=== PATIENT | female | born 2000 | race Hispanic/Latino ===

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

== ENCOUNTER 2022-11-10 00:15 | Emergency (ER) | payer OTHER ==
--- OUTSIDE RECORDS SUMMARY | 2022-11-10 00:27 | XMS REPORT | Continuity of Care Document ---
:2000 Author Organization [facility] t Address [address] [facility] [address] [place] [address] Care Team Providers Name Role Phone Radha Shore Primary Care Physician CORRINE HERNANDEZ Attending Clinician Unavailable CORRINE HERNANDEZ Attending Clinician Unavailable Joshua Dexter MD Attending Clinician JOSHUA DEXTER Attending Clinician Unavailable JOSHUA DEXTER Attending Clinician Unavailable Matheus Reina MD Attending Clinician Lisa Ross MD Attending Clinician [phone] SIN GELLER Attending Clinician Unavailable RADHA BARTHOLOMEW Attending Clinician Unavailable Doctor Unassigned, Ceres Attending Clinician Unavailable Radha Shore Attending Clinician LINDA BLAS Attending Clinician Unavailable 1, [facility] Room Attending Clinician Unavailable Linda Blas MD Attending Clinician LU EASON Attending Clinician Unavailable eJnaro MCKINNEY, Lu [place] Attending Clinician Risk, [facility] Provider/High Attending Clinician UnavailFabiola Bennett Attending Clinician Bin Diane MD Attending Clinician [phone] BIN DIANE Attending Clinician Unavailable KASANDRA VALENTINO Attending Clinician Unavailable KASANDRA VALENTINO Attending Clinician Unavailable Provider, [facility] Attending Clinician Unavailable Leda Roca MD Attending Clinician LEDA ROCA Attending Clinician Unavailable LEDA ROCA Attending Clinician Unavailable Arroyo [facility] Blanca Gaines Attending Clinician [phone] [facility] Nurse Vst, Fp Nrpt Pills Class Attending Clinician Unavailable Dixon BANKS, Guilherme Attending Clinician Veronica BANKS, Marni Attending Clinician JESSICA GARCIA Attending Clinician Unavailable Jessica Garcia DO Attending Clinician Don Frost MD Attending Clinician Dalton BANKS, Deborah [place] Attending Clinician BLANCA ARROYO Attending Clinician Unavailable Vega Ramos DO Attending Clinician Cassandra Burch Attending Clinician CASSANDRA GARCIA Attending Clinician Unavailable Ultrasound, [facility] Attending Clinician Unavailable Mohan Kaur MD Attending Clinician UNKNOWN, ATTENDING Attending Clinician Unavailable Delfina [facility] Fern[facility] Attending Clinician [phone] Lab, Ang-chp Attending Clinician Unavailable HENRY MATHIS Attending Clinician Unavailable Joshua Dexter MD Admitting Clinician JOSHUA DEXTER Admitting Clinician Unavailable JESSICA GARCIA Admitting Clinician Unavailable Jessica Garcia DO Admitting Clinician Payers Payer Name Policy Type Policy Number Effective Date Expiration Date [facility]- P [id number] MEDICAID [employer] [id number] 2022 STAR 00:00:00 Problems Condition Condition Condition Status Onset Resolution Last Treating Co mments Source Name Details Category Date Date Treatment Clinician Date 39 weeks 39 weeks Disease Active Unive rs gestation gestation 2-19 ity of of of 00:00: [place] 00 [facility] Depression Depression Disease Active U nivers 2-19 ity of 00:00: [place] 00 Medical Branch Anemia of Anemia of Disease Active Uni vers mother in mother in 8-09 [place]y of , , 00:[place] antepartum antepartum 00 Me dical Branch Rubella Rubella Disease Active Univers non-immune non-immune 6-30 it y of status, status, 00:00: [place] antepartum antepartum 00 Me dical Branch Previous Previous Disease Active Unive rs baby with baby with 6-28 ity of 00:00: [place] growth growth 00 Medical restrictio restrictio Br anch n n Previous Previous Disease Active Unive rs 6-28 ity of section section 00:00: [place] 00 Medical Branch Disease Active Uni vers related related 6-28 ity of nausea and nausea and 00:[place] vomiting, vomiting, 00 Medi stacy antepartum antepartum Br anch Vaginal Vaginal Disease Active Univers discharge discharge 6-28 ity of during during 00:00: [place] 00 Medi stacy in first in first Branch trimester trimester Disease Active Uni vers with with 6-28 [place] of abdominal abdominal 00:00[place] pain of pain of 00 Medical right right Branch lower lower quadrant, quadrant, antepartum antepartum 37 weeks 37 weeks Disease Active 2020-06 Unive rs gestation gestation 2-20 ity of of of 00:00: [place] 00 Medi stacy Branch GBS (group GBS (group Disease Active 2020-06 U nivers B B 2-14 ity of Streptococ Streptococ 00:00: [place] cus cus 00 Medical carrier), carrier), Bran ch +RV +RV culture, culture, currently currently Anemia of Anemia of Disease Active 2020-06 Uni vers mother in mother in 0-25 ity of , , 00:[place] antepartum antepartum 00 Me dical Branch COVID-19 COVID-19 Disease Active Unive rs affecting affecting 8-19 ity of , , 00:[place] antepartum antepartum 00 Me dical Branch Chlamydia Chlamydia Disease Active Uni vers infection infection 8-05 ity of affecting affecting 00:[place] Med[place]acy in second in second Bran ch trimester trimester Limited Limited Disease Active Univers 8-04 ity of care in care in 00:00: [place] second second 00 Medical trimester trimester Bran ch Rubella Rubella Disease Active Univers nonimmune nonimmune 01-28 ity of status, status, 00:00: [place] delivered, delivered, 00 Me dical current current Branch hospitaliz hospitaliz ation ation Supervisio Supervisio Disease Active U nivers n of high n of high 01-28 ity of risk risk 00:00: [place] 00 Medi stacy in first in first Branch trimester trimester Maternal Maternal Disease Active Unive rs varicella, varicella, 01-28 it y of non-immune non-immune 00:00: [place] 00 [place] Allergies, Adverse Reactions, Alerts Allergy Allergy Status Severity Reaction(s) Onset Inactive Treating Comm ents Source Name Type Date Date Clinician NO KNOWN Drug Active Univers ALLERGIE Class ity of S [facility] Social History Social Habit Start Date Stop Date Quantity Comments Source ASSERTION 2021-11-29 University of 00:00:[address] [facility] History SDOH University o f Alcohol Frequency [place] M edical Branch History SDOH University o f Alcohol Std [place] Medical Drinks Branch History SDOH University o f Alcohol Binge [place] Medic al [place] Alcohol intake 2022-08-16 2022-08-16 Ex-drinker [facility] 00:00:00 00:00:00 (finding) [facility] Exposure to 2022-08-05 2022-08-15 Not sure [facility] SARS-CoV-2 00:00:00 14:23:00 [facility] (event) [place] Tobacco use and 2022-02-02 2022-02-02 Smokeless tobacco Un iversity of exposure 00:00:00 00:00:00 non-user [facility] Alcohol Comment 2021-12-22 2021-12-22 quit with Universit y of 00:00:00 00:00:[address] [facility] Sex Assigned At 2000 2002 Universit y of 00:00:00 00:00:[address] [facility] Smoking Status Start Date Stop Date Source Never smoked tobacco [facility] Medications Ordered Filled Start Stop Current Ordering Indication Dosage Frequency Signature Comments Components Source Medication Medication Date Date Medication? Clinician (SIG) Name Name Yes [id number] 1{tbl} Take 1 Univers vitamin 2-21 tablet by ity of w/FA tablet 00:00[place] 00 the Medical morning. Branch docusate Yes [id number] 200mg Take 2 U nivers 100 mg 2-21 capsules ity of capsule 00:00: by mouth [place] 00 once daily Medical as needed Branch for Constipati on. ferrous Yes [id number] 325mg Take 1 Un jag sulfate 325 2-21 tablet by ity of mg (65 mg 00:00: [place] iron) 00 the Medical tablet morning Branch and 1 tablet in the evening. ibuprofen Yes [id number] 600mg Take 1 Univers 600 mg 2-21 tablet by ity of tablet 00:00: mouth [place] 00 every 6 Medical (six) Branch hours as needed (Pain). Take with food or milk. HYDROcodone 2022- Yes [id number] 1{tbl} Take 1 U nivers -acetaminop 2-21 08-25 tablet by it y of hen 5-325 00:00: 05:59 mouth [place] mg tablet 00 :00 every 6 Medical (six) Branch hours as needed (Pain scale above 4) for up to 7 days. Do not exceed 3 grams of acetaminop hen in 24 hours. Indication s: acute pain acetaminoph 2022- No 650mg 650 mg, U nivers en 08-16 Oral, ity of (TYLENOL) 23:30: 00:33 ONCE, 1 [place] tablet 650 00 :00 dose, On Medic al mg Tue08/16/22 at 1730, Routine diphenhydrA 2022- No 25mg 25 mg, Uni vers MINE 08-16 Slow IV ity of (BENADRYL) 23:30: 00:32 Push, [place] injection 00 :00 ONCE, 1 Medical 25 mg dose, On Branch Tue08/16/22 at 1730, Routine polyethylen Yes 17g 17 g, Unive rs e glycol -20 Oral, ity of 3350 powder 15:00: DAILY, [place] 17 g 00 First dose Medical on Tue08/16/22 at 0900, Until Discontinu ed, Routine polyethylen Yes 17g 17 g, Unive rs e glycol 2-20 Oral, ity of 3350 powder 15:00: DAILY, [place] 17 g 00 First dose Medical on [facility] 08/16/22 at 0900, Until Discontinu ed, Routine varicella Yes 1{each} 0.5 mL (1 Univers virus 2-20 Each), ity of vaccine 13:54: [place] live 08 , Medical (VARIVAX) ONCE-PRIOR Bran ch injection TO and diluent DISCHARGE, vial 1 dose, Starting on [facility] 08/16/22 at 0754, Until Discontinu ed, Routine, Give vaccine prior to discharge varicella Yes 1{each} 0.5 mL (1 Univers virus 2-20 Each), ity of vaccine 13:54: [place] live 08 , Medical (VARIVAX) ONCE-PRIOR Bran ch injection TO and diluent DISCHARGE, vial 1 dose, Starting on [facility] 08/16/22 at 0754, Until Discontinu ed, Routine, Give vaccine prior to discharge ibuprofen Yes 600mg 600 mg, Univ ers (IBU) 2-20 Oral, Q6H, ity of tablet 600 06:00: First dose [place] mg 00 on [facility] [place] [facility] 08/16/22 at Branch 0000, Until Discontinu ed, Routine ibuprofen Yes 600mg 600 mg, Univ ers (IBU) 2-20 Oral, Q6H, ity of tablet 600 06:00: First dose [place] mg 00 on [facility] [place] [facility] 08/16/22 at Branch 0000, Until Discontinu ed, Routine lactated 2022- No 1000mL at 125 [facility] ers ringers IV 2-20 02-20 mL/hr, ity of infusion 03:45: 05:19 1,000 mL, [place] as 1,000 mL 00 :24 IV Medical Infusion, [place] ONCE, 1 dose, On [place] 08/15/22 at 2145, Routine rho(D) Yes 300ug 300 mcg, Univer s immune 2-20 Intramuscu ity of globulin 03:42: lar, ONCE, [place] as (RHOGAM) 20 For 1 Medical syringe 300 dose, Branch mcg Conditiona l, Routine rho(D) Yes 300ug 300 mcg, Univer s immune 2-20 Intramuscu ity of globulin 03:42: lar, ONCE, [place] as (RHOGAM) 20 For 1 Medical syringe 300 dose, Branch mcg Conditiona l, Routine HYDROcodone 2022-0 Yes 2{tbl} 2 tablet, Univers -acetaminop 2-20 Oral, ity of hen (NORCO 03:42: Q6HPRN, [place] 5) 5-325 mg 15 Starting Medi stacy tablet 2 on [place] tablet 08/15/22 at 2142, Until Discontinu ed, Routine, Pain (scale 7-10), Alternate with Ibuprofen HYDROcodone 2022-0 Yes 1{tbl} 1 tablet, Univers -acetaminop 2-20 Oral, ity of hen (NORCO 03:42: Q6HPRN, [place] 5) 5-325 mg 15 Starting Medi stacy tablet 1 on [place] tablet 08/15/22 at 2142, Until Discontinu ed, Routine, Pain (scale 4-6), Alternate with Ibuprofen human 2022-0 Yes .5mL 0.5 mL, Univers papillomav 2-20 Intramuscu ity of vac,9-zafar(P 03:42: lar, [place] F) 15 ONCE-PRIOR Medical (GARDASIL-9 TO Branch ) syringe DISCHARGE, 0.5 mL 1 dose, Starting on 08/15/22 at 2142, Until Discontinu ed, Routine, Give vaccine prior to discharge diphenhydrA 2022-0 Yes 25mg 25 mg, Univ ers MINE 2-20 Slow IV ity of (BENADRYL) 03:42: Push, [place] injection 15 Q6HPRN, Medical 25 mg Starting Branch on 08/15/22 at 2142, Until Discontinu ed, Routine, Itching diphenhydrA 2022-0 Yes 25mg 25 mg, Univ ers MINE 2-20 Oral, ity of (BENADRYL) 03:42: Q6HPRN, [place] tablet 25 15 Starting Medica l mg on [place] 08/15/22 at 2142, Until Discontinu ed, Routine, Sleep, Itching ondansetron 2022-0 Yes 4mg 4 mg, Slow Univers (ZOFRAN 2-20 IV Push, ity of (PF)) 03:42: Q8HPRN, [place] injection 4 15 Starting Medi stacy mg on [place] 08/15/22 at 2142, Until Discontinu ed, Routine, Nausea and Vomiting (N/V) bisacodyL 2022-0 Yes 10mg 10 mg, Univer s (DULCOLAX) 2-20 Rectal, ity of suppository 03:42: QDAILYPRN, [place] 10 mg 15 Starting Medical on [place] 08/15/22 at 2142, Until Discontinu ed, Routine, Constipati on simethicone 2022-0 Yes 160mg 160 mg, Un jag (GAS RELIEF 2-20 Oral, ity of (SIMETHICON 03:42: PC+HSPRN, [place] E)) 15 Starting Medical chewable on [place] tablet 160 08/15/22 at mg 2141, Until Discontinu ed, Routine, Gas magnesium 2022-0 Yes 30mL 30 mL, Univer s hydroxide 2-20 Oral, ity of (MILK OF 03:42: QDAILYPRN, [place] as MAGNESIA) 15 Starting Medica l 400 mg/5 mL on [place] suspension 08/15/22 at 30 mL 2141, Until Discontinu ed, Routine, Constipati on lactated 2022-0 Yes 1000mL at 125 Unive rs ringers IV 2-20 mL/hr, ity of infusion 03:42: 1,000 mL, [place] 1,000 mL 15 IV Medical Infusion, Branch PRN, 1 dose, Starting on 08/15/22 at 2142, Until Discontinu ed, Routine HYDROcodone 2022-0 Yes 2{tbl} 2 tablet, Univers -acetaminop 2-20 Oral, ity of hen (NORCO 03:42: Q6HPRN, [place] 5) 5-325 mg 15 Starting Medi stacy tablet 2 on [place] tablet 08/15/22 at 2142, Until Discontinu ed, Routine, Pain (scale 7-10), Alternate with Ibuprofen HYDROcodone 2022-0 Yes 1{tbl} 1 tablet, Univers -acetaminop 2-20 Oral, ity of hen (NORCO 03:42: Q6HPRN, [place] 5) 5-325 mg 15 Starting Medi stacy tablet 1 on [place] tablet 08/15/22 at 2142, Until Discontinu ed, Routine, Pain (scale 4-6), Alternate with Ibuprofen human 2022-0 Yes .5mL 0.5 mL, Univers papillomav 2-20 Intramuscu ity of vac,9-zafar(P 03:42: lar, [place] F) 15 ONCE-PRIOR Medical (GARDASIL-9 TO [place] ) syringe DISCHARGE, 0.5 mL 1 dose, Starting on [place] 08/15/22 at 2142, Until Discontinu ed, Routine, Give vaccine prior to discharge diphenhydrA 3-0 Yes 25mg 25 mg, Univ ers MINE 2-20 Slow IV ity of (BENADRYL) 03:42: Push, [place] injection 15 Q6HPRN, Medical 25 mg Starting Branch on 08/15/22 at 2142, Until Discontinu ed, Routine, Itching diphenhydrA 3-0 Yes 25mg 25 mg, Univ ers MINE 2-20 Oral, ity of (BENADRYL) 03:42: Q6HPRN, [place] tablet 25 15 Starting Medica l mg on [facility] 08/15/22 at 2142, Until Discontinu ed, Routine, Sleep, Itching ondansetron 3-0 Yes 4mg 4 mg, Slow Univers (ZOFRAN 2-20 IV Push, ity of (PF)) 03:42: Q8HPRN, [place] injection 4 15 Starting Medi stacy mg on [facility] 08/15/22 at 2142, Until Discontinu ed, Routine, Nausea and Vomiting (N/V) bisacodyL 3-0 Yes 10mg 10 mg, Univer s (DULCOLAX) 2-20 Rectal, ity of suppository 03:42: QDAILYPRN, [place] 10 mg 15 Starting Medical on [facility] 08/15/22 at 2142, Until Discontinu ed, Routine, Constipati on simethicone 2023-0 Yes 160mg 160 mg, Un jag (GAS RELIEF 2-20 Oral, ity of (SIMETHICON 03:42: PC+HSPRN, [place] E)) 15 Starting Medical chewable on [facility] tablet 160 08/15/22 at mg 2, Until Discontinu ed, Routine, Gas magnesium 3-0 Yes 30mL 30 mL, Univer s hydroxide 2-20 Oral, ity of (MILK OF 03:42: QDAILYPRN, [place] as MAGNESIA) 15 Starting Medica l 400 mg/5 mL on [place] suspension 08/15/22 at 30 mL 2141, Until Discontinu ed, Routine, Constipati on lactated 2022- Yes 1000mL at 125 Unive rs ringers IV 2-20 mL/hr, ity of infusion 03:42: 1,000 mL, [place] 1,000 mL 15 IV Medical Infusion, Branch PRN, 1 dose, Starting on 08/15/22 at 2141, Until Discontinu ed, Routine ondansetron 2022- No Slow IV Un jag (ZOFRAN 2-20 02-20 Push, ONCE ity o f (PF)) 02:43: 03:36 INTRA [place] injection 00 :14 PROCEDURE, Medi stacy Starting Branch on 08/15/22 at 2042, Until 08/15/22 at 2135, Routine, Intra-op ondansetron 2022- No Slow IV Un jag (ZOFRAN 2-20 02-20 Push, ONCE ity o f (PF)) 02:43: 03:36 INTRA [place] injection 00 :14 PROCEDURE, Medi stacy Starting Branch on 08/15/22 at 2042, Until 08/15/22 at 2135, Routine, Intra-op ondansetron 2022-2022- No Slow IV Un jag (ZOFRAN 2-20 02-20 Push, ONCE ity o f (PF)) 02:43: 03:36 INTRA [place] injection 00 :14 PROCEDURE, Medi stacy Starting Branch on 08/15/22 at 2042, Until 08/15/22 at 2135, Routine, Intra-op ondansetron 2022-2022- No Slow IV Un jag (ZOFRAN 2-20 02-20 Push, ONCE ity o f (PF)) 02:43: 03:36 INTRA [place] injection 00 :14 PROCEDURE, Medi stacy Starting Branch on 08/15/22 at 2042, Until 08/15/22 at 2135, Routine, Intra-op ondansetron 2022-0 2022- No Slow IV Un jag (ZOFRAN 2-20 02-20 Push, ONCE ity o f (PF)) 02:43: 03:36 INTRA [place] injection 00 :14 PROCEDURE, Medi stacy Starting Branch on 08/15/22 at 2042, Until 08/15/22 at 2135, Routine, Intra-op ondansetron 2022-2022- No Slow IV Un jag (ZOFRAN 2-20 02-20 Push, ONCE ity o f (PF)) 02:43: 03:36 INTRA [place] injection 00 :14 PROCEDURE, Medi stacy Starting Branch on 08/15/22 at 2042, Until 08/15/22 at 2135, Routine, Intra-op ondansetron 2022-2022- No Slow IV Un jag (ZOFRAN 2-20 02-20 Push, ONCE ity o f (PF)) 02:43: 03:36 INTRA [place] injection 00 :14 PROCEDURE, Medi stacy Starting Branch on 08/15/22 at 2042, Until 08/15/22 at 2135, Routine, Intra-op ondansetron 2022-2022- No Slow IV Un jag (ZOFRAN 2-20 02-20 Push, ONCE ity o f (PF)) 02:43: 03:36 INTRA [place] injection 00 :14 PROCEDURE, Medi stacy Starting Branch on 08/15/22 at 2042, Until 08/15/22 at 2135, Routine, Intra-op ondansetron 2022-2022- No Slow IV Un jag (ZOFRAN 2-20 02-20 Push, ONCE ity o f (PF)) 02:43: 03:36 INTRA [place] injection 00 :14 PROCEDURE, Medi stacy Starting Branch on 08/15/22 at 2042, Until 08/15/22 at 2135, Routine, Intra-op oxytocin 2022-2022- No IV Univers (PITOCIN) 2-20 Infusion, ity of 30 units in 02:41: 03:36 CONTINUOUS [place] NS 500 mL 00 :14 PRN, Medical IV infusion Starting Bran ch on 08/15/22 at 2040, Until 08/15/22 at 2135, Routine, Intra-op oxytocin 2022-2022- No IV Univers (PITOCIN) 2-20 Infusion, ity of 30 units in 02:41: 03:36 CONTINUOUS [place] NS 500 mL 00 :14 PRN, Medical IV infusion Starting Bran ch on 08/15/22 at 2040, Until 08/15/22 at 2135, Routine, Intra-op oxytocin 2022- No IV Univers (PITOCIN) 08-16 Infusion, ity of 30 units in 02:41: 03:36 CONTINUOUS [place] NS 500 mL 00 :14 PRN, Medical IV infusion Starting Bran ch on 08/15/22 at 2040, Until 08/15/22 at 2135, Routine, Intra-op oxytocin 2022- No IV Univers (PITOCIN) 08-16 Infusion, ity of 30 units in 02:41: 03:36 CONTINUOUS [place] NS 500 mL 00 :14 PRN, Medical IV infusion Starting Bran ch on 08/15/22 at 2040, Until 08/15/22 at 2135, Routine, Intra-op oxytocin 2022- No IV Univers (PITOCIN) 08-16 Infusion, ity of 30 units in 02:41: 03:36 CONTINUOUS [place] NS 500 mL 00 :14 PRN, Medical IV infusion Starting Bran ch on 08/15/22 at 2040, Until 08/15/22 at 2135, Routine, Intra-op oxytocin 2022- No IV Univers (PITOCIN) 08-16 Infusion, ity of 30 units in 02:41: 03:36 CONTINUOUS [place] NS 500 mL 00 :14 PRN, Medical IV infusion Starting Bran ch on 08/15/22 at 2040, Until 08/15/22 at 2135, Routine, Intra-op oxytocin 2022- No IV Univers (PITOCIN) 08-16 Infusion, ity of 30 units in 02:41: 03:36 CONTINUOUS [place] NS 500 mL 00 :14 PRN, Medical IV infusion Starting Bran ch on 08/15/22 at 2040, Until 08/15/22 at 2135, Routine, Intra-op oxytocin 2022- No IV Univers (PITOCIN) 08-16 Infusion, ity of 30 units in 02:41: 03:36 CONTINUOUS [place] NS 500 mL 00 :14 PRN, Medical IV infusion Starting Bran ch on 08/15/22 at 2040, Until 08/15/22 at 2136, Routine, Intra-op oxytocin 2022-2022- No IV Univers (PITOCIN) 08-16 Infusion, ity of 30 units in 02:41: 03:36 CONTINUOUS [place] NS 500 mL 00 :14 PRN, Medical IV infusion Starting Bran ch on [place] 08/15/22 at 2040, Until [place] 08/15/22 at 2136, Routine, Intra-op ceFAZolin 2022-2022- No Slow IV Univ ers (ANCEF) 08-16 Push, ONCE ity o f injection 02:25: 03:36 INTRA [place] 00 :14 PROCEDURE, Medical Starting Branch on [place] 08/15/22 at 2024, Until [place] 08/15/22 at 2136, JOSELINE, Intra-op ceFAZolin 2022-2022- No Slow IV Univ ers (ANCEF) 08-16 Push, ONCE ity o f injection 02:25: 03:36 INTRA [place] 00 :14 PROCEDURE, Medical Starting Branch on [place] 08/15/22 at 2024, Until [place] 08/15/22 at 6, JOSELINE, Intra-op ceFAZolin 2022-2022- No Slow IV Univ ers (ANCEF) 08-16 Push, ONCE ity o f injection 02:25: 03:36 INTRA [place] 00 :14 PROCEDURE, Medical Starting Branch on [place] 08/15/22 at 2024, Until [place] 08/15/22 at 2136, JOSELINE, Intra-op ceFAZolin 2022- No Slow IV Univ ers (ANCEF) 08-16 Push, ONCE ity o f injection 02:25: 03:36 INTRA [place] 00 :14 PROCEDURE, Medical Starting Branch on [place] 08/15/22 at 2024, Until [place] 08/15/22 at 2136, JOSELINE, Intra-op ceFAZolin 2022-2022- No Slow IV Univ ers (ANCEF) 08-16 Push, ONCE ity o f injection 02:25: 03:36 INTRA [place] 00 :14 PROCEDURE, Medical Starting Branch on [place] 08/15/22 at 2024, Until [place] 08/15/22 at 2136, JOSELINE, Intra-op ceFAZolin 2022-2022- No Slow IV Univ ers (ANCEF) 08-16 Push, ONCE ity o f injection 02:25: 03:36 INTRA [place] 00 :14 PROCEDURE, Medical Starting Branch on [place] 08/15/22 at 2024, Until [place] 08/15/22 at 2135, JOSELINE, Intra-op ceFAZolin 2022-2022- No Slow IV Univ ers (ANCEF) 08-16 Push, ONCE ity o f injection 02:25: 03:36 INTRA [place] 00 :14 PROCEDURE, Medical Starting Branch on [place] 08/15/22 at 2024, Until [place] 08/15/22 at 2135, JOSELINE, Intra-op ceFAZolin 2022- No Slow IV Univ ers (ANCEF) 08-16 Push, ONCE ity o f injection 02:25: 03:36 INTRA [place] 00 :14 PROCEDURE, Medical Starting Branch on [place] 08/15/22 at 2024, Until [place] 08/15/22 at 2135, JOSELINE, Intra-op ceFAZolin 2022- No Slow IV Univ ers (ANCEF) 08-16 Push, ONCE ity o f injection 02:25: 03:36 INTRA [place] 00 :14 PROCEDURE, Medical Starting Branch on [place] 08/15/22 at 2024, Until [place] 08/15/22 at 2135, JOSELINE, Intra-op PHENYLephri 2022- No Slow IV Un jag ne 1000 08-16 Push, ity of mcg/10 mL 02:21: 03:36 [place]INUOUS [place] in 0.9% 00 :14 PRN, Medical NaCl Starting Branch syringe on [place] 08/15/22 at 2020, Until [place] 08/15/22 at 2135, Routine, Intra-op PHENYLephri 2022- No Slow IV Un jag ne 1000 08-16 Push, ity of mcg/10 mL 02:21: 03:36 CONTINUOUS [place] in 0.9% 00 :14 PRN, Medical NaCl Starting Branch syringe on [place] 08/15/22 at 2020, Until [place] 08/15/22 at 2135, Routine, Intra-op PHENYLephri 2022-2022- No Slow IV Un jag ne 1000 08-16 Push, ity of mcg/10 mL 02:21: 03:36 CONTINUOUS [place] in 0.9% 00 :14 PRN, Medical NaCl Starting Branch syringe on 08/15/22 at 2020, Until 08/15/22 at 2135, Routine, Intra-op PHENYLephri 2022-2022- No Slow IV Un jag ne 1000 2-20 02-20 Push, ity of mcg/10 mL 02:21: 03:36 CONTINUOUS [place] in 0.9% 00 :14 PRN, Medical NaCl Starting Branch syringe on 08/15/22 at 2020, Until 08/15/22 at 2136, Routine, Intra-op PHENYLephri 2022- No Slow IV Un jag ne 1000 2- 02-20 Push, ity of mcg/10 mL 02:21: 03:36 CONTINUOUS [place] in 0.9% 00 :14 PRN, Medical NaCl Starting Branch syringe on 08/15/22 at 2020, Until 08/15/22 at 2135, Routine, Intra-op PHENYLephri 2022- No Slow IV Un jag ne 1000 - 02-20 Push, ity of mcg/10 mL 02:21: 03:36 CONTINUOUS [place] in 0.9% 00 :14 PRN, Medical NaCl Starting Branch syringe on 08/15/22 at 2020, Until 08/15/22 at 2135, Routine, Intra-op PHENYLephri 2022- No Slow IV Un jag ne 1000 - 02-20 Push, ity of mcg/10 mL 02:21: 03:36 CONTINUOUS [place] in 0.9% 00 :14 PRN, Medical NaCl Starting Branch syringe on 08/15/22 at 2020, Until 08/15/22 at 2135, Routine, Intra-op PHENYLephri 2022-2022- No Slow IV Un jag ne 1000 2-20 02-20 Push, ity of mcg/10 mL 02:21: 03:36 CONTINUOUS [place] in 0.9% 00 :14 PRN, Medical NaCl Starting Branch syringe on 08/15/22 at 2020, Until 08/15/22 at 2135, Routine, Intra-op PHENYLephri 2022-2022- No Slow IV Un jag ne 1000 08-16 Push, ity of mcg/10 mL 02:21: 03:36 CONTINUOUS [place] in 0.9% 00 :14 PRN, Medical NaCl Starting Branch syringe on 08/15/22 at 2020, Until 08/15/22 at 2135, Routine, Intra-op FENTanyl PF 2022-2022- No Epidural, Univers (SUBLIMAZE 08-16 ONCE INTRA it y of (PF)) 02:20: 03:36 PROCEDURE, [place] injection 00 :14 Starting Medica l on [place] 08/15/22 at 2019, Until 08/15/22 at 2135, Routine, Intra-op morpHINE PF 2022- No Epidural, Univers (DURAMORPH- 08-16 ONCE INTRA i ty of PF) 02:20: 03:36 PROCEDURE, [place] injection 00 :14 Starting Medica l on [place] 08/15/22 at 2019, Until 08/15/22 at 2135, Routine, Intra-op bupivacaine 2022- No Retrobulba [facility] (preserv 08-16 r - Right ity o f free) 02:20: 03:36 Eye, ONCE [place] (MARCAINE 00 :14 INTRA Medical (PF)) 0.75 PROCEDURE, Bra nch % (7.5 Starting mg/mL) on Sun injection 08/15/22 at 2019, Until 08/15/22 at 2135, Routine, Intra-op FENTanyl PF 2022- No Epidural, [facility] (SUBLIMAZE 08-16 ONCE INTRA it y of (PF)) 02:20: 03:36 PROCEDURE, [place] injection 00 :14 Starting Medica l on Sun Branch 08/15/22 at 2019, Until 08/15/22 at 2135, Routine, Intra-op morpHINE PF 2022- No Epidural, [facility] (DURAMORPH- 08-16 ONCE INTRA i ty of PF) 02:20: 03:36 PROCEDURE, [place] injection 00 :14 Starting Medica l on Sun Branch 08/15/22 at 2019, Until 08/15/22 at 2135, Routine, Intra-op bupivacaine 2022- No Retrobulba [facility] (preserv 2-20 02-20 r - Right ity o f free) 02:20: 03:36 Eye, ONCE [place] (MARCAINE 00 :14 INTRA Medical (PF)) 0.75 PROCEDURE, Bra nch % (7.5 Starting mg/mL) on Sun injection 08/15/22 at 2020, Until 08/15/22 at 2136, Routine, Intra-op FENTanyl PF 2022-2022- No Epidural, [facility] (SUBLIMAZE 2-16 08-20 ONCE INTRA it y of (PF)) 02:20: 03:36 PROCEDURE, [place] injection 00 :14 Starting Medica l on Sun Branch 08/15/22 at 2019, Until 08/15/22 at 2136, Routine, Intra-op morpHINE PF 2022-2022- No Epidural, [facility] (DURAMORPH- 2-16 08-20 ONCE INTRA i ty of PF) 02:20: 03:36 PROCEDURE, [place] injection 00 :14 Starting Medica l on Sun Branch 08/15/22 at 2019, Until 08/15/22 at 2135, Routine, Intra-op bupivacaine 2022-2022- No Retrobulba [facility] (preserv 2- 02-20 r - Right ity o f free) 02:20: 03:36 Eye, ONCE [place] (MARCAINE 00 :14 INTRA Medical (PF)) 0.75 PROCEDURE, Bra nch % (7.5 Starting mg/mL) on Sun injection 08/15/22 at 2019, Until 08/15/22 at 2136, Routine, Intra-op FENTanyl PF 2022-2022- No Epidural, [facility] (SUBLIMAZE 2-20 ONCE INTRA it y of (PF)) 02:20: 03:36 PROCEDURE, [place] injection 00 :14 Starting Medica l on Sun Branch 08/15/22 at 2020, Until 08/15/22 at 2136, Routine, Intra-op morpHINE PF 2022-2022- No Epidural, [facility] (DURAMORPH- 2-16 08-20 ONCE INTRA i ty of PF) 02:20: 03:36 PROCEDURE, [place] injection 00 :14 Starting Medica l on Sun Branch 08/15/22 at 2020, Until 08/15/22 at 2136, Routine, Intra-op bupivacaine 2022-2022- No Retrobulba [facility] (preserv 2-20 02-20 r - Right ity o f free) 02:20: 03:36 Eye, ONCE [place] (MARCAINE 00 :14 INTRA Medical (PF)) 0.75 PROCEDURE, Bra nch % (7.5 Starting mg/mL) on Sun injection 08/15/22 at 2020, Until 08/15/22 at 2136, Routine, Intra-op FENTanyl PF 2022-2022- No Epidural, [facility] (SUBLIMAZE 2- 02-20 ONCE INTRA it y of (PF)) 02:20: 03:36 PROCEDURE, [place] injection 00 :14 Starting Medica l on Sun Branch 08/15/22 at 2019, Until 08/15/22 at 2136, Routine, Intra-op morpHINE PF 2022- No Epidural, Univers (DURAMORPH- 2-16 08-20 ONCE INTRA i ty of PF) 02:20: 03:36 PROCEDURE, [place] injection 00 :14 Starting Medica l on Sun Branch 08/15/22 at 2019, Until 08/15/22 at 6, Routine, Intra-op bupivacaine 2022-2022- No Retrobulba [facility] (preserv 2-20 02-20 r - Right ity o f free) 02:20: 03:36 Eye, ONCE [place] (MARCAINE 00 :14 INTRA Medical (PF)) 0.75 PROCEDURE, Bra nch % (7.5 Starting mg/mL) on Sun injection 08/15/22 at 2019, Until 08/15/22 at 213, Routine, Intra-op FENTanyl PF 2022- No Epidural, [facility] (SUBLIMAZE 2-20 02-20 ONCE INTRA it y of (PF)) 02:20: 03:36 PROCEDURE, [place] injection 00 :14 Starting Medica l on Sun Branch 08/15/22 at 2020, Until 08/15/22 at 2136, Routine, Intra-op morpHINE PF 2022- No Epidural, Univers (DURAMORPH- 2-20 02-20 ONCE INTRA i ty of PF) 02:20: 03:36 PROCEDURE, [place] injection 00 :14 Starting Medica l on Sun Branch 08/15/22 at 2019, Until 08/15/22 at 2136, Routine, Intra-op bupivacaine 2022-2022- No Retrobulba [facility] (preserv 2-20 02-20 r - Right ity o f free) 02:20: 03:36 Eye, ONCE [place] (MARCAINE 00 :14 INTRA Medical (PF)) 0.75 PROCEDURE, Bra nch % (7.5 Starting mg/mL) on Sun injection 08/15/22 at 2020, Until 08/15/22 at 2135, Routine, Intra-op FENTanyl PF 2022- No Epidural, [facility] (SUBLIMAZE 2- 02-20 ONCE INTRA it y of (PF)) 02:20: 03:36 PROCEDURE, [place] injection 00 :14 Starting Medica l on Sun Branch 08/15/22 at 2019, Until 08/15/22 at 2135, Routine, Intra-op morpHINE PF 2022- No Epidural, Univers (DURAMORPH- 2- 02-20 ONCE INTRA i ty of PF) 02:20: 03:36 PROCEDURE, [place] injection 00 :14 Starting Medica l on Sun Branch 08/15/22 at 2019, Until 08/15/22 at 2135, Routine, Intra-op bupivacaine 2022-2022- No Retrobulba [facility] (preserv 2-20 02-20 r - Right ity o f free) 02:20: 03:36 Eye, ONCE [place] (MARCAINE 00 :14 INTRA Medical (PF)) 0.75 PROCEDURE, Bra nch % (7.5 Starting mg/mL) on Sun injection 08/15/22 at 2019, Until 08/15/22 at 2135, Routine, Intra-op FENTanyl PF 2022- No Epidural, [facility] (SUBLIMAZE 2- 02-20 ONCE INTRA it y of (PF)) 02:20: 03:36 PROCEDURE, [place] injection 00 :14 Starting Medica l on Sun Branch 08/15/22 at 2019, Until 08/15/22 at 2135, Routine, Intra-op morpHINE PF 2022-2022- No Epidural, [facility] (DURAMORPH- 2-20 02-20 ONCE INTRA i ty of PF) 02:20: 03:36 PROCEDURE, [place] injection 00 :14 Starting Medica l on Sun Branch 08/15/22 at 2019, Until 08/15/22 at 2135, Routine, Intra-op bupivacaine 2022- No Retrobulba [facility] (preserv 08-16 r - Right ity o f free) 02:20: 03:36 Eye, ONCE [place] (MARCAINE 00 :14 INTRA Medical (PF)) 0.75 PROCEDURE, Bra nch % (7.5 Starting mg/mL) on Sun injection 08/15/22 at 2019, Until 08/15/22 at 2135, Routine, Intra-op FENTanyl PF 2022- No Epidural, [facility] (SUBLIMAZE 08-16 ONCE INTRA it y of (PF)) 02:20: 03:36 PROCEDURE, [place] injection 00 :14 Starting Medica l on Sun Branch 08/15/22 at 2019, Until 08/15/22 at 2135, Routine, Intra-op morpHINE PF 2022- No Epidural, [facility] (DURAMORPH- 08-16 ONCE INTRA i ty of PF) 02:20: 03:36 PROCEDURE, [place] injection 00 :14 Starting Medica l on Sun Branch 08/15/22 at 2019, Until 08/15/22 at 2135, Routine, Intra-op bupivacaine 2022- No Retrobulba [facility] (preserv 08-16 r - Right ity o f free) 02:20: 03:36 Eye, ONCE [place] (MARCAINE 00 :14 INTRA Medical (PF)) 0.75 PROCEDURE, Bra nch % (7.5 Starting mg/mL) on Sun injection 08/15/22 at 2019, Until 08/15/22 at 2135, Routine, Intra-op acetaminoph 2022- No 650mg 650 mg, U nivers en 08-15 Oral, ity of (TYLENOL) 23:00: 01:51 ONCE, 1 [place] tablet 650 00 :00 dose, On Medic al mg Sun Branch 08/15/22 at 1700, Routine lactated 2022- No 1000mL at 125 Univ ers ringers IV 08-15 02-20 mL/hr, ity of infusion 23:00: 03:42 1,000 mL, [place] 1,000 mL 00 :18 IV Medical Infusion, Branch CONTINUOUS , Starting on 08/15/22 at 1700, Until 08/15/22 at 2142, Routine lactated 2023-0 2023- No 1000mL at 125 Univ ers ringers IV 2-19 02-20 mL/hr, ity of infusion 23:00: 03:42 1,000 mL, [place] 1,000 mL 00 :18 IV Medical Infusion, Branch CONTINUOUS , Starting on 08/15/22 at 1700, Until 08/15/22 at 2142, Routine lactated 2023-0 2023- No 1000mL at 125 Univ ers ringers IV 2-19 02-20 mL/hr, ity of infusion 23:00: 03:42 1,000 mL, [place] 1,000 mL 00 :18 IV Medical Infusion, Branch CONTINUOUS , Starting on 08/15/22 at 1700, Until 08/15/22 at 2142, Routine lactated 2023-0 2023- No 1000mL at 125 Univ ers ringers IV 2-19 02-20 mL/hr, ity of infusion 23:00: 03:42 1,000 mL, [place] 1,000 mL 00 :18 IV Medical Infusion, Branch CONTINUOUS , Starting on 08/15/22 at 1700, Until 08/15/22 at 2142, Routine lactated 3-0 2023- No 1000mL at 125 Univ ers ringers IV 2-19 02-20 mL/hr, ity of infusion 23:00: 03:42 1,000 mL, [place] 1,000 mL 00 :18 IV Medical Infusion, Branch CONTINUOUS , Starting on 08/15/22 at 1700, Until 08/15/22 at 2142, Routine lactated 2023-0 2023- No 1000mL at 125 Univ ers ringers IV 2-19 02-20 mL/hr, ity of infusion 23:00: 03:42 1,000 mL, [place] 1,000 mL 00 :18 IV Medical Infusion, Branch CONTINUOUS , Starting on 08/15/22 at 1700, Until 08/15/22 at 2142, Routine lactated 2023-0 2023- No 1000mL at 125 Univ ers ringers IV 2-19 02-20 mL/hr, ity of infusion 23:00: 03:42 1,000 mL, [place] 1,000 mL 00 :18 IV Medical Infusion, Branch CONTINUOUS , Starting on 08/15/22 at 1700, Until 08/15/22 at 2142, Routine lactated 2022- No 1000mL at 125 Univ ers ringers IV 08-15 02-20 mL/hr, ity of infusion 23:00: 03:42 1,000 mL, [place] 1,000 mL 00 :18 IV Medical Infusion, Branch CONTINUOUS , Starting on 08/15/22 at 1700, Until 08/15/22 at 2142, Routine lactated 2022- No 1000mL at 125 Univ ers ringers IV 08-15 02-20 mL/hr, ity of infusion 23:00: 03:42 1,000 mL, [place] 1,000 mL 00 :18 IV Medical Infusion, Branch CONTINUOUS , Starting on 08/15/22 at 1700, Until 08/15/22 at 2142, Routine sodium 2022- No 30mL 30 mL, [facility] citrate-cit 08-15 Oral, ity of thaddeus acid 22:50: 01:53 PRE-PROCED [place] (BICITRA) 40 :00 URE ONCE, Medic al 500-334 1 dose, Branch mg/5 mL Starting solution 30 on Sun mL 08/15/22 at 1650, Until Discontinu ed, Routine, Surgery ceFAZolin No 2000mg 2,000 mg, [facility] (ANCEF) 08-15 IV ity of 2,000 mg in 22:49: 03:42 Piggyback, [place] NaCl 0.9% 14 :18 O.R. Medical (NS) 100 mL HOLDING Branc h MINI-BAG ONCE, Starting on 08/15/22 at 1649, Until 08/15/22 at 2142, Administer over 30 Minutes, 100 mL
Reas on for Anti-Infec tive: Surgical Prophylaxi s
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
Duration of therapy: within 24 hours of surgery lactated 2022-2022- No 500mL at 999 Unive rs ringers IV 08-15 02-20 mL/hr, 500 it y of infusion 21:20: 03:42 mL, IV [place] 500 mL 54 :18 Infusion, Medical PRN - SEE Branch INSTRUCTIO NS, Starting on 08/15/22 at 1520, Until 08/15/22 at 2142, Routine [id number] IV No 1000mL at 1-125 U nivers infusion 08-15 02-20 mL/hr, IV ity o f 1,000 mL 21:20: 03:42 Infusion, [place] 54 :18 TITRATE, Medical Starting Branch on 08/15/22 at 1520, Until 08/15/22 at 2142, Routine SERTraline No [id number] Take 0.5 [facility] 100 mg 07-27 100 tablets by ity of tablet 00:00: 05:59 mouth [place] 00 :00 daily for Medical 4 days, Branch THEN 1 tablet daily for 26 days. SERTraline No [id number] Take 0.5 [facility] 100 mg 07-27 100 tablets by ity of tablet 00:00: 05:59 mouth [place] 00 :00 daily for Medical 4 days, Branch THEN 1 tablet daily for 26 days. SERTraline No [id number] Take 0.5 [facility] 100 mg 07-27 100 tablets by ity of tablet 00:00: 05:59 mouth [place] 00 :00 daily for Medical 4 days, Branch THEN 1 tablet daily for 26 days. SERTraline No [id number] Take 0.5 [facility] 100 mg 07-27 100 tablets by ity of tablet 00:00: 05:59 mouth [place] 00 :00 daily for Medical 4 days, Branch THEN 1 tablet daily for 26 days. SERTraline No [id number] Take 0.5 [facility] 100 mg 07-27 100 tablets by ity of tablet 00:00: 05:59 mouth [place] 00 :00 daily for Medical 4 days, Branch THEN 1 tablet daily for 26 days. SERTraline No [id number] Take 0.5 [facility] 100 mg 07-27 100 tablets by ity of tablet 00:00: 05:59 mouth [place] 00 :00 daily for Medical 4 days, [place] THEN 1 tablet daily for 26 days. SERTraline No [id number] Take 0.5 [facility] 100 mg 07-27 100 tablets by ity of tablet 00:00: 05:59 mouth [place] 00 :00 daily for Medical 4 days, Branch THEN 1 tablet daily for 26 days. SERTraline 2022- No [id number] Take 0.5 [facility] 100 mg 07-27 100 tablets by ity of tablet 00:00: 05:59 mouth [place] 00 :00 daily for Medical 4 days, Branch THEN 1 tablet daily for 26 days. SERTraline 2022- No [id number] Take 0.5 [facility] 100 mg 07-27 100 tablets by ity of tablet 00:00: 05:59 mouth [place] 00 :00 daily for Medical 4 days, Branch THEN 1 tablet daily for 26 days. SERTraline 2022- No [id number] Take 0.5 [facility] 100 mg 07-27 100 tablets by ity of tablet 00:00: 05:59 mouth [place] 00 :00 daily for Medical 4 days, Branch THEN 1 tablet daily for 26 days. SERTraline 2022- No [id number] Take 0.5 [facility] 100 mg 07-27 100 tablets by ity of tablet 00:00: 05:59 mouth [place] 00 :00 daily for Medical 4 days, Branch THEN 1 tablet daily for 26 days. SERTraline 2022- No [id number] Take 0.5 [facility] 100 mg 07-27 100 tablets by ity of tablet 00:00: 05:59 mouth [place] 00 :00 daily for Medical 4 days, Branch THEN 1 tablet daily for 26 days. SERTraline 2022- No [id number] Take 0.5 [facility] 100 mg 07-27 100 tablets by ity of tablet 00:00: 05:59 mouth [place] 00 :00 daily for Medical 4 days, Branch THEN 1 tablet daily for 26 days. SERTraline 2022- No [id number] Take 0.5 [facility] 100 mg 07-27 100 tablets by ity of tablet 00:00: 05:59 mouth [place] 00 :00 daily for Medical 4 days, Branch THEN 1 tablet daily for 26 days. SERTraline 2022- No [id number] Take 0.5 [facility] 100 mg 07-27 100 tablets by ity of tablet 00:00: 05:59 mouth [place] 00 :00 daily for Medical 4 days, Branch THEN 1 tablet daily for 26 days. ferrous 2021-06- No [id number] 325mg Take 1 U nivers sulfate 325 07-18-22 tablet by it y of mg (65 mg 00:00: 04:59 mouth in [place] iron) 00 :00 the Medical tablet morning Branch and 1 tablet at noon and 1 tablet in the evening. Take with meals. Do all this for 180 days. ascorbic 2021-06- No [id number] 500mg Take 1 [facility] acid, 07-18 05-22 tablet by ity of vitamin C, 00:00: 04:59 mouth in [place] 500 mg 00 :00 the Medical tablet morning Branch and 1 tablet at noon and 1 tablet in the evening. Do all this for 180 days. ferrous 2021-06- No [id number] 325mg Take 1 U nivers sulfate 325 07-18-22 tablet by it y of mg (65 mg 00:00: 04:59 mouth in [place] iron) 00 :00 the Medical tablet morning Branch and 1 tablet at noon and 1 tablet in the evening. Take with meals. Do all this for 180 days. ascorbic 2021-06- No [id number] 500mg Take 1 [facility] acid, 07-18 05-22 tablet by ity of vitamin C, 00:00: 04:59 mouth in [place] 500 mg 00 :00 the Medical tablet morning Branch and 1 tablet at noon and 1 tablet in the evening. Do all this for 180 days. ferrous 2021-06- No [id number] 325mg Take 1 U nivers sulfate 325 07-18-22 tablet by it y of mg (65 mg 00:00: 04:59 mouth in [place] iron) 00 :00 the Medical tablet morning Branch and 1 tablet at noon and 1 tablet in the evening. Take with meals. Do all this for 180 days. ascorbic 2021-06- No [id number] 500mg Take 1 [facility] acid, 1-22 05-22 tablet by ity of vitamin C, 00:00: 04:59 mouth in [place] 500 mg 00 :00 the Medical tablet morning Branch and 1 tablet at noon and 1 tablet in the evening. Do all this for 180 days. ferrous 2021-06- No [id number] 325mg Take 1 U nivers sulfate 325 -15 11-22 tablet by it y of mg (65 mg 00:00: 04:59 mouth in [place] iron) 00 :00 the Medical tablet morning Branch and 1 tablet at noon and 1 tablet in the evening. Take with meals. Do all this for 180 days. ascorbic 2021-06- No [id number] 500mg Take 1 [facility] acid, -15 11-22 tablet by ity of vitamin C, 00:00: 04:59 mouth in [place] 500 mg 00 :00 the Medical tablet morning Branch and 1 tablet at noon and 1 tablet in the evening. Do all this for 180 days. ferrous 2021-06- No [id number] 325mg Take 1 U nivers sulfate 325 -15 11-22 tablet by it y of mg (65 mg 00:00: 04:59 mouth in [place] iron) 00 :00 the Medical tablet morning Branch and 1 tablet at noon and 1 tablet in the evening. Take with meals. Do all this for 180 days. ascorbic 2021-06- No [id number] 500mg Take 1 [facility] acid, -15 11-22 tablet by ity of vitamin C, 00:00: 04:59 mouth in [place] 500 mg 00 :00 the Medical tablet morning Branch and 1 tablet at noon and 1 tablet in the evening. Do all this for 180 days. ferrous 2021-06- No [id number] 325mg Take 1 U nivers sulfate 325 07-18-22 tablet by it y of mg (65 mg 00:00: 04:59 mouth in [place] iron) 00 :00 the Medical tablet morning Branch and 1 tablet at noon and 1 tablet in the evening. Take with meals. Do all this for 180 days. ascorbic 2021-06- No [id number] 500mg Take 1 [facility] acid, 1-22 -22 tablet by ity of vitamin C, 00:00: 04:59 mouth in [place] 500 mg 00 :00 the Medical tablet morning Branch and 1 tablet at noon and 1 tablet in the evening. Do all this for 180 days. ferrous 2021-06- No [id number] 325mg Take 1 U nivers sulfate 325 -22 05-22 tablet by it y of mg (65 mg 00:00: 04:59 mouth in [place] iron) 00 :00 the Medical tablet morning Branch and 1 tablet at noon and 1 tablet in the evening. Take with meals. Do all this for 180 days. ascorbic 2021-06- No [id number] 500mg Take 1 [facility] acid, 1-22 05-22 tablet by ity of vitamin C, 00:00: 04:59 mouth in [place] 500 mg 00 :00 the Medical tablet morning Branch and 1 tablet at noon and 1 tablet in the evening. Do all this for 180 days. ferrous 2021-06- No [id number] 325mg Take 1 U nivers sulfate 325 - 05-22 tablet by it y of mg (65 mg 00:00: 04:59 mouth in [place] iron) 00 :00 the Medical tablet morning Branch and 1 tablet at noon and 1 tablet in the evening. Take with meals. Do all this for 180 days. ascorbic 2021-06- No [id number] 500mg Take 1 [facility] acid, -22 05-22 tablet by ity of vitamin C, 00:00: 04:59 mouth in [place] 500 mg 00 :00 the Medical tablet morning Branch and 1 tablet at noon and 1 tablet in the evening. Do all this for 180 days. ferrous 2021-06- No [id number] 325mg Take 1 U nivers sulfate 325 - 05-22 tablet by it y of mg (65 mg 00:00: 04:59 mouth in [place] iron) 00 :00 the Medical tablet morning Branch and 1 tablet at noon and 1 tablet in the evening. Take with meals. Do all this for 180 days. ascorbic 2021-06- No [id number] 500mg Take 1 [facility] acid, 1-22 05-22 tablet by ity of vitamin C, 00:00: 04:59 mouth in [place] 500 mg 00 :00 the Medical tablet morning Branch and 1 tablet at noon and 1 tablet in the evening. Do all this for 180 days. ferrous 2021-06- No [id number] 325mg Take 1 U nivers sulfate 325 1-22 05-22 tablet by it y of mg (65 mg 00:00: 04:59 mouth in [place] iron) 00 :00 the Medical tablet morning Branch and 1 tablet at noon and 1 tablet in the evening. Take with meals. Do all this for 180 days. ascorbic 2021-06- No [id number] 500mg Take 1 [facility] acid, -15 11-22 tablet by ity of vitamin C, 00:00: 04:59 mouth in [place] 500 mg 00 :00 the Medical tablet morning Branch and 1 tablet at noon and 1 tablet in the evening. Do all this for 180 days. ferrous 2021-06- No [id number] 325mg Take 1 U nivers sulfate 325 07-18-22 tablet by it y of mg (65 mg 00:00: 04:59 mouth in [place] iron) 00 :00 the Medical tablet morning Branch and 1 tablet at noon and 1 tablet in the evening. Take with meals. Do all this for 180 days. ascorbic 2021-06 No [id number] 500mg Take 1 [facility] acid, 07-18-22 tablet by ity of vitamin C, 00:00: 04:59 mouth in [place] 500 mg 00 :00 the Medical tablet morning Branch and 1 tablet at noon and 1 tablet in the evening. Do all this for 180 days. ferrous 2021-06- No [id number] 325mg Take 1 U nivers sulfate 325 07-18- tablet by it y of mg (65 mg 00:00: 04:59 mouth in [place] iron) 00 :00 the Medical tablet morning Branch and 1 tablet at noon and 1 tablet in the evening. Take with meals. Do all this for 180 days. ascorbic 2021-06- No [id number] 500mg Take 1 [facility] acid, 07-18-22 tablet by ity of vitamin C, 00:00: 04:59 mouth in [place] 500 mg 00 :00 the Medical tablet morning Branch and 1 tablet at noon and 1 tablet in the evening. Do all this for 180 days. ferrous 2021-06- No [id number] 325mg Take 1 U nivers sulfate 325 -15 11-22 tablet by it y of mg (65 mg 00:00: 04:59 mouth in [place] iron) 00 :00 the Medical tablet morning Branch and 1 tablet at noon and 1 tablet in the evening. Take with meals. Do all this for 180 days. ascorbic 2021-06 No [id number] 500mg Take 1 [facility] acid, 1-22 05-22 tablet by ity of vitamin C, 00:00: 04:59 mouth in [place] 500 mg 00 :00 the Medical tablet morning Branch and 1 tablet at noon and 1 tablet in the evening. Do all this for 180 days. ferrous 2021-06- No [id number] 325mg Take 1 U nivers sulfate 325 - 05-22 tablet by it y of mg (65 mg 00:00: 04:59 mouth in [place] iron) 00 :00 the Medical tablet morning Branch and 1 tablet at noon and 1 tablet in the evening. Take with meals. Do all this for 180 days. ascorbic 2021-06- No [id number] 500mg Take 1 [facility] acid, 1-22 05-22 tablet by ity of vitamin C, 00:00: 04:59 mouth in [place] 500 mg 00 :00 the Medical tablet morning Branch and 1 tablet at noon and 1 tablet in the evening. Do all this for 180 days. ferrous 2021-06- No [id number] 325mg Take 1 U nivers sulfate 325 - 05-22 tablet by it y of mg (65 mg 00:00: 04:59 mouth in [place] iron) 00 :00 the Medical tablet morning Branch and 1 tablet at noon and 1 tablet in the evening. Take with meals. Do all this for 180 days. ascorbic 2021-06- No [id number] 500mg Take 1 [facility] acid, 1-22 05-22 tablet by ity of vitamin C, 00:00: 04:59 mouth in [place] 500 mg 00 :00 the Medical tablet morning Branch and 1 tablet at noon and 1 tablet in the evening. Do all this for 180 days. ferrous 2021-06- No [id number] 325mg Take 1 U nivers sulfate 325 -22 05-22 tablet by it y of mg (65 mg 00:00: 04:59 mouth in [place] iron) 00 :00 the Medical tablet morning Branch and 1 tablet at noon and 1 tablet in the evening. Take with meals. Do all this for 180 days. ascorbic 2021-06- No [id number] 500mg Take 1 [facility] acid, 1-22 05-22 tablet by ity of vitamin C, 00:00: 04:59 mouth in [place] 500 mg 00 :00 the Medical tablet morning Branch and 1 tablet at noon and 1 tablet in the evening. Do all this for 180 days. ferrous 2021-06- No [id number] 325mg Take 1 U nivers sulfate 325 - 05-22 tablet by it y of mg (65 mg 00:00: 04:59 mouth in [place] iron) 00 :00 the Medical tablet morning Branch and 1 tablet at noon and 1 tablet in the evening. Take with meals. Do all this for 180 days. ascorbic 2021-06- No [id number] 500mg Take 1 [facility] acid, -22 05-22 tablet by ity of vitamin C, 00:00: 04:59 mouth in [place] 500 mg 00 :00 the Medical tablet morning Branch and 1 tablet at noon and 1 tablet in the evening. Do all this for 180 days. ferrous 2021-06- No [id number] 325mg Take 1 U nivers sulfate 325 -15 11-22 tablet by it y of mg (65 mg 00:00: 04:59 mouth in [place] iron) 00 :00 the Medical tablet morning Branch and 1 tablet at noon and 1 tablet in the evening. Take with meals. Do all this for 180 days. ascorbic 2021-06- No [id number] 500mg Take 1 [facility] acid, -15 11-22 tablet by ity of vitamin C, 00:00: 04:59 mouth in [place] 500 mg 00 :00 the Medical tablet morning Branch and 1 tablet at noon and 1 tablet in the evening. Do all this for 180 days. ferrous 2021-06- No [id number] 325mg Take 1 U nivers sulfate 325 -15 11-22 tablet by it y of mg (65 mg 00:00: 04:59 mouth in [place] iron) 00 :00 the Medical tablet morning Branch and 1 tablet at noon and 1 tablet in the evening. Take with meals. Do all this for 180 days. ascorbic 2021-06- No [id number] 500mg Take 1 [facility] acid, 1-22 05-22 tablet by ity of vitamin C, 00:00: 04:59 mouth in [place] 500 mg 00 :00 the Medical tablet morning Branch and 1 tablet at noon and 1 tablet in the evening. Do all this for 180 days. ferrous 2021-06- No [id number] 325mg Take 1 U nivers sulfate 325 07-18-22 tablet by it y of mg (65 mg 00:00: 04:59 mouth in [place] iron) 00 :00 the Medical tablet morning Branch and 1 tablet at noon and 1 tablet in the evening. Take with meals. Do all this for 180 days. ascorbic 2021-06- No [id number] 500mg Take 1 [facility] acid, 07-18-22 tablet by ity of vitamin C, 00:00: 04:59 mouth in [place] 500 mg 00 :00 the Medical tablet morning Branch and 1 tablet at noon and 1 tablet in the evening. Do all this for 180 days. ferrous 2021-06- No [id number] 325mg Take 1 U nivers sulfate 325 07-18- tablet by it y of mg (65 mg 00:00: 04:59 mouth in [place] iron) 00 :00 the Medical tablet morning Branch and 1 tablet at noon and 1 tablet in the evening. Take with meals. Do all this for 180 days. ascorbic 2021-06- No [id number] 500mg Take 1 [facility] acid, 07-18- tablet by ity of vitamin C, 00:00: 04:59 mouth in [place] 500 mg 00 :00 the Medical tablet morning Branch and 1 tablet at noon and 1 tablet in the evening. Do all this for 180 days. ferrous 2021-06- No [id number] 325mg Take 1 U nivers sulfate 325 07-18 tablet by it y of mg (65 mg 00:00: 04:59 mouth in [place] iron) 00 :00 the Medical tablet morning Branch and 1 tablet at noon and 1 tablet in the evening. Take with meals. Do all this for 180 days. ascorbic 2021-06- No [id number] 500mg Take 1 [facility] acid, 07-18-22 tablet by ity of vitamin C, 00:00: 04:59 mouth in [place] 500 mg 00 :00 the Medical tablet morning Branch and 1 tablet at noon and 1 tablet in the evening. Do all this for 180 days. ferrous 2021-06- No [id number] 325mg Take 1 U nivers sulfate 325 1-22 02-21 tablet by it y of mg (65 mg 00:00: 00:00 mouth in [place] iron) 00 :00 the Medical tablet morning Branch and 1 tablet at noon and 1 tablet in the evening. Take with meals. Do all this for 180 days. ascorbic 2021-06- No [id number] 500mg Take 1 [facility] acid, 07-18 tablet by ity of vitamin C, 00:00: 00:00 mouth [place] 500 mg 00 :00 the Medical tablet morning Branch and 1 tablet at noon and 1 tablet in the evening. Do all this for 180 days. fluconazole 2021-06- No [id number] 150mg Take 1 [facility] 150 mg 0-03 10-04 tablet by ity of tablet 00:00: 04:59 mouth [place] 00 :[place] now for 1 Medical dose. Branch fluconazole 2021-06- No [id number] 150mg Take 1 [facility] 150 mg 0-03 10-04 tablet by ity of tablet 00:00: 04:59 mouth [place] 00 :00 now for 1 Medical dose. Branch PNV 67-iron Yes [id number] 1{tbl} Take 1 [facility] ps-folate 8-09 tablet by ity o f no.1-dha 00:00: mouth [place] (VITAFOL 00 daily. Medical ULTRA) 29 Branch mg iron- 1 mg-200 mg Cap PNV 67-iron Yes [id number] 1{tbl} Take 1 [facility] ps-folate 8-09 tablet by ity o f no.1-dha 00:00: mouth [place] (VITAFOL 00 daily. Medical ULTRA) 29 Branch mg iron- 1 mg-200 mg Cap PNV 67-iron Yes [id number] 1{tbl} Take 1 [facility] ps-folate 8-09 tablet by ity o f no.1-dha 00:00: mouth [place] (VITAFOL 00 daily. Medical ULTRA) 29 Branch mg iron- 1 mg-200 mg Cap PNV 67-iron Yes [id number] 1{tbl} Take 1 [facility] ps-folate 8-09 tablet by ity o f no.1-dha 00:00: mouth [place] (VITAFOL 00 daily. Medical ULTRA) 29 Branch mg iron- 1 mg-200 mg Cap PNV 67-iron 2022-0 Yes [id number] 1{tbl} Take 1 [facility] ps-folate 8-09 tablet by ity o f no.1-dha 00:00: mouth [place] (VITAFOL 00 daily. Medical ULTRA) 29 Branch mg iron- 1 mg-200 mg Cap PNV 67-iron 2022-0 Yes [id number] 1{tbl} Take 1 [facility] ps-folate 8-09 tablet by ity o f no.1-dha 00:00: mouth [place] (VITAFOL 00 daily. Medical ULTRA) 29 Branch mg iron- 1 mg-200 mg Cap PNV 67-iron 2022-0 Yes [id number] 1{tbl} Take 1 [facility] ps-folate 8-09 tablet by ity o f no.1-dha 00:00: mouth [place] (VITAFOL 00 daily. Medical ULTRA) 29 Branch mg iron- 1 mg-200 mg Cap PNV 67-iron 2022-0 Yes [id number] 1{tbl} Take 1 [facility] ps-folate 8-09 tablet by ity o f no.1-dha 00:00: mouth [place] (VITAFOL 00 daily. Medical ULTRA) 29 Branch mg iron- 1 mg-200 mg Cap PNV 67-iron 2022-0 Yes [id number] 1{tbl} Take 1 [facility] ps-folate 8-09 tablet by ity o f no.1-dha 00:00: mouth [place] (VITAFOL 00 daily. Medical ULTRA) 29 Branch mg iron- 1 mg-200 mg Cap PNV 67-iron 2022-0 Yes [id number] 1{tbl} Take 1 [facility] ps-folate 8-09 tablet by ity o f no.1-dha 00:00: mouth [place] (VITAFOL 00 daily. Medical ULTRA) 29 Branch mg iron- 1 mg-200 mg Cap PNV 67-iron 2022-0 Yes [id number] 1{tbl} Take 1 [facility] ps-folate 8-09 tablet by ity o f no.1-dha 00:00: mouth [place] (VITAFOL 00 daily. Medical ULTRA) 29 Branch mg iron- 1 mg-200 mg Cap PNV 67-iron 2022-0 Yes [id number] 1{tbl} Take 1 [facility] ps-folate 8-09 tablet by ity o f no.1-dha 00:00: mouth [place] (VITAFOL 00 daily. Medical ULTRA) 29 Branch mg iron- 1 mg-200 mg Cap PNV 67-iron 2022-0 Yes [id number] 1{tbl} Take 1 [facility] ps-folate 8-09 tablet by ity o f no.1-dha 00:00: mouth [place] (VITAFOL 00 daily. Medical ULTRA) 29 Branch mg iron- 1 mg-200 mg Cap PNV 67-iron 2022-0 Yes [id number] 1{tbl} Take 1 [facility] ps-folate 8-09 tablet by ity o f no.1-dha 00:00: mouth [place] (VITAFOL 00 daily. Medical ULTRA) 29 Branch mg iron- 1 mg-200 mg Cap PNV 67-iron 2022-0 Yes [id number] 1{tbl} Take 1 [facility] ps-folate 8-09 tablet by ity o f no.1-dha 00:00: mouth [place] (VITAFOL 00 daily. Medical ULTRA) 29 Branch mg iron- 1 mg-200 mg Cap PNV 67-iron 2022-0 Yes [id number] 1{tbl} Take 1 [facility] ps-folate 8-09 tablet by ity o f no.1-dha 00:00: mouth [place] (VITAFOL 00 daily. Medical ULTRA) 29 Branch mg iron- 1 mg-200 mg Cap PNV 67-iron 2022-0 Yes [id number] 1{tbl} Take 1 [facility] ps-folate 8-09 tablet by ity o f no.1-dha 00:00: mouth [place] (VITAFOL 00 daily. Medical ULTRA) 29 Branch mg iron- 1 mg-200 mg Cap PNV 67-iron 2022-0 Yes [id number] 1{tbl} Take 1 [facility] ps-folate 8-09 tablet by ity o f no.1-dha 00:00: mouth [place] (VITAFOL 00 daily. Medical ULTRA) 29 Branch mg iron- 1 mg-200 mg Cap PNV 67-iron 2022-0 Yes [id number] 1{tbl} Take 1 [facility] ps-folate 8-09 tablet by ity o f no.1-dha 00:00: mouth [place] (VITAFOL 00 daily. Medical ULTRA) 29 Branch mg iron- 1 mg-200 mg Cap PNV 67-iron 2022-0 Yes [id number] 1{tbl} Take 1 [facility] ps-folate 8-09 tablet by ity o f no.1-dha 00:00: mouth [place] (VITAFOL 00 daily. Medical ULTRA) 29 Branch mg iron- 1 mg-200 mg Cap PNV 67-iron 2022-0 Yes [id number] 1{tbl} Take 1 [facility] ps-folate 8-09 tablet by ity o f no.1-dha 00:00: mouth [place] (VITAFOL 00 daily. Medical ULTRA) 29 Branch mg iron- 1 mg-200 mg Cap PNV 67-iron 2022-0 Yes [id number] 1{tbl} Take 1 [facility] ps-folate 8-09 tablet by ity o f no.1-dha 00:00: mouth [place] (VITAFOL 00 daily. Medical ULTRA) 29 Branch mg iron- 1 mg-200 mg Cap PNV 67-iron 2022-0 Yes [id number] 1{tbl} Take 1 [facility] ps-folate 8-09 tablet by ity o f no.1-dha 00:00: mouth [place] (VITAFOL 00 daily. Medical ULTRA) 29 Branch mg iron- 1 mg-200 mg Cap PNV 67-iron 2022-0 Yes [id number] 1{tbl} Take 1 [facility] ps-folate 8-09 tablet by ity o f no.1-dha 00:00: mouth [place] (VITAFOL 00 daily. Medical ULTRA) 29 Branch mg iron- 1 mg-200 mg Cap PNV 67-iron 2022-0 Yes [id number] 1{tbl} Take 1 [facility] ps-folate 8-09 tablet by ity o f no.1-dha 00:00: mouth [place] (VITAFOL 00 daily. Medical ULTRA) 29 Branch mg iron- 1 mg-200 mg Cap PNV 67-iron 2022-0 Yes [id number] 1{tbl} Take 1 [facility] ps-folate 8-09 tablet by ity o f no.1-dha 00:00: mouth [place] (VITAFOL 00 daily. Medical ULTRA) 29 Branch mg iron- 1 mg-200 mg Cap PNV 67-iron 2022-0 Yes [id number] 1{tbl} Take 1 [facility] ps-folate 8-09 tablet by ity o f no.1-dha 00:00: mouth [place] (VITAFOL 00 daily. Medical ULTRA) 29 Branch mg iron- 1 mg-200 mg Cap PNV 67-iron 2022-0 Yes [id number] 1{tbl} Take 1 [facility] ps-folate 8-09 tablet by ity o f no.1-dha 00:00: mouth [place] (VITAFOL 00 daily. Medical ULTRA) 29 Branch mg iron- 1 mg-200 mg Cap PNV 67-iron 2022-0 Yes [id number] 1{tbl} Take 1 [facility] ps-folate 8-09 tablet by ity o f no.1-dha 00:00: mouth [place] (VITAFOL 00 daily. Medical ULTRA) 29 Branch mg iron- 1 mg-200 mg Cap PNV 67-iron 2022-0 Yes [id number] 1{tbl} Take 1 [facility] ps-folate 8-09 tablet by ity o f no.1-dha 00:00: mouth [place] (VITAFOL 00 daily. Medical ULTRA) 29 Branch mg iron- 1 mg-200 mg Cap PNV 67-iron 2-0 Yes [id number] 1{tbl} Take 1 [facility] ps-folate 8-09 tablet by ity o f no.1-dha 00:00: mouth [place] (VITAFOL 00 daily. Medical ULTRA) 29 Branch mg iron- 1 mg-200 mg Cap PNV 67-iron 2-0 Yes [id number] 1{tbl} Take 1 [facility] ps-folate 8-09 tablet by ity o f no.1-dha 00:00: mouth [place] (VITAFOL 00 daily. Medical ULTRA) 29 Branch mg iron- 1 mg-200 mg Cap PNV 67-iron 2-0 2023- No [id number] 1{tbl} Take 1 [facility] ps-folate 8-09 02-21 tablet by ity of no.1-dha 00:00: 00:00 mouth [place] (VITAFOL 00 :00 daily. Medical ULTRA) 29 Branch mg iron- 1 mg-200 mg Cap terconazole 2-0 2- No [id number] 80mg Insert 1 [facility] 80 mg 6-30 12-28 9107 Suppositor ity of vaginal 00:00: 04:59 y into [place] suppository 00 :00 vagina at [facility] bedtime Branch for 3 days. Prenat Vit 2022-0 Yes [id number] 1{tbl} Take 1 [facility] Comb.10-Iro 6-28 tablet by ity of n-FA-DHA 00:00: mouth [place] (VITAFOL-OB 00 daily. Medica l +DHA) Branch 65-1-250 mg combo pack Prenat Vit Yes [id number] 1{tbl} Take 1 [facility] Comb.10-Iro 6-28 tablet by ity of n-FA-DHA 00:00: mouth [place] (VITAFOL-OB 00 daily. Medica l +DHA) Branch 65-1-250 mg combo pack Prenat Vit Yes [id number] 1{tbl} Take 1 [facility] Comb.10-Iro 6-28 tablet by ity of n-FA-DHA 00:00: mouth [place] (VITAFOL-OB 00 daily. Medica l +DHA) Branch 65-1-250 mg combo pack Prenat Vit Yes [id number] 1{tbl} Take 1 [facility] Comb.10-Iro 6-28 tablet by ity of n-FA-DHA 00:00: mouth [place] (VITAFOL-OB 00 daily. Medica l +DHA) Branch 65-1-250 mg combo pack Prenat Vit Yes [id number] 1{tbl} Take 1 [facility] Comb.10-Iro 6-28 tablet by ity of n-FA-DHA 00:00: mouth [place] (VITAFOL-OB 00 daily. Medica l +DHA) Branch 65-1-250 mg combo pack Prenat Vit 0 2021- No [id number] 1{tbl} Take 1 [facility] Comb.10-Iro 6-28 08-09 tablet by it y of n-FA-DHA 00:00: 00:00 mouth [place] (VITAFOL-OB 00 :00 daily. Medica l +DHA) Branch 65-1-250 mg combo pack ibuprofen 2020-06 Yes [id number] 600mg Take 1 [facility] 600 mg 2-26 tablet by ity of tablet 00:00: mouth [place] 00 every 6 Medical (six) Branch hours as needed for Pain (scale 1-3) or Pain (scale 4-6). docusate 2020-06 Yes [id number] 240mg Take 1 U nivers calcium 240 2-26 capsule by it y of mg capsule 00:00: mouth [place] 00 daily. Medical Branch ferrous 2020-06 Yes [id number] 325mg Take 1 Un jag sulfate 325 2-26 tablet by ity of mg (65 mg 00:00: mouth 3 [place] iron) EC 00 (three) Medical tablet times Branch daily with meals. ibuprofen 2020-06 Yes [id number] 600mg Take 1 [facility] 600 mg 2-26 tablet by ity of tablet 00:00: mouth [place] 00 every 6 Medical (six) Branch hours as needed for Pain (scale 1-3) or Pain (scale 4-6). docusate 2020-06 Yes [id number] 240mg Take 1 U nivers calcium 240 2-26 capsule by it y of mg capsule 00:00: mouth [place] 00 daily. Medical Branch ferrous 2020-06 Yes [id number] 325mg Take 1 Un jag sulfate 325 2-26 tablet by ity of mg (65 mg 00:00: mouth 3 [place] iron) EC 00 (three) Medical tablet times Branch daily with meals. ibuprofen 2020-06 Yes [id number] 600mg Take 1 [facility] 600 mg 2-26 tablet by ity of tablet 00:00: mouth [place] 00 every 6 Medical (six) Branch hours as needed for Pain (scale 1-3) or Pain (scale 4-6). docusate 2020-06 Yes [id number] 240mg Take 1 U nivers calcium 240 2-26 capsule by it y of mg capsule 00:00: mouth [place] 00 daily. Medical Branch ferrous 2020-06 Yes [id number] 325mg Take 1 Un jag sulfate 325 2-26 tablet by ity of mg (65 mg 00:00: mouth 3 [place] iron) EC 00 (three) Medical tablet times Branch daily with meals. docusate 2020-06 Yes [id number] 240mg Take 1 U nivers calcium 240 2-25 capsule by it y of mg capsule 00:00: mouth once [place] 00 daily as Medical needed for Branch Constipati on. ferrous 2020-06 Yes [id number] 325mg Take 1 Un jag sulfate 325 2-25 tablet by ity of mg (65 mg 00:00: mouth 2 [place] iron) 00 (two) Medical tablet times Branch daily. HYDROcodone 2020-06 Yes [id number] 1{tbl} Take 1 Un jag -acetaminop 2-25 tablet by ity of hen 5-325 00:00: mouth [place] mg tablet 00 every 6 Medical (six) Branch hours as needed (Pain scale above 4). Do not exceed 3 grams of acetaminop hen in 24 hours. Indication s: acute pain ibuprofen 2020-06 Yes [id number] 600mg Take 1 [facility] 600 mg 2-25 tablet by ity of tablet 00:00: mouth [place] 00 every 6 Medical (six) Branch hours as needed (Pain). Take with food or milk. 2020-06 Yes [id number] 1{tbl} Take 1 [facility] vitamin 2-25 tablet by ity of w/FA tablet 00:00: mouth [place] 00 daily. Medical Branch docusate 2020-06 Yes [id number] 240mg Take 1 U nivers calcium 240 2-25 capsule by it y of mg capsule 00:00: mouth once [place] 00 daily as Medical needed for Branch Constipati on. ferrous 2020-06 Yes [id number] 325mg Take 1 Un jag sulfate 325 2-25 tablet by ity of mg (65 mg 00:00: mouth 2 [place] iron) 00 (two) Medical tablet times Branch daily. HYDROcodone 2020-06 Yes [id number] 1{tbl} Take 1 Un jag -acetaminop 2-25 tablet by ity of hen 5-325 00:00: mouth [place] mg tablet 00 every 6 Medical (six) Branch hours as needed (Pain scale above 4). Do not exceed 3 grams of acetaminop hen in 24 hours. Indication s: acute pain ibuprofen 2020-06 Yes [id number] 600mg Take 1 [facility] 600 mg 2-25 tablet by ity of tablet 00:00: mouth [place] 00 every 6 Medical (six) Branch hours as needed (Pain). Take with food or milk. 2020-06 Yes [id number] 1{tbl} Take 1 [facility] vitamin 2-25 tablet by ity of w/FA tablet 00:00: mouth [place] 00 daily. Medical Branch docusate 2020-06 Yes [id number] 240mg Take 1 U nivers calcium 240 2-25 capsule by it y of mg capsule 00:00: mouth once [place] 00 daily as Medical needed for Branch Constipati on. ferrous 2020-06 Yes [id number] 325mg Take 1 Un jag sulfate 325 2-25 tablet by ity of mg (65 mg 00:00: mouth 2 [place] iron) 00 (two) Medical tablet times Branch daily. HYDROcodone 2020-06 Yes [id number] 1{tbl} Take 1 Un jag -acetaminop 2-25 tablet by ity of hen 5-325 00:00: mouth [place] mg tablet 00 every 6 Medical (six) Branch hours as needed (Pain scale above 4). Do not exceed 3 grams of acetaminop hen in 24 hours. Indication s: acute pain ibuprofen 2020-06 Yes [id number] 600mg Take 1 [facility] 600 mg 2-25 tablet by ity of tablet 00:00: mouth [place] 00 every 6 Medical (six) Branch hours as needed (Pain). Take with food or milk. 2020-06 Yes [id number] 1{tbl} Take 1 [facility] vitamin 2-25 tablet by ity of w/FA tablet 00:00: mouth [place] 00 daily. Medical Branch docusate 2020-06 Yes [id number] 240mg Take 1 U nivers calcium 240 2-25 capsule by it y of mg capsule 00:00: mouth once [place] 00 daily as Medical needed for Branch Constipati on. ferrous 2020-06 Yes [id number] 325mg Take 1 Un jag sulfate 325 2-25 tablet by ity of mg (65 mg 00:00: mouth 2 [place] iron) 00 (two) Medical tablet times Branch daily. HYDROcodone 2020-06 Yes [id number] 1{tbl} Take 1 Un jag -acetaminop 2-25 tablet by ity of hen 5-325 00:00: mouth [place] mg tablet 00 every 6 Medical (six) Branch hours as needed (Pain scale above 4). Do not exceed 3 grams of acetaminop hen in 24 hours. Indication s: acute pain ibuprofen 2020-06 Yes [id number] 600mg Take 1 [facility] 600 mg 2-25 tablet by ity of tablet 00:00: mouth [place] 00 every 6 Medical (six) Branch hours as needed (Pain). Take with food or milk. 2020-06 Yes [id number] 1{tbl} Take 1 [facility] vitamin 2-25 tablet by ity of w/FA tablet 00:00: mouth [place] 00 daily. Medical Branch 2020-06- No Take by Unive rs 25/iron 2-24 12-24 mouth. ity of fum/folic/d 08:29: 00:00 [place] knight 56 :00 Medical (-1 Branch ORAL) 2020-06- Take by Unive rs 25/iron 2-24 12-24 mouth. ity of fum/folic/d 08:29: 00:00 [place] knight 56 :00 Medical (-1 Branch ORAL) docusate 2020-06- No [id number] 240mg Take 1 [facility] calcium 240 2-24 12-25 capsule by i ty of mg capsule 00:00: 00:00 mouth once [place] 00 :00 daily as Medical needed for Branch Constipati on. 2020-06- No [id number] 1{tbl} Take 1 [facility] vitamin 2-24 12-25 tablet by ity of w/FA tablet 00:00: 00:00 [place] 00 :00 daily. Medical Branch ferrous 2020-06- No [id number] 325mg Take 1 U nivers sulfate 325 2-24 12-25 tablet by it y of mg (65 mg 00:00: 00:00 mouth 2 [place] iron) 00 :00 (two) Medical tablet times Branch daily. ibuprofen 2020-06- No [id number] 600mg Take 1 Univers 600 mg 2-24 12-25 tablet by ity of tablet 00:00: 00:00 mouth [place] 00 :00 every 6 Medical (six) Branch hours as needed (Pain). Take with food or milk. HYDROcodone 2020-06- No [id number] 1{tbl} Take 1 U nivers -acetaminop 2-24 12-25 tablet by it y of hen 5-325 00:00: 00:00 mouth [place] mg tablet 00 :00 every 6 Medical (six) Branch hours as needed (Pain scale above 4) for up to 7 days. Do not exceed 3 grams of acetaminop hen in 24 hours. Indication s: acute pain morpHINE 30 2020-06- No Unive rs mg/30 mL 2- 12-24 ity of (fixed 15:15: 21:37 [place] dose) [employer] 00 :04 Medical injection Branch foLIC acid 2020-06- No 1mg 1 mg, Unive rs (FOLATE) 2- 12-24 Oral, ity of tablet 1 mg 15:00: 21:37 DAILY, [place] 00 :04 First dose Medical on [place] Branch 06/18/21 at 0900, Until Discontinu ed, Routine morpHINE 2020-06 Slow IV Unive rs injection 08-19 Push, ity of 14:09: 21:37 SEE-INSTRU [place] 43 [facility] Branch on [facility] 06/18/21 at 0809, Until Tue06/19/21 at 1537, Routine naloxone 2020-06- No .1mg 0.1 mg, Unive rs (NARCAN) 08-19 Slow IV ity of injection 14:09: 21:37 Push, [place] 0.1 mg 38 :04 SEE-INSTRU Medical [facility], Branch Starting on [facility] 06/18/21 at 0809, Until Tue06/19/21 at 1537, Routine ferrous 2020-06 No 325mg 325 mg, Unive rs sulfate 08-19 Oral, TID ity of tablet 325 14:00: 21:37 MEALS, [place] mg 00 :04 First dose Medical on [facility] 06/18/21 at 0800, Until Discontinu ed, Routine ascorbic 2020-06- No 500mg 500 mg, Univ ers acid 08-19 Oral, TID, ity of (vitamin C) 14:00: 21:37 First dose [place] (VITAMIN C) 00 :04 on [facility] l tablet 500 06/18/21 Branc h mg at 0800, Until Discontinu ed, Routine ibuprofen 2020-06 No 600mg 600 mg, Uni vers (IBU) 08-19 Oral, Q6H, ity of tablet 600 12:00: 21:37 First dose [place] mg 00 :04 on [facility] 06/18/21 Branch at 0600, Until Discontinu ed, Routine rho(D) 2020-06 No 300ug 300 mcg, Unive rs immune 08-19 Intramuscu ity of globulin 08:44: 21:37 lar, ONCE, [place] (RHOGAM) 56 :04 For 1 Medical syringe 300 dose, Branch [facility], Routine HYDROcodone 2020-06- No 1{tbl} [Order 1 Univers -acetaminop 08-19 Start] ity o f hen (NORCO 08:44: 21:37 Name: [place]nee 5) 5-325 mg 51 :04 HYDROcodon Me dical tablet 1 e-acetamin Branc h tablet ophen (NORCO 5) 5-325 mg tablet 1 tablet Signed Summary: 1 tablet, Oral, Q6HPRN, Starting on [place] 06/18/21 at 0244, Until Tue06/19/21 at 1537, Routine, Pain (scale 4-6) [Order 1 End] [Order 2 Start] Name: HYDROcodon e-acetamin ophen (NORCO) 10-325 mg tablet 1 tablet Signed Summary: 1 tablet, Oral, Q6HPRN, Starting on [place] 06/18/21 at 0244, Until Tue06/19/21 at 1537, Routine, Pain (scale 7-10) [Order 2 End] diphenhydrA 2020-06- No 25mg 25 mg, IV Univers MINE-0.9 % 08-19 Piggyback, it y of sod.chlr 08:44: 21:37 Administer [place] (BENADRYL) 51 :04 over 30 Medica l 25 mg/50 mL Minutes, Bran ch piggyback Q6HPRN, 1 25 mg dose, Starting on [place] 06/18/21 at 0244, Until Tue06/19/21 at 1537, Routine, Itching diphenhydrA 2020-06 No 25mg 25 mg, Uni vers MINE 08-19 Oral, ity of (BENADRYL) 08:44: 21:37 Q6HPRN, [place] tablet 25 51 :04 Starting Medica l mg on [place] Branch 06/18/21 at 0244, Until Tue06/19/21 at 1537, Routine, Sleep, Itching ondansetron 2020-06- No 4mg 4 mg, Slow Univers (ZOFRAN 08-19 IV Push, ity of (PF)) 08:44: 21:37 Q8HPRN, [place] injection 4 51 :04 Starting Medi stacy mg on [place] Branch 06/18/21 at 0244, Until Tue06/19/21 at 1537, Routine, Nausea and Vomiting (N/V) bisacodyL 2020-06- No 10mg 10 mg, Unive rs (DULCOLAX) 08-19 Rectal, ity o f suppository 08:44: 21:37 QDAILYPRN, [place] 10 mg 51 :04 Starting Medical on [place] Branch 06/18/21 at 0244, Until Tue06/19/21 at 1537, Routine, Constipati on simethicone 2020-06- No 160mg 160 mg, U nivers (GAS RELIEF 08-19 Oral, ity of (SIMETHICON 08:44: 21:37 PC+HSPRN, [place] E)) 51 :04 Starting Medical chewable on [place] Branch tablet 160 06/18/21 mg at 0244, Until Tue06/19/21 at 1537, Routine, Gas docusate 2020-06- No 240mg 240 mg, Univ ers calcium 08-19 Oral, ity of (SURFAK) 08:44: 21:37 QDAILYPRN, [place] capsule 240 51 :04 Starting Medi stacy mg on [place] Branch 06/18/21 at 0244, Until Tue06/19/21 at 1537, Routine, Constipati on magnesium 2020-06- No 30mL 30 mL, Unive rs hydroxide 08-19 Oral, ity of (MILK OF 08:44: 21:37 QDAILYPRN, [place] MAGNESIA) 51 :04 Starting Medica l 400 mg/5 mL on [place] Branch suspension 06/18/21 30 mL at 0244, Until Tue06/19/21 at 1537, Routine, Constipati on FENTanyl PF 2020-06- No Intravenou Univers (SUBLIMAZE 08-19 s, ONCE ity o f (PF)) 05:20: 05:44 INTRA [place] injection 00 :17 PROCEDURE, Medi stacy Starting Branch on Tue06/17/21 at 2320, Until Tue06/17/21 at 2344, Routine, Intra-op ondansetron 2020-06- No Slow IV Un jag (ZOFRAN 08-19 Push, ONCE ity o f (PF)) 05:17: 05:44 INTRA [place] injection 00 :17 PROCEDURE, Medi stacy Starting Branch on Tue06/17/21 at 2317, Until Tue06/17/21 at 2344, Routine, Intra-op carboprost 2020-06- No Intramuscu Univers (HEMABATE) 08-19 lar, ONCE ity of injection 05:14: 05:44 INTRA [place] 00 :17 PROCEDURE, Medical Starting Branch on 06/17/21 at 2314, Until Tue06/17/21 at 2344, Routine, Intra-op dexamethaso 2020-06- No IV Push, U nivers ne 08-19 ONCE INTRA ity of (DECADRON 05:10: 05:44 PROCEDURE, [place] PHOSPHATE) 00 :17 Starting Medic al injection on Wed Branch 06/17/21 at 2310, Until Tue06/17/21 at 2344, Routine, Intra-op methylergon 2020-06- No Intramuscu Univers ovine 08-19 lar, ONCE ity of (METHERGINE 05:10: 05:44 INTRA [place] ) injection 00 :17 PROCEDURE, Me dical Starting Branch on Tue06/17/21 at 2310, Until Tue06/17/21 at 2344, Routine, Intra-op LR 1000 mL 2020-06- No IV Univer s + oxytocin 08-19 Infusion, ity of 40 units 40 05:08: 05:44 CONTINUOUS [place] unit/ 1,000 00 :17 PRN, Medical mL IV Starting Branch Solution on 06/17/21 at 2308, Until Tue06/17/21 at 2344, Routine, Intra-op succinylcho 2020-06- No IV Push, U nivers line 08-19 ONCE INTRA ity of (QUELICIN) 05:03: 05:44 PROCEDURE, [place] injection 00 :17 Starting Medica l on Wed Branch 06/17/21 at 2303, Until Tue06/17/21 at 2344, Routine, Intra-op propofoL IV 2020-06- No IV Unive rs infusion 08-19 Infusion, ity o f 05:03: 05:44 ONCE INTRA [place] 00 :17 PROCEDURE, Medical Starting Branch on 06/17/21 at 2303, Until Tue06/17/21 at 2344, Routine, Intra-op azithromyci 2020-06- No IV Unive rs n 08-19 Piggyback, ity of (ZITHROMAX) 04:55: 05:44 CONTINUOUS [place] 500 mg in 00 :17 PRN, Medical NaCl 0.9% Starting Branch (NS) 250 mL on Tue IV 06/17/21 piggyback at 2255, Until Tue06/17/21 at 2344, Administer over 60 Minutes, 250 mL, Intra-op FENTanyl PF 2020-06- No Epidural, Univers (SUBLIMAZE 08-19 ONCE INTRA it y of (PF)) 04:54: 05:44 PROCEDURE, [place] injection 00 :17 Starting Medica l on Tue Branch 06/17/21 at 2254, Until Tue06/17/21 at 2344, Routine, Intra-op chloroproca 2020-06- No Epidural, Univers ine 08-19 ONCE INTRA ity of (NESACAINE- 04:52: 05:44 PROCEDURE, [place] MPF) 30 00 :17 Starting Medical mg/mL (3 %) on Tue Branch injection 06/17/21 at 2252, Until Tue06/17/21 at 2344, Routine, Intra-op lactated 2020-06- No IV Univers ringers IV 08-19 Infusion, ity of infusion 04:20: 05:44 CONTINUOUS [place] 00 :17 PRN, Medical Starting Branch on Tue06/17/21 at 2220, Until Tue06/17/21 at 2344, Routine, Intra-op lidocaine-e 2020-06- No Epidural, Univers pinephrine 08-19 ONCE INTRA it y of (XYLOCAINE 04:15: 05:44 PROCEDURE, [place] W/EPINEPHRI 00 :17 Starting Medi stacy NE) 2 on Tue Branch %-1:200,000 06/17/21 injection at 2215, Until Tue06/17/21 at 2344, Routine, Intra-op fentaNYL 2 2020-06- No Intra-op Un jag mcg/mL + 08-17 ity of bupivacaine 19:49: 05:44 [place] 0.1% in NS 00 :17 Medical 250 mL Branch epidural bag lidocaine-e 2020-06- No Epidural, Univers pinephrine 2-21 12-23 ONCE INTRA it y of (XYLOCAINE 19:46: 05:44 PROCEDURE, [place] W/EPINEPHRI 00 :17 Starting Medi stacy NE) 1.5 on Tue Branch %-1:200,000 06/16/21 injection at 1346, Until Discontinu ed, Routine, Intra-op lidocaine 2020-06- No Infiltrati U nivers 1% 08-1723 on, ONCE ity of (XYLOCAINE) 19:43: 05:44 INTRA [place] 100 mg/10 00 :17 PROCEDURE, Medi stacy mL (1 %) Starting Branch injection on Tue06/16/21 at 1343, Until Discontinu ed, Routine, Intra-op Iron Fum & 2020-06- No [id number] 1{capsu Take 1 Univers P-FA-Vit B 0-05 12-24 le} capsule by it y of & C No.9 00:00: 00:00 mouth [place] (INTEGRA 00 :00 daily. Medical PLUS) 125 Branch mg iron- 1 mg Cap Iron Fum & 2020-06- No [id number] 1{capsu Take 1 Univers P-FA-Vit B 0-05 12-24 le} capsule by it y of & C No.9 00:00: 00:00 mouth [place] (INTEGRA 00 :00 daily. Medical PLUS) 125 Branch mg iron- 1 mg Cap Immunizations Ordered Immunization Filled Immunization Date Status Commen ts Source Name Name TDAP 2022-05-31 Completed University of 00:00:[address] [facility] TDAP 2022-05-31 Completed University of 00:00:[address] [facility] TDAP 2022-05-31 Completed University of 00:00:[address] [facility] TDAP 2022-05-31 Completed University of 00:00:[address] [facility] TDAP 2022-05-31 Completed University of 00:00:[address] [facility] TDAP 2022-05-31 Completed [facility] 00:00:[address] [facility] TDAP 2022-05-31 Completed [facility] 00[facility]00:[address] [facility] TDAP 2022-05-31 Completed [facility] 00:00:[address] [facility] TDAP 2022-05-31 Completed [facility] 00[facility]00:[address] [facility] TDAP 2022-05-31 Completed [facility] 00[facility]00:[address] [facility] TDAP 2022-05-31 Completed [facility] 00[facility]00[facility] [facility] [facility] 2022-05-31 Completed [facility] 00:00:[address] [facility] TDAP 2022-05-31 Completed [facility] 00:00:[address] [facility] TDAP 2022-05-31 Completed [facility] 00:00:[address] [facility] TDAP 2022-05-31 Completed [facility] 00:00:[address] [facility] TDAP 2022-05-31 Completed [facility] 00:00:[address] [facility] TDAP 2022-05-31 Completed [facility] 00[facility]00:[address] [facility] TDAP 2022-05-31 Completed [facility] 00[facility]00:[address] [facility] TDAP 2022-05-31 Completed [facility] 00:00:[address] [facility] TDAP 2022-05-31 Completed [facility] 00:00:[address] [facility] TDAP 2022-05-31 Completed [facility] 00:00:[address] [facility] TDAP 2022-05-31 Completed [facility] 00:00:[address] [facility] Influenza Virus 2022-05-03 Completed [facility]it y [facility] Vaccine [facility], 00:00:00 [place] [facility] Preserv and ABX Free Bran ch 6 MO-64 YRS Influenza Virus 2022-05-03 Completed [facility], 00:00:00 [place] [facility] Preserv and ABX Free Bran ch 6 MO-64 YRS Influenza Virus 2022-05-03 Completed [facility], 00:00:00 [place] [facility] Preserv and ABX Free Bran ch 6 MO-64 YRS Influenza Virus 2022-05-03 Completed [facility], 00:00:00 [place] [facility] Preserv and ABX Free Bran ch 6 MO-64 YRS Influenza Virus 2022-05-03 Completed [facility], 00:00:00 [place] [facility] Preserv and ABX Free Bran ch 6 MO-64 YRS Influenza Virus 2022-05-03 Completed [facility], 00:00:00 [place] [facility] Preserv and ABX Free Bran ch 6 MO-64 YRS Influenza Virus 2022-05-03 Completed [facility], 00:00:00 [place] [facility] Preserv and ABX Free Bran ch 6 MO-64 YRS Influenza Virus 2022-05-03 Completed [facility], 00:00:00 [place] [facility] Preserv and ABX Free Bran ch 6 MO-64 YRS Influenza Virus 2022-05-03 Completed [facility], 00:00:00 [place] [facility] Preserv and ABX Free Bran ch 6 MO-64 YRS Influenza Virus 2022-05-03 Completed [facility], 00:00:00 [place] [facility] Preserv and ABX Free Bran ch 6 MO-64 YRS Influenza Virus 2022-05-03 Completed [facility], 00:00:00 [place] [facility] Preserv and ABX Free Bran ch 6 MO-64 YRS Influenza Virus 2022-05-03 Completed [facility], 00:00:00 [place] [facility] Preserv and ABX Free Bran ch 6 MO-64 YRS Influenza Virus 2022-05-03 Completed [facility], 00:00:00 [place] [facility] Preserv and ABX Free Bran ch 6 MO-64 YRS Influenza Virus 2022-05-03 Completed [facility], 00:00:00 [place] [facility] Preserv and ABX Free Bran ch 6 MO-64 YRS Influenza Virus 2022-05-03 Completed [facility], 00:00:00 [place] [facility] Preserv and ABX Free Bran ch 6 MO-64 YRS Influenza Virus 2022-05-03 Completed [facility], 00:00:00 [place] [facility] Preserv and ABX Free Bran ch 6 MO-64 YRS Influenza Virus 2022-05-03 Completed [facility], 00:00:00 [place] [facility] Preserv and ABX Free Bran ch 6 MO-64 YRS Influenza Virus 2022-05-03 Completed [facility], 00:00:00 [place] [facility] Preserv and ABX Free Bran ch 6 MO-64 YRS Influenza Virus 2022-05-03 Completed [facility], 00:00:00 [place] [facility] Preserv and ABX Free Bran ch 6 MO-64 YRS Influenza Virus 2022-05-03 Completed [facility], 00:00:00 [place] [facility] Preserv and ABX Free Bran ch 6 MO-64 YRS Influenza Virus 2022-05-03 Completed [facility], 00:00:00 [place] [facility] Preserv and ABX Free Bran ch 6 MO-64 YRS Influenza Virus 2022-05-03 Completed [facility], 00:00:00 [place] [facility] Preserv and ABX Free Bran ch 6 MO-64 YRS Influenza Virus 2022-05-03 Completed [facility], 00:00:00 [place] [facility] Preserv and ABX Free Bran ch 6 MO-64 YRS Influenza Virus 2022-05-03 Completed [facility], 00:00:00 [place] [facility] Preserv and ABX Free Bran ch 6 MO-64 YRS Influenza Virus 2022-05-03 Completed [facility], 00:00:00 [place] [facility] Preserv and ABX Free Bran ch 6 MO-64 YRS Influenza Virus 2022-05-03 Completed [facility], 00:00:00 [place] [facility] Preserv and ABX Free Bran ch 6 MO-64 YRS Influenza Virus 2021-04-20 Completed [facility], 00:00:00 [place] [facility] Preserv and ABX Free Bran ch 6 MO-64 YRS TDAP 2021-04-20 Completed [facility] 00:00:[address] [facility] Influenza Virus 2021-04-20 Completed [facility] IM, 00:00:00 [place] [facility] Preserv and ABX Free Bran ch 6 MO-64 YRS TDAP 2021-04-20 Completed [facility] 00:00:[address] [facility] Influenza Virus 2021-04-20 Completed [facility] IM, 00:00:00 [place] [facility] Preserv and ABX Free Bran ch 6 MO-64 YRS TDAP 2021-04-20 Completed [facility] 00:00:[address] [facility] Influenza Virus 2021-04-20 Completed [facility] IM, 00:00:00 [place] [facility] Preserv and ABX Free Bran ch 6 MO-64 YRS TDAP 2021-04-20 Completed [facility] 00:00:[address] [facility] Influenza Virus 2021-04-20 Completed [facility], 00:00:00 [place] [facility] Preserv and ABX Free Bran ch 6 MO-64 YRS TDAP 2021-04-20 Completed [facility] 00:00:[address] [facility] Influenza Virus 2021-04-20 Completed [facility], 00:00:00 [place] [facility] Preserv and ABX Free Bran ch 6 MO-64 YRS TDAP 2021-04-20 Completed [facility] 00:00:[address] [facility] Influenza Virus 2021-04-20 Completed [facility], 00:00:00 [place] [facility] Preserv and ABX Free Bran ch 6 MO-64 YRS TDAP 2021-04-20 Completed [facility] 00:00:[address] [facility] Influenza Virus 2021-04-20 Completed [facility], 00:00:00 [place] [facility] Preserv and ABX Free Bran ch 6 MO-64 YRS TDAP 2021-04-20 Completed [facility] 00:00:[address] [facility] Influenza Virus 2021-04-20 Completed [facility], 00:00:00 [place] [facility] Preserv and ABX Free Bran ch 6 MO-64 YRS TDAP 2021-04-20 Completed [facility] 00:00:[address] [facility] Influenza Virus 2021-04-20 Completed [facility], 00:00:00 [place] [facility] Preserv and ABX Free Bran ch 6 MO-64 YRS TDAP 2021-04-20 Com[facility] 00:00:[address] [facility] Influenza Virus 2021-04-20 Completed [facility] Vacc[facility] IM, 00:00:00 [place] [facility] Preserv and ABX Free Bran ch 6 MO-64 YRS Influenza Virus 2021-04-20 Completed [facility], 00:00:00 [place] [facility] Preserv and ABX Free Bran ch 6 MO-64 YRS TDAP 2021-04-20 Completed [facility] 00:00:[address] [facility] Influenza Virus 2021-04-20 Completed [facility], 00:00:00 [place] [facility] Preserv and ABX Free Bran ch 6 MO-64 YRS TDAP 2021-04-20 Completed [facility] 00:00:[address] [facility] Influenza Virus 2021-04-20 Completed [facility], 00:00:00 [place] [facility] Preserv and ABX Free Bran ch 6 MO-64 YRS TDAP 2021-04-20 Completed [facility] 00:00:[address] [facility] Influenza Virus 2021-04-20 Completed [facility], 00:00:00 [place] [facility] Preserv and ABX Free Bran ch 6 MO-64 YRS TDAP 2021-04-20 Completed [facility] 00:00:[address] [facility] Influenza Virus 2021-04-20 Completed [facility] IM, 00:00:00 [place] [facility] Preserv and ABX Free Bran ch 6 MO-64 YRS TDAP 2021-04-20 Completed [facility] 00:00:[address] [facility] Influenza Virus 2021-04-20 Completed [facility] IM, 00:00:00 [place] [facility] Preserv and ABX Free Bran ch 6 MO-64 YRS TDAP 2021-04-20 Completed [facility] 00:00:[address] [facility] Influenza Virus 2021-04-20 Completed [facility], 00:00:00 [place] [facility] Preserv and ABX Free Bran ch 6 MO-64 YRS TDAP 2021-04-20 Completed [facility] 00:00:[address] [facility] Influenza Virus 2021-04-20 Completed [facility] Vacc[facility] IM, 00:00:00 [place] [facility] Preserv and ABX Free Bran ch 6 MO-64 YRS TDAP 2021-04-20 Completed [facility] 00:00:[address] [facility] Influenza Virus 2021-04-20 Completed [facility] IM, 00:00:00 [place] [facility] Preserv and ABX Free Bran ch 6 MO-64 YRS TDAP 2021-04-20 Completed [facility] 00:00:[address] [facility] Influenza Virus 2021-04-20 Completed [facility] Vaccine [facility] IM, 00:00:00 [place] [facility] Preserv and ABX Free Bran ch 6 MO-64 YRS TDAP 2021-04-20 Completed [facility] 00:00:[address] [facility] Influenza Virus 2021-04-20 Completed [facility] IM, 00:00:00 [place] [facility] Preserv and ABX Free Bran ch 6 MO-64 YRS TDAP 2021-04-20 Completed [facility] 00:00:[address] [facility] TDAP 2021-04-20 Completed [facility] of 00:00:[address] [facility] Influenza Virus 2021-04-20 Completed [facility] Vaccine [facility] IM, 00:00:00 [place] [facility] Preserv and ABX Free Bran ch 6 MO-64 YRS Influenza Virus 2021-04-20 Completed [facility], 00:00:00 [place] [facility] Preserv and ABX Free Bran ch 6 MO-64 YRS TDAP 2021-04-20 Completed [facility] 00:00:[address] [facility] Influenza Virus 2021-04-20 Completed [facility] Vaccine [facility] IM, 00:00:00 [place] [facility] Preserv and ABX Free Bran ch 6 MO-64 YRS TDAP 2021-04-20 Completed [facility] 00:00:[address] [facility] Influenza Virus 2021-04-20 Completed [facility] Vaccine [facility] IM, 00:00:00 [place] [facility] Preserv and ABX Free Bran ch 6 MO-64 YRS TDAP 2021-04-20 Completed [facility] 00:00:[address] [facility] Influenza Virus 2021-04-20 Completed [facility] Vaccine [facility] IM, 00:00:00 [place] [facility] Preserv and ABX Free Bran ch 6 MO-64 YRS TDAP 2021-04-20 Completed [facility] 00:00:[address] [facility] Influenza Virus 2021-04-20 Completed [facility] Vacc[facility] IM, 00:00:00 [place] [facility] Preserv and ABX Free Bran ch 6 MO-64 YRS TDAP 2021-04-20 Completed [facility] 00:00:[address] [facility] Influenza Virus 2021-04-20 Completed [facility] Vacc[facility] IM, 00:00:00 [place] [facility] Preserv and ABX Free Bran ch 6 MO-64 YRS TDAP 2021-04-20 Completed [facility] 00:00:[address] [facility] Influenza Virus 2021-04-20 Completed [facility] Vacc[facility] IM, 00:00:00 [place] [facility] Preserv and ABX Free Bran ch 6 MO-64 YRS TDAP 2021-04-20 Completed [facility] 00:00:[address] [facility] Influenza Virus 2021-04-20 Completed [facility] Vaccine [facility] IM, 00:00:00 [place] [facility] Preserv and ABX Free Bran ch 6 MO-64 YRS TDAP 2021-04-20 Completed [facility] 00:00:[address] [facility] Influenza Virus 2021-04-20 Completed [facility] Vaccine [facility] IM, 00:00:00 [place] [facility] Preserv and ABX Free Bran ch 6 MO-64 YRS TDAP 2021-04-20 Completed [facility] 00:00:[address] [facility] Influenza Virus 2021-04-20 Completed [facility] Vacc[facility] IM, 00:00:00 [place] [facility] Preserv and ABX Free Bran ch 6 MO-64 YRS TDAP 2021-04-20 Completed [facility] 00:00:[address] [facility] Influenza Virus 2021-04-20 Completed [facility] IM, 00:00:00 [place] [facility] Preserv and ABX Free Bran ch 6 MO-64 YRS TDAP 2021-04-20 Completed [facility] 00:00:[address] [facility] Influenza Virus 2021-04-20 Completed [facility] Vaccine [facility] IM, 00:00:00 [place] [facility] Preserv and ABX Free Bran ch 6 MO-64 YRS TDAP 2021-04-20 Completed [facility] 00:00:[address] [facility] Influenza Virus 2021-04-20 Completed [facility] Vaccine [facility] IM, 00:00:00 [place] [facility] Preserv and ABX Free Bran ch 6 MO-64 YRS TDAP 2021-04-20 Completed [facility] 00:00:[address] [facility] Influenza Virus 2021-04-20 Completed [facility] Vacc[facility] IM, 00:00:00 [place] [facility] Preserv and ABX Free Bran ch 6 MO-64 YRS TDAP 2021-04-20 Completed [facility] 00:00:[address] [facility] Influenza Virus 2021-04-20 Completed [facility] Vacc[facility] IM, 00:00:00 [place] [facility] Preserv and ABX Free Bran ch 6 MO-64 YRS TDAP 2021-04-20 Completed [facility] 00:00:[address] [facility] Influenza Virus 2021-04-20 Completed [facility] IM, 00:00:00 [place] [facility] Preserv and ABX Free Bran ch 6 MO-64 YRS TDAP 2021-04-20 Completed [facility] 00:00:[address] [facility] Influenza Virus 2021-04-20 Completed [facility] Vaccine [facility] IM, 00:00:00 [place] [facility] Preserv and ABX Free Bran ch 6 MO-64 YRS TDAP 2021-04-20 Completed [facility] 00:00:[address] [facility] Influenza Virus 2021-04-20 Completed [facility] Vacc[facility] IM, 00:00:00 [place] [facility] Preserv and ABX Free Bran ch 6 MO-64 YRS TDAP 2021-04-20 Completed [facility] 00:00:[address] [facility] Influenza Virus 2021-04-20 Completed [facility] Vacc[facility] IM, 00:00:00 [place] [facility] Preserv and ABX Free Bran ch 6 MO-64 YRS TDAP 2021-04-20 Completed [facility] 00:00:[address] [facility] Influenza Virus 2021-04-20 Completed [facility], 00:00:00 [place] [facility] Preserv and ABX Free Bran ch 6 MO-64 YRS TDAP 2021-04-20 Completed [facility] 00:00:[address] [facility] Hep B, Adol or Pedi 2015-02-19 Completed Unive rsity of Dosage 00:00:[address] [facility] Meningococcal 2015-02-19 Completed [facility] of Polysaccharide 00:00:00 [place] [facility] (groups A, C, Y and Branc h W-135) conjugate vaccine (MCV4P) IPV 2015-02-19 Completed [facility] 00:00:[address] [facility] TDAP 2015-02-19 Completed [facility] 00:00:[address] [facility] Hep B, Adol or Pedi 2015-02-19 Completed Unive rsity of Dosage 00:00:[address] [facility] Meningococcal 2015-02-19 Completed [facility] Polysaccharide 00:00:00 [place] [facility] (groups A, C, Y and Branc h W-135) conjugate vaccine (MCV4P) IPV 2015-02-19 Completed [facility] 00:00:[address] [facility] TDAP 2015-02-19 Completed [facility] 00:00:[address] [facility] Hep B, Adol or Pedi 2015-02-19 Completed Unive rsity of Dosage 00:00:[address] [facility] Meningococcal 2015-02-19 Completed [facility] Polysaccharide 00:00:00 [place] [facility] (groups A, C, Y and Branc h W-135) conjugate vaccine (MCV4P) IPV 2015-02-19 Completed [facility] 00:00:00 [facility] TDAP 2015-02-19 Completed [facility] 00:00:00 [facility] Hep B, Adol or Pedi 2015-02-19 Completed [facility]ive rsity of Dosage 00:00:00 [facility] Meningococcal 2015-02-19 Completed [facility] Polysaccharide 00:00:00 [place] [facility] (groups A, C, Y and Branc h W-135) conjugate vaccine (MCV4P) IPV 2015-02-19 Completed [facility] 00:00:00 [place] [facility] TDAP 2015-02-19 Completed [facility] 00:00:00 [facility] Hep B, Adol or Pedi 2015-02-19 Completed Unive rsity of Dosage 00:00:00 [facility] Meningococcal 2015-02-19 Completed [facility] Polysaccharide 00:00:00 [place] [facility] (groups A, C, Y and Branc h W-135) conjugate vaccine (MCV4P) IPV 2015-02-19 Completed [facility] 00:00:00 [facility] TDAP 2015-02-19 Completed [facility] 00:00:00 [facility] Hep B, Adol or Pedi 2015-02-19 Completed [facility] rs[facility] of Dosage 00:00:00 [facility] Meningococcal 2015-02-19 Completed [facility] Polysaccharide 00:00:00 [place] [facility] (groups A, C, Y and Branc h W-135) conjugate vaccine (MCV4P) IPV 2015-02-19 Completed [facility] 00:00:00 [facility] TDAP 2015-02-19 Completed [facility] 00:00:00 [facility] Hep B, Adol or Pedi 2015-02-19 Completed Unive rsity of Dosage 00:00:00 [facility] Meningococcal 2015-02-19 Completed [facility] Polysaccharide 00:00:00 [place] [facility] (groups A, C, Y and Branc h W-135) conjugate vaccine (MCV4P) IPV 2015-02-19 Completed [facility] 00:00:00 [facility] TDAP 2015-02-19 Completed [facility] 00:00:00 [facility] Hep B, Adol or Pedi 2015-02-19 Completed [facility] rs[facility] of Dosage 00:00:00 [facility] Meningococcal 2015-02-19 Completed [facility] Polysaccharide 00:00:00 [place] [facility] (groups A, C, Y and Branc h W-135) conjugate vaccine (MCV4P) IPV 2015-02-19 Completed [facility] 00:00:00 [facility] TDAP 2015-02-19 Completed [facility] 00:00:00 [facility] Hep B, Adol or Pedi 2015-02-19 Completed [facility] rs[facility] of Dosage 00:00:00 [facility] Meningococcal 2015-02-19 Completed [facility] Polysaccharide 00:00:00 [place] [facility] (groups A, C, Y and Branc h W-135) conjugate vaccine (MCV4P) IPV 2015-02-19 Completed [facility] 00:00:00 [facility] TDAP 2015-02-19 Completed [facility] 00:00:00 [facility] Hep B, Adol or Pedi 2015-02-19 Completed [facility]ive rs[facility] of Dosage 00:00:00 [facility] Meningococcal 2015-02-19 Completed [facility] Polysaccharide 00:00:00 [place] [facility] (groups A, C, Y and Branc h W-135) conjugate vaccine (MCV4P) IPV 2015-02-19 Completed [facility] 00:00:00 [facility] TDAP 2015-02-19 Completed [facility] 00:00:00 [facility] Hep B, Adol or Pedi 2015-02-19 Completed [facility]ive rs[facility] of Dosage 00:00:00 [facility] Meningococcal 2015-02-19 Completed [facility] Polysaccharide 00:00:00 [place] [facility] (groups A, C, Y and Branc h W-135) conjugate vaccine (MCV4P) IPV 2015-02-19 Completed [facility] 00:00:00 [facility] TDAP 2015-02-19 Completed [facility] 00:00:00 [facility] Hep B, Adol or Pedi 2015-02-19 Completed [facility] rs[facility] of Dosage 00:00:00 [facility] Meningococcal 2015-02-19 Completed [facility] Polysaccharide 00:00:00 [place] [facility] (groups A, C, Y and Branc h W-135) conjugate vaccine (MCV4P) IPV 2015-02-19 Completed [facility] 00:00:00 [facility] TDAP 2015-02-19 Completed [facility] 00:00:00 [facility] Hep B, Adol or Pedi 2015-02-19 Completed [facility]ive rs[facility] of Dosage 00:00:00 [facility] Meningococcal 2015-02-19 Completed [facility] Polysaccharide 00:00:00 [place] [facility] (groups A, C, Y and Branc h W-135) conjugate vaccine (MCV4P) IPV 2015-02-19 Completed [facility] 00:00:[address] [facility] TDAP 2015-02-19 Completed [facility] 00:00:00 [facility] Hep B, Adol or Pedi 2015-02-19 Completed [facility]ive rs[facility] of Dosage 00:00:00 [facility] Meningococcal 2015-02-19 Completed [facility] Polysaccharide 00:00:00 [place] [facility] (groups A, C, Y and Branc h W-135) conjugate vaccine (MCV4P) IPV 2015-02-19 Completed [facility] of 00:00:[address] [facility] TDAP 2015-02-19 Completed [facility] 00:00:00 [facility] Hep B, Adol or Pedi 2015-02-19 Completed [facility]ive rs[facility] of Dosage 00:00:[address] [facility] Meningococcal 2015-02-19 Completed [facility] Polysaccharide 00:00:00 [place] [facility] (groups A, C, Y and Branc h W-135) conjugate vaccine (MCV4P) IPV 2015-02-19 Completed [facility] of 00:00:[address] [facility] TDAP 2015-02-19 Completed [facility] 00:00:00 [facility] Hep B, Adol or Pedi 2015-02-19 Completed [facility]ive rsity of Dosage 00:00:[address] [facility] Meningococcal 2015-02-19 Completed [facility] of Polysaccharide 00:00:00 [place] [facility] (groups A, C, Y and Branc h W-135) conjugate vaccine (MCV4P) IPV 2015-02-19 Completed [facility] 00:00:00 [facility] TDAP 2015-02-19 Completed [facility] 00:00:00 [facility] Hep B, Adol or Pedi 2015-02-19 Completed [facility]ive rs[facility] of Dosage 00:00:00 [facility] Meningococcal 2015-02-19 Completed [facility] Polysaccharide 00:00:00 [place] [facility] (groups A, C, Y and Branc h W-135) conjugate vaccine (MCV4P) IPV 2015-02-19 Completed [facility] 00:00:00 [facility] TDAP 2015-02-19 Completed [facility] 00:00:00 [facility] Hep B, Adol or Pedi 2015-02-19 Completed [facility]ive rs[facility] of Dosage 00:00:[address] [facility] Meningococcal 2015-02-19 Completed [facility] of Polysaccharide 00:00:00 [place] [facility] (groups A, C, Y and Branc h W-135) conjugate vaccine (MCV4P) IPV 2015-02-19 Completed [facility] of 00:00:[address] [facility] TDAP 2015-02-19 Completed [facility] of 00:00:[address] [facility] Hep B, Adol or Pedi 2015-02-19 Completed [facility]ive rsity of Dosage 00:00:[address] [facility] Meningococcal 2015-02-19 Completed [facility] Polysaccharide 00:00:00 [place] [facility] (groups A, C, Y and Branc h W-135) conjugate vaccine (MCV4P) IPV 2015-02-19 Completed [facility] of 00:00:[address] [facility] TDAP 2015-02-19 Completed [facility] of 00:00:[address] [facility] Hep B, Adol or Pedi 2015-02-19 Completed Unive rsity of Dosage 00:00:[address] [facility] Meningococcal 2015-02-19 Completed University of Polysaccharide 00:00:00 [facility] [place] stacy (groups A, C, Y and Branc h W-135) conjugate vaccine (MCV4P) IPV 2015-02-19 Completed [facility] of 00:00:[address] [facility] TDAP 2015-02-19 Completed [facility] of 00:00:[address] [facility] HEPATITIS A 2006-06-14 Completed [facility] of 00:00:[address] [facility] Varicella 2006-06-14 Completed University of (varivax)(chicken 00:00:00 [place] [facility] HEPATITIS A 2006-06-14 Completed [facility] of 00:00:[address] [facility] Varicella 2006-06-14 Completed [facility] (varivax)(chicken 00:00:00 [place] [facility] HEPATITIS A 2006-06-14 Completed [facility] of 00:00:[address] [facility] Varicella 2006-06-14 Completed [facility] (varivax)(chicken 00:00:00 [place] [facility] HEPATITIS A 2006-06-14 Completed [facility] of 00:00:[address] [facility] Varicella 2006-06-14 Completed University of (varivax)(chicken 00:00:00 [place] [facility] pox) [facility] HEPATITIS A 2006-06-14 Completed [facility] of 00:00:[address] [facility] Varicella 2006-06-14 Completed [facility] of (varivax)(chicken 00:00:00 [place] [facility] pox[facility] HEPATITIS A 2006-06-14 Completed [facility] of 00:00:[address] [facility] Varicella 2006-06-14 Completed [facility] of (varivax)(chicken 00:00:00 [place] [facility] pox) [facility] HEPATITIS A 2006-06-14 Completed [facility] of 00:00:[address] [facility] Varicella 2006-06-14 Completed [facility] of (varivax)(chicken 00:00:00 [place] [facility] pox) [facility] HEPATITIS A 2006-06-14 Completed [facility] of 00:00:[address] [facility] Varicella 2006-06-14 Completed [facility] of (varivax)(chicken 00:00:00 [place] [facility] pox) [facility] HEPATITIS A 2006-06-14 Completed [facility] of 00:00:[address] [facility] Varicella 2006-06-14 Completed [facility] of (varivax)(chicken 00:00:00 [place] [facility] pox) [facility] HEPATITIS A 2006-06-14 Completed [facility] of 00:00:[address] [facility] Varicella 2006-06-14 Completed [facility] of (varivax)(chicken 00:00:00 [place] [facility] pox) [facility] HEPATITIS A 2006-06-14 Completed [facility] of 00:00:[address] [facility] Varicella 2006-06-14 Completed [facility] of (varivax)(chicken 00:00:00 [place] [facility] pox) [facility] HEPATITIS A 2006-06-14 Completed [facility] of 00:00:[address] [facility] Varicella 2006-06-14 Completed [facility] of (varivax)(chicken 00:00:00 [place] [facility] pox) [facility] HEPATITIS A 2006-06-14 Completed [facility] of 00:00:[address] [facility] Varicella 2006-06-14 Completed [facility] (varivax)(chicken 00:00:00 [place] [facility] pox) [facility] HEPATITIS A 2006-06-14 Completed [facility] of 00:00:[address] [facility] Varicella 2006-06-14 Completed [facility] of (varivax)(chicken 00:00:00 [place] [facility] pox) [facility] HEPATITIS A 2006-06-14 Completed [facility] of 00:00:[address] [facility] Varicella 2006-06-14 Completed [facility] of (varivax)(chicken 00:00:00 [place] [facility] pox) [facility] HEPATITIS A 2006-06-14 Completed [facility] of 00:00:[address] [facility] Varicella 2006-06-14 Completed [facility] of (varivax)(chicken 00:00:00 [place] [facility] pox) [facility] HEPATITIS A 2006-06-14 Completed [facility] of 00:00:[address] [facility] Varicella 2006-06-14 Completed [facility] of (varivax)(chicken 00:00:00 [place] [facility] pox) [facility] HEPATITIS A 2006-06-14 Completed [facility] of 00:00:[address] [facility] Varicella 2006-06-14 Completed [facility] of (varivax)(chicken 00:00:00 [place] [facility] pox) [facility] HEPATITIS A 2006-06-14 Completed [facility] of 00:00:[address] [facility] Varicella 2006-06-14 Completed [facility] of (varivax)(chicken 00:00:00 [place] [facility] pox) [facility] HEPATITIS A 2006-06-14 Completed [facility] of 00:00:[address] [facility] Varicella 2006-06-14 Completed [facility] of (varivax)(chicken 00:00:00 [place] [facility] pox) [facility] DTaP, Unspecified 2006-03-14 Completed Univers ity of Formulation 00:00:[address] [facility] MMR 2006-03-14 Completed [facility] of 00:00:[address] [facility] IPV 2006-03-14 Completed [facility] of 00:00:[address] [facility] Varicella 2006-03-14 Completed [facility] of (varivax)(chicken 00:00:00 [place] [facility] pox) [facility] DTaP, Unspecified 2006-03-14 Completed Univers ity of Formulation 00:00:[address] [facility] MMR 2006-03-14 Completed [facility] of 00:00:[address] [facility] IPV 2006-03-14 Completed [facility] of 00:00:[address] [facility] Varicella 2006-03-14 Completed [facility] of (varivax)(chicken 00:00:00 [place] [facility] pox) [facility] DTaP, Unspecified 2006-03-14 Completed Univers ity of Formulation 00:00:[address] [facility] MMR 2006-03-14 Completed [facility] of 00:00:[address] [facility] IPV 2006-03-14 Completed [facility] of 00:00:[address] [facility] Varicella 2006-03-14 Completed [facility] of (varivax)(chicken 00:00:00 [place] [facility] pox) [facility] DTaP, Unspecified 2006-03-14 Completed Univers ity of Formulation 00:00:[address] [facility] MMR 2006-03-14 Completed [facility] of 00:00:[address] [facility] IPV 2006-03-14 Completed [facility] of 00:00:[address] [facility] Varicella 2006-03-14 Completed [facility] of (varivax)(chicken 00:00:00 [place] [facility] pox[facility] DTaP, Unspecified 2006-03-14 Completed Univers ity of Formulation 00:00:[address] [facility] MMR 2006-03-14 Completed [facility] of 00:00:[address] [facility] IPV 2006-03-14 Completed [facility] of 00:00:[address] [facility] Varicella 2006-03-14 Completed [facility] of (varivax)(chicken 00:00:00 [place] [facility] pox[facility] DTaP, Unspecified 2006-03-14 Completed Univers ity of Formulation 00:00:[address] [facility] MMR 2006-03-14 Completed [facility] of 00:00:[address] [facility] IPV 2006-03-14 Completed [facility] of 00:00:[address] [facility] Varicella 2006-03-14 Completed [facility] of (varivax)(chicken 00:00:00 [place] [facility] pox) [facility] DTaP, Unspecified 2006-03-14 Completed Univers ity of Formulation 00:00:[address] [facility] MMR 2006-03-14 Completed [facility] of 00:00:[address] [facility] IPV 2006-03-14 Completed [facility] of 00:00:[address] [facility] Varicella 2006-03-14 Completed [facility] of (varivax)(chicken 00:00:00 [place] [facility] pox[facility] DTaP, Unspecified 2006-03-14 Completed Univers ity of Formulation 00:00:[address] [facility] MMR 2006-03-14 Completed [facility] of 00:00:[address] [facility] IPV 2006-03-14 Completed [facility] of 00:00:[address] [facility] Varicella 2006-03-14 Completed [facility] of (varivax)(chicken 00:00:00 [place] [facility] pox[facility] DTaP, Unspecified 2006-03-14 Completed Univers ity of Formulation 00:00:[address] [facility] MMR 2006-03-14 Completed [facility] of 00:00:[address] [facility] IPV 2006-03-14 Completed [facility] of 00:00:[address] [facility] Varicella 2006-03-14 Completed [facility] of (varivax)(chicken 00:00:00 [place] [facility]ox[facility] DTaP, Unspecified 2006-03-14 Completed Univers ity of Formulation 00:00:[address] [facility] MMR 2006-03-14 Completed [facility] of 00:00:[address] [facility] IPV 2006-03-14 Completed [facility] of 00:00:[address] [facility] Varicella 2006-03-14 Completed [facility] of (varivax)(chicken 00:00:00 [place] [facility] pox) [facility] DTaP, Unspecified 2006-03-14 Completed Univers ity of Formulation 00:00:[address] [facility] MMR 2006-03-14 Completed [facility] of 00:00:00 [facility] IPV 2006-03-14 Completed University of 00:00:[address] [facility] Varicella 2006-03-14 Completed [facility] of (varivax)(chicken 00:00:00 [place] [facility] pox[facility] DTaP, Unspecified 2006-03-14 Completed Univers ity of Formulation 00:00:[address] [facility] MMR 2006-03-14 Completed [facility] of 00:00:[address] [facility] IPV 2006-03-14 Completed [facility] of 00:00:[address] [facility] Varicella 2006-03-14 Completed [facility] of (varivax)(chicken 00:00:00 [place] [facility] pox) [facility] DTaP, Unspecified 2006-03-14 Completed Univers ity of Formulation 00:00:[address] [facility] MMR 2006-03-14 Completed [facility] of 00:00:[address] [facility] IPV 2006-03-14 Completed [facility] of 00:00:[address] [facility] Varicella 2006-03-14 Completed [facility] of (varivax)(chicken 00:00:00 [place] [facility] pox) [facility] DTaP, Unspecified 2006-03-14 Completed Univers ity of Formulation 00:00:[address] [facility] MMR 2006-03-14 Completed [facility] of 00:00:00 [facility] IPV 2006-03-14 Completed University of 00:00:[address] [facility] Varicella 2006-03-14 Completed [facility] of (varivax)(chicken 00:00:00 [place] [facility] pox) [facility] DTaP, Unspecified 2006-03-14 Completed Univers ity of Formulation 00:00:[address] [facility] MMR 2006-03-14 Completed [facility] of 00:00:[address] [facility] IPV 2006-03-14 Completed [facility] of 00:00:[address] [facility] Varicella 2006-03-14 Completed [facility] of (varivax)(chicken 00:00:00 [place] [facility] pox) [facility] DTaP, Unspecified 2006-03-14 Completed Univers ity of Formulation 00:00:[address] [facility] MMR 2006-03-14 Completed [facility] of 00:00:00 [facility] IPV 2006-03-14 Completed [facility] of 00:00:00 [facility] Varicella 2006-03-14 Completed [facility] of (varivax)(chicken 00:00:00 [place] [facility] pox) [facility] DTaP, Unspecified 2006-03-14 Completed Univers ity of Formulation 00:00:[address] [facility] MMR 2006-03-14 Completed [facility] of 00:00:00 [facility] IPV 2006-03-14 Completed [facility] of 00:00:[address] [facility] Varicella 2006-03-14 Completed [facility] of (varivax)(chicken 00:00:00 [place] [facility] pox) [facility] DTaP, Unspecified 2006-03-14 Completed Univers ity of Formulation 00:00:[address] [facility] MMR 2006-03-14 Completed [facility] of 00:00:[address] [facility] IPV 2006-03-14 Completed [facility] of 00:00:[address] [facility] Varicella 2006-03-14 Completed [facility] of (varivax)(chicken 00:00:00 [place] [facility] pox[facility] DTaP, Unspecified 2006-03-14 Completed Univers ity of Formulation 00:00:[address] [facility] MMR 2006-03-14 Completed [facility] of 00:00:[address] [facility] IPV 2006-03-14 Completed [facility] of 00:00:[address] [facility] Varicella 2006-03-14 Completed [facility] of (varivax)(chicken 00:00:00 [place] [facility] pox) [facility] DTaP, Unspecified 2006-03-14 Completed Univers ity of Formulation 00:00:[address] [facility] MMR 2006-03-14 Completed [facility] of 00:00:[address] [facility] IPV 2006-03-14 Completed [facility] of 00:00:[address] [facility] Varicella 2006-03-14 Completed [facility] of (varivax)(chicken 00:00:00 [place] [facility] pox) [facility] HEPATITIS A 2005-09-29 Completed [facility] of 00:00:[address] [facility] HEPATITIS A 2005-09-29 Completed University of 00:00:[address] [facility] HEPATITIS A 2005-09-29 Completed [facility] of 00:00:[address] [facility] HEPATITIS A 2005-09-29 Completed University of 00:00:[address] [facility] HEPATITIS A 2005-09-29 Completed University of 00:00:[address] [facility] HEPATITIS A 2005-09-29 Completed [facility] of 00:00:[address] [facility] HEPATITIS A 2005-09-29 Completed [facility] of 00:00:[address] [facility] HEPATITIS A 2005-09-29 Completed University of 00:00:[address] [facility] HEPATITIS A 2005-09-29 Completed [facility] of 00:00:[address] [facility] HEPATITIS A 2005-09-29 Completed University of 00:00:[address] [facility] HEPATITIS A 2005-09-29 Completed University of 00:00:[address] [facility] HEPATITIS A 2005-09-29 Completed [facility] of 00:00:[address] [facility] HEPATITIS A 2005-09-29 Completed [facility] of 00:00:[address] [facility] HEPATITIS A 2005-09-29 Completed University of 00:00:[address] [facility] HEPATITIS A 2005-09-29 Completed University of 00:00:[address] [facility] HEPATITIS A 2005-09-29 Completed [facility] of 00:00:[address] [facility] HEPATITIS A 2005-09-29 Completed [facility] of 00:00:[address] [facility] HEPATITIS A 2005-09-29 Completed University of 00:00:[address] [facility] HEPATITIS A 2005-09-29 Completed University of 00:00:[address] [facility] HEPATITIS A 2005-09-29 Completed [facility] of 00:00:[address] [facility] DTaP, Unspecified 2005-06-29 Completed Univers ity of Formulation 00:00:[address] [facility] HIB 4 Dose Schedule 2005-06-29 Completed Unive rsity of 00:00:[address] [facility] MMR 2005-06-29 Completed University of 00:00:[address] [facility] Pneumococcal 7 2005-06-29 Completed University of Conjugate, PCV7 00:00:00 [place] [facility] (Prevnar7) [facility] IPV 2005-06-29 Completed [facility] of 00:00:[address] [facility] Varicella 2005-06-29 Completed [facility] of (varivax)(chicken 00:00:00 [place] [facility] pox) [facility] DTaP, Unspecified 2005-06-29 Completed Univers ity of Formulation 00:00:[address] [facility] HIB 4 Dose Schedule 2005-06-29 Completed Unive rsity of 00:00:[address] [facility] MMR 2005-06-29 Completed University of 00:00:[address] [facility] Pneumococcal 7 2005-06-29 Completed University of Conjugate, PCV7 00:00:00 [place] [facility] (Prevnar7) [facility] IPV 2005-06-29 Completed University of 00:00:[address] [facility] Varicella 2005-06-29 Completed [facility] of (varivax)(chicken 00:00:00 [place] [facility] pox) Branch DTaP, Unspecified 2005-06-29 Completed Univers ity of Formulation 00:00:[address] [facility] HIB 4 Dose Schedule 2005-06-29 Completed Unive rsity of 00:00:[address] [facility] MMR 2005-06-29 Completed University of 00:00:[address] [facility] Pneumococcal 7 2005-06-29 Completed University of Conjugate, PCV7 00:00:00 [place] [facility] (Prevnar7) [facility] IPV 2005-06-29 Completed [facility] of 00:00:[address] [facility] Varicella 2005-06-29 Completed [facility] of (varivax)(chicken 00:00:00 [facility] edical pox) Branch DTaP, Unspecified 2005-06-29 Completed Univers ity of Formulation 00:00:[address] [facility] HIB 4 Dose Schedule 2005-06-29 Completed Unive rsity of 00:00:[address] [facility] MMR 2005-06-29 Completed University of 00:00:[address] [facility] Pneumococcal 7 2005-06-29 Completed University of Conjugate, PCV7 00:00:00 [place] [facility] (Prevnar7) Branch IPV 2005-06-29 Completed [facility] of 00:00:[address] [facility] Varicella 2005-06-29 Completed [facility] of (varivax)(chicken 00:00:00 [place] [facility] pox) [facility] DTaP, Unspecified 2005-06-29 Completed Univers ity of Formulation 00:00:[address] [facility] HIB 4 Dose Schedule 2005-06-29 Completed Unive rsity of 00:00:[address] [facility] MMR 2005-06-29 Completed University of 00:00:[address] [facility] Pneumococcal 7 2005-06-29 Completed University of Conjugate, PCV7 00:00:00 [place] [facility] (Prevnar7) Branch IPV 2005-06-29 Completed [facility] of 00:00:[address] [facility] Varicella 2005-06-29 Completed [facility] of (varivax)(chicken 00:00:00 [place] [facility] pox) Branch DTaP, Unspecified 2005-06-29 Completed Univers ity of Formulation 00:00:[address] [facility] HIB 4 Dose Schedule 2005-06-29 Completed Unive rsity of 00:00:[address] [facility] MMR 2005-06-29 Completed University of 00:00:[address] [facility] Pneumococcal 7 2005-06-29 Completed University of Conjugate, PCV7 00:00:00 [place] [facility] (Prevnar7) Branch IPV 2005-06-29 Completed [facility] of 00:00:[address] [facility] Varicella 2005-06-29 Completed [facility] of (varivax)(chicken 00:00:00 [facility] edical pox) Branch DTaP, Unspecified 2005-06-29 Completed Univers ity of Formulation 00:00:[address] [facility] HIB 4 Dose Schedule 2005-06-29 Completed Unive rsity of 00:00:[address] [facility] MMR 2005-06-29 Completed University of 00:00:[address] [facility] Pneumococcal 7 2005-06-29 Completed University of Conjugate, PCV7 00:00:00 [place] [facility] (Prevnar7) Branch IPV 2005-06-29 Completed [facility] of 00:00:[address] [facility] Varicella 2005-06-29 Completed [facility] of (varivax)(chicken 00:00:00 [facility] edical pox) Branch DTaP, Unspecified 2005-06-29 Completed Univers ity of Formulation 00:00:[address] [facility] HIB 4 Dose Schedule 2005-06-29 Completed Unive rsity of 00:00:[address] [facility] MMR 2005-06-29 Completed University of 00:00:[address] [facility] Pneumococcal 7 2005-06-29 Completed University of Conjugate, PCV7 00:00:00 [place] [facility] (Prevnar7) [facility] IPV 2005-06-29 Completed [facility] of 00:00:[address] [facility] Varicella 2005-06-29 Completed [facility] of (varivax)(chicken 00:00:00 [facility] edical pox) Branch DTaP, Unspecified 2005-06-29 Completed Univers ity of Formulation 00:00:[address] [facility] HIB 4 Dose Schedule 2005-06-29 Completed Unive rsity of 00:00:[address] [facility] MMR 2005-06-29 Completed University of 00:00:[address] [facility] Pneumococcal 7 2005-06-29 Completed University of Conjugate, PCV7 00:00:00 [place] [facility] (Prevnar7) Branch IPV 2005-06-29 Completed [facility] of 00:00:[address] [facility] Varicella 2005-06-29 Completed [facility] of (varivax)(chicken 00:00:00 [place] [facility] pox) [facility] DTaP, Unspecified 2005-06-29 Completed Univers ity of Formulation 00:00:[address] [facility] HIB 4 Dose Schedule 2005-06-29 Completed Unive rsity of 00:00:[address] [facility] MMR 2005-06-29 Completed University of 00:00:[address] [facility] Pneumococcal 7 2005-06-29 Completed University of Conjugate, PCV7 00:00:00 [place] [facility] (Prevnar7) [facility] IPV 2005-06-29 Completed [facility] of 00:00:[address] [facility] Varicella 2005-06-29 Completed [facility] of (varivax)(chicken 00:00:00 [facility] edical pox) Branch DTaP, Unspecified 2005-06-29 Completed Univers ity of Formulation 00:00:[address] [facility] HIB 4 Dose Schedule 2005-06-29 Completed Unive rsity of 00:00:[address] [facility] MMR 2005-06-29 Completed University of 00:00:[address] [facility] Pneumococcal 7 2005-06-29 Completed University of Conjugate, PCV7 00:00:00 [place] [facility] (Prevnar7) [facility] IPV 2005-06-29 Completed [facility] of 00:00:[address] [facility] Varicella 2005-06-29 Completed University of (varivax)(chicken 00:00:00 [facility] edical pox) Branch DTaP, Unspecified 2005-06-29 Completed Univers ity of Formulation 00:00:[address] [facility] HIB 4 Dose Schedule 2005-06-29 Completed Unive rsity of 00:00:[address] [facility] MMR 2005-06-29 Completed University of 00:00:[address] [facility] Pneumococcal 7 2005-06-29 Completed University of Conjugate, PCV7 00:00:00 [place] [facility] (Prevnar7) [facility] IPV 2005-06-29 Completed [facility] of 00:00:[address] [facility] Varicella 2005-06-29 Completed University of (varivax)(chicken 00:00:00 [facility] edical pox) Branch DTaP, Unspecified 2005-06-29 Completed Univers ity of Formulation 00:00:[address] [facility] HIB 4 Dose Schedule 2005-06-29 Completed Unive rsity of 00:00:[address] [facility] MMR 2005-06-29 Completed University of 00:00:[address] [facility] Pneumococcal 7 2005-06-29 Completed University of Conjugate, PCV7 00:00:00 [place] [facility] (Prevnar7) [facility] IPV 2005-06-29 Completed [facility] of 00:00:[address] [facility] Varicella 2005-06-29 Completed [facility] of (varivax)(chicken 00:00:00 [place] [facility] pox) [facility] DTaP, Unspecified 2005-06-29 Completed Univers ity of Formulation 00:00:[address] [facility] HIB 4 Dose Schedule 2005-06-29 Completed Unive rsity of 00:00:[address] [facility] MMR 2005-06-29 Completed University of 00:00:[address] [facility] Pneumococcal 7 2005-06-29 Completed University of Conjugate, PCV7 00:00:00 [place] [facility] (Prevnar7) [facility] IPV 2005-06-29 Completed [facility] of 00:00:[address] [facility] Varicella 2005-06-29 Completed University of (varivax)(chicken 00:00:00 [facility] edical pox) Branch DTaP, Unspecified 2005-06-29 Completed Univers ity of Formulation 00:00:[address] [facility] HIB 4 Dose Schedule 2005-06-29 Completed Unive rsity of 00:00:[address] [facility] MMR 2005-06-29 Completed University of 00:00:[address] [facility] Pneumococcal 7 2005-06-29 Completed University of Conjugate, PCV7 00:00:00 [place] [facility] (Prevnar7) Branch IPV 2005-06-29 Completed [facility] of 00:00:[address] [facility] Varicella 2005-06-29 Completed [facility] of (varivax)(chicken 00:00:00 [place] [facility] pox) [facility] DTaP, Unspecified 2005-06-29 Completed Univers ity of Formulation 00:00:[address] [facility] HIB 4 Dose Schedule 2005-06-29 Completed Unive rsity of 00:00:[address] [facility] MMR 2005-06-29 Completed University of 00:00:[address] [facility] Pneumococcal 7 2005-06-29 Completed University of Conjugate, PCV7 00:00:00 [place] [facility] (Prevnar7) Branch IPV 2005-06-29 Completed [facility] of 00:00:00 [facility] Varicella 2005-06-29 Completed University of (varivax)(chicken 00:00:00 [facility] edical pox) Branch DTaP, Unspecified 2005-06-29 Completed Univers ity of Formulation 00:00:[address] [facility] HIB 4 Dose Schedule 2005-06-29 Completed Unive rsity of 00:00:[address] [facility] MMR 2005-06-29 Completed University of 00:00:[address] [facility] Pneumococcal 7 2005-06-29 Completed University of Conjugate, PCV7 00:00:00 [place] [facility] (Prevnar7) Branch IPV 2005-06-29 Completed [facility] of 00:00:[address] [facility] Varicella 2005-06-29 Completed [facility] of (varivax)(chicken 00:00:00 [place] [facility] pox) [facility] DTaP, Unspecified 2005-06-29 Completed Univers ity of Formulation 00:00:[address] [facility] HIB 4 Dose Schedule 2005-06-29 Completed Unive rsity of 00:00:[address] [facility] MMR 2005-06-29 Completed University of 00:00:[address] [facility] Pneumococcal 7 2005-06-29 Completed University of Conjugate, PCV7 00:00:00 [facility] (Prevnar7) [facility] IPV 2005-06-29 Completed University of 00:00:[address] [facility] Varicella 2005-06-29 Completed University of (varivax)(chicken 00:00:00 [facility] edical pox) Branch DTaP, Unspecified 2005-06-29 Completed Univers ity of Formulation 00:00:[address] [facility] HIB 4 Dose Schedule 2005-06-29 Completed Unive rsity of 00:00:[address] [facility] MMR 2005-06-29 Completed University of 00:00:[address] [facility] Pneumococcal 7 2005-06-29 Completed University of Conjugate, PCV7 00:00:00 [facility] (Prevnar7) [facility] IPV 2005-06-29 Completed University of 00:00:[address] [facility] Varicella 2005-06-29 Completed University of (varivax)(chicken 00:00:00 [facility] edical pox) Branch DTaP, Unspecified 2005-06-29 Completed Univers ity of Formulation 00:00:[address] [facility] HIB 4 Dose Schedule 2005-06-29 Completed Unive rsity of 00:00:[address] [facility] MMR 2005-06-29 Completed University of 00:00:[address] [facility] Pneumococcal 7 2005-06-29 Completed University of Conjugate, PCV7 00:00:00 [place] [facility] (Prevnar7) [facility] IPV 2005-06-29 Completed University of 00:00:00 [facility] Varicella 2005-06-29 Completed University of (varivax)(chicken 00:00:00 [facility] pox) [facility] Hep B, Adol or Pedi 2002 Completed Unive rsity of Dosage 00:00:00 [facility] Hep B, Adol or Pedi 2002 Completed Unive rsity of Dosage 00:00:00 [facility] Hep B, Adol or Pedi 2002 Completed Unive rsity of Dosage 00:00:00 [facility] Hep B, Adol or Pedi 2002 Completed Unive rsity of Dosage 00:00:00 [facility] Hep B, Adol or Pedi 2002 Completed Unive rsity of Dosage 00:00:00 [facility] Hep B, Adol or Pedi 2002 Completed Unive rsity of Dosage 00:00:00 [facility] Hep B, Adol or Pedi 2002 Completed Unive rsity of Dosage 00:00:00 [facility] Hep B, Adol or Pedi 2002 Completed Unive rsity of Dosage 00:00:00 [facility] Hep B, Adol or Pedi 2002 Completed Unive rsity of Dosage 00:00:00 [facility] Hep B, Adol or Pedi 2002 Completed Unive rsity of Dosage 00:00:00 [facility] Hep B, Adol or Pedi 2002 Completed Unive rsity of Dosage 00:00:00 [facility] Hep B, Adol or Pedi 2002 Completed Unive rsity of Dosage 00:00:00 [facility] Hep B, Adol or Pedi 2002 Completed Unive rsity of Dosage 00:00:00 [facility] Hep B, Adol or Pedi 2002 Completed Unive rsity of Dosage 00:00:00 [facility] Hep B, Adol or Pedi 2002 Completed Unive rsity of Dosage 00:00:00 [facility] Hep B, Adol or Pedi 2002 Completed Unive rsity of Dosage 00:00:00 [facility] Hep B, Adol or Pedi 2002 Completed Unive rsity of Dosage 00:00:00 [facility] Hep B, Adol or Pedi 2002 Completed Unive rsity of Dosage 00:00:00 [facility] Hep B, Adol or Pedi 2002 Completed Unive rsity of Dosage 00:00:00 [facility] Hep B, Adol or Pedi 2002 Completed Unive rsity of Dosage 00:00:[address] [facility] Vital Signs Vital Name Observation Time Observation Value Comments Source Systolic blood 2022-08-17 15:18:00 111 mm[Hg] Univer sity of pressure [facility] Diastolic blood 2022-08-17 15:18:00 79 mm[Hg] Unive rsity of pressure [facility] Heart rate 2022-08-17 15:18:00 63 /min Universi ty [facility] Body temperature 2022-08-17 15:18:00 37.44 Gia Univ ersity of [facility] Respiratory rate 2022-08-17 15:18:00 18 /min Univ ersity of [facility] Oxygen saturation in 2022-08-17 15:18:00 100 /min University of Arterial blood by [facility] Pulse oximetry Branch Body height 2022-08-15 21:19:[address] [facility] Body weight 2022-08-15 21:19:[address] [facility] BMI 2022-08-15 21:19:00 22.86 kg/m2 [facility] Systolic blood 2022-08-16 04:05:00 113 mm[Hg] Univer sity of pressure [facility] Diastolic blood 2022-08-16 04:05:00 87 mm[Hg] Unive rsity of pressure [facility] Heart rate 2022-08-16 04:05:00 78 /min Universi ty of [facility] Respiratory rate 2022-08-16 04:05:00 17 /min Univ ersity of [facility] Oxygen saturation in 2022-08-16 04:05:00 100 /min University of Arterial blood by [facility] Pulse oximetry Branch Body temperature 2022-08-16 03:35:00 36.33 Gia Univ ersity of [facility] Body height 2022-08-15 21:19:00 154.9 cm Universi ty of [facility] Body weight 2022-08-15 21:19:00 54.885 kg Universi ty of [facility] BMI 2022-08-15 21:19:00 22.86 kg/m2 Universi ty of [facility] Systolic blood 2022-07-27 18:44:00 105 mm[Hg] Univer sity of pressure [facility] Diastolic blood 2022-07-27 18:44:00 66 mm[Hg] Unive rsity of pressure [facility] Heart rate 2022-07-27 18:44:00 89 /min Universi ty of [facility] Body temperature 2022-07-27 18:44:00 36.72 Gia Univ ersity of [facility] Respiratory rate 2022-07-27 18:44:00 16 /min Univ ersity of [facility] Body height 2022-07-27 18:44:00 154.9 cm Universi ty of [facility] Body weight 2022-07-27 18:44:00 54.976 kg Universi ty of [facility] BMI 2022-07-27 18:44:00 22.90 kg/m2 Universi ty of [facility] Systolic blood 2022-07-20 17:41:00 98 mm[Hg] Univer sity of pressure [facility] Diastolic blood 2022-07-20 17:41:00 55 mm[Hg] Unive rsity of pressure [facility] Heart rate 2022-07-20 17:41:00 83 /min Universi ty of [facility] Body temperature 2022-07-20 17:41:00 36.22 Gia Univ ersity of [facility] Respiratory rate 2022-07-20 17:41:00 17 /min Univ ersity of [facility] Body height 2022-07-20 17:41:00 154.9 cm Universi ty of [facility] Body weight 2022-07-20 17:41:00 55.838 kg Universi ty of [facility] BMI 2022-07-20 17:41:00 23.26 kg/m2 Universi ty of [facility] Systolic blood 2022-07-06 13:28:00 101 mm[Hg] Univer sity of pressure [facility] Diastolic blood 2022-07-06 13:28:00 61 mm[Hg] Unive rsity of pressure [facility] Heart rate 2022-07-06 13:28:00 87 /min Universi ty of [facility] Body temperature 2022-07-06 13:28:00 36.17 Gia Univ ersity of [facility] Respiratory rate 2022-07-06 13:28:00 18 /min Univ ersity of [facility] Body height 2022-07-06 13:28:00 157.5 cm Universi ty of [facility] Body weight 2022-07-06 13:28:00 55.084 kg Universi ty of [facility] BMI 2022-07-06 13:28:00 22.21 kg/m2 Universi ty of [facility] Systolic blood 2022-05-31 21:48:00 103 mm[Hg] Univer sity of pressure [facility] Diastolic blood 2022-05-31 21:48:00 66 mm[Hg] Unive rsity of pressure [facility] Heart rate 2022-05-31 21:48:00 88 /min Universi ty of [facility] Body temperature 2022-05-31 21:48:00 36.11 Gia Univ ersity of [facility] Respiratory rate 2022-05-31 21:48:00 18 /min Univ ersity of [facility] Body height 2022-05-31 21:48:00 154.9 cm Universi ty of [facility] Body weight 2022-05-31 21:48:00 54.035 kg Universi ty of [facility] BMI 2022-05-31 21:48:00 22.51 kg/m2 Universi ty of [facility] Systolic blood 2022-05-17 21:39:00 99 mm[Hg] Univer sity of pressure [facility] Diastolic blood 2022-05-17 21:39:00 61 mm[Hg] Unive rsity of pressure [facility] Heart rate 2022-05-17 21:39:00 82 /min Universi ty of [facility] Body temperature 2022-05-17 21:39:00 36.06 Gia Univ ersity of [facility] Respiratory rate 2022-05-17 21:39:00 18 /min Univ ersity of [facility] Body height 2022-05-17 21:39:00 154.9 cm Universi ty of [facility] Body weight 2022-05-17 21:39:00 53.978 kg Universi ty of [facility] BMI 2022-05-17 21:39:00 22.48 kg/m2 Universi ty of [facility] Systolic blood 2022-05-03 20:41:00 124 mm[Hg] Univer sity of pressure [facility] Diastolic blood 2022-05-03 20:41:00 66 mm[Hg] Unive rsity of pressure [facility] Heart rate 2022-05-03 20:41:00 87 /min Universi ty of [facility] Body temperature 2022-05-03 20:41:00 36.28 Gia Univ ersity of [facility] Respiratory rate 2022-05-03 20:41:00 18 /min Univ ersity of [facility] Body height 2022-05-03 20:41:00 154.9 cm Universi ty of [facility] Body weight 2022-05-03 20:41:00 52.872 kg Universi ty of [facility] BMI 2022-05-03 20:41:00 22.02 kg/m2 Universi ty of [facility] Systolic blood 2022-03-26 18:45:00 104 mm[Hg] Univer sity of pressure [facility] Diastolic blood 2022-03-26 18:45:00 65 mm[Hg] Unive rsity of pressure [facility] Heart rate 2022-03-26 18:45:00 75 /min Universi ty of [facility] Body temperature 2022-03-26 18:45:00 36.06 Gia Univ ersity of [facility] Respiratory rate 2022-03-26 18:45:00 18 /min Univ ersity of [facility] Body height 2022-03-26 18:45:00 154.9 cm Universi ty of [facility] Body weight 2022-03-26 18:45:00 48.943 kg Universi ty of [facility] BMI 2022-03-26 18:45:00 20.39 kg/m2 Universi ty of [facility] Systolic blood 2022-02-02 20:29:00 100 mm[Hg] Univer sity of pressure [facility] Diastolic blood 2022-02-02 20:29:00 67 mm[Hg] Unive rsity of pressure [facility] Heart rate 2022-02-02 20:29:00 81 /min Universi ty of [facility] Body temperature 2022-02-02 20:29:00 36.28 Gia Univ ersity of [facility] Respiratory rate 2022-02-02 20:29:00 17 /min Univ ersity of [facility] Body height 2022-02-02 20:29:00 154.9 cm Universi ty of [facility] Body weight 2022-02-02 20:29:00 47.219 kg Universi ty of [facility] BMI 2022-02-02 20:29:00 19.67 kg/m2 Universi ty of [facility] Systolic blood 2021-06-24 20:07:00 135 mm[Hg] Univer sity of pressure [facility] Diastolic blood 2021-06-24 20:07:00 65 mm[Hg] Unive rsity of pressure [facility] Heart rate 2021-06-24 20:07:00 99 /min Universi ty of [facility] Body temperature 2021-06-24 20:07:00 36.44 Gia Univ ersity of [facility] Respiratory rate 2021-06-24 20:07:00 19 /min Univ ersity of [facility] Body height 2021-06-24 20:07:00 152.4 cm Universi ty of [facility] Body weight 2021-06-24 20:07:00 50.009 kg Universi ty of [facility] BMI 2021-06-24 20:07:00 21.53 kg/m2 Universi ty of [facility] Body mass index 2021-06-24 20:07:00 49.11 % Unive rsity of (BMI) [Percentile] [place] [facility] Per age and sex Branch Systolic blood 2021-06-18 04:30:00 110 mm[Hg] Univer sity of pressure [facility] Diastolic blood 2021-06-18 04:30:00 59 mm[Hg] Unive rsity of pressure [facility] Heart rate 2021-06-18 04:30:00 104 /min Universi ty of [facility] Respiratory rate 2021-06-18 04:30:00 16 /min Univ ersity of [facility] Oxygen saturation in 2021-06-18 04:30:00 100 /min University Arterial blood by [facility] Pulse oximetry Branch Body temperature 2021-06-18 04:00:00 37.17 [facility] height 2021-06-16 13:00:[address] [facility] Body weight 2021-06-16 13:00:[address] [facility] BMI 2021-06-16 13:00:00 23.06 kg/m2 [facility] Body mass index 2021-06-16 13:00:00 65.77 % Unive rsity of (BMI) [Percentile] [facility] ica Per age and sex Branch Procedures Procedure Date / Time Performing Clinician Source Performed CBC WITH DIFF 2022-08-17 08:50:00 Jessica Gavinelsa [facility] TRANSFUSE PACKED RBC 2022-08-17 04:16:00 [facility] PREPARE PACKED RBC 2022-08-17 03:29:18 [facility] TRANSFUSE PACKED RBC 2022-08-17 00:45:00 [facility] CBC WITHOUT DIFF 2022-08-16 18:27:00 Titi [facility] CBC WITHOUT DIFF 2022-08-16 18:27:00 Titi [facility] TRXN WORKUP-ABBREVIATED 2022-08-16 14:29:33 Joshua Dexter [facility] TRXN WORKUP-ABBREVIATED 2022-08-16 14:29:33 Joshua Dexter [facility] URINALYSIS 2022-08-16 13:48:00 Joshua Dexter [facility] URINALYSIS 2022-08-16 13:48:00 Joshua Dexter [facility] PREPARE PACKED RBC 2022-08-16 11:33:09 Titi [facility] PREPARE PACKED RBC 2022-08-16 11:33:09 Titi [facility] CBC WITH DIFF 2022-08-16 09:19:00 [facility] CBC WITH DIFF 2022-08-16 09:19:00 Gurjit [facility] CENTRAL NEURAXIAL BLOCK 2022-08-16 02:11:00 Scott Santos [facility] SECTION 2022-08-16 01:46:00 Joshua Dexter [facility] SECTION 2022-08-16 01:46:00 Joshua Dexter [facility] HB ABO GROUPING 2022-08-15 21:35:00 Agnieszka Montano [facility] RHO (D) IMMUNE GLOBULIN 2022-08-15 21:35:00 Gurjit [facility] HB ABO GROUPING 2022-08-15 21:35:00 Agnieszka Montano [facility] RHO (D) IMMUNE GLOBULIN 2022-08-15 21:35:00 Gurjit [facility] CBC WITH DIFF 2022-08-15 21:32:00 Agnieszka Montano Radha [facility] HEPATITIS B SURFACE 2022-08-15 21:32:00 Charmaine Agnieszka [facility] ANTIGEN [facility] SYPHILIS IGG/IGM 2022-08-15 21:32:00 Agnieszka Montano Mai [facility] CBC WITH DIFF 2022-08-15 21:32:00 Agnieszka Montano [facility] HEPATITIS B SURFACE 2022-08-15 21:32:00 Agnieszka Montano [facility] SYPHILIS IGG/IGM 2022-08-15 21:32:00 Agnieszka Montano Mai [facility] POCT URINALYSIS W/O 2022-07-27 18:47:00 Radha Bartholomew [facility] POCT URINALYSIS W/O 2022-07-20 17:53:00 Radha Bartholomew [facility] POCT URINALYSIS W/O 2022-07-06 13:29:00 Radha Bartholomew [facility] [place] NOTICE OF RESEARCH 2022-07-06 06:01:00 Doctor Juana [facility] PARTICIPATION [facility] TDAP VACCINE, >11 YRS, IM 2022-05-31 22:19:26 Lu Eason [facility] POCT URINALYSIS W/O 2022-05-31 21:49:00 Corrine Hernandez [facility] POCT URINALYSIS W/O 2022-05-17 21:40:00 David Corrine [facility] FLU VACC (), 6 2022-05-03 21:07:25 Lu Eason [facility] MO-66 YRS, .5ML, IM, QUAD Medica l Branch (FLUCELVAX) POCT URINALYSIS W/O 2022-05-03 20:42:00 Corrine Hernandez [facility] [place] POCT URINALYSIS W/O 2022-03-26 18:50:00 Corrine Hernandez [facility] [place] AUTHORIZATION FOR RELEASE 2022-02-24 05:01:00 Doctor Juana, [facility] PO[facility] URINALYSIS W/O 2022-02-02 20:32:00 Corrine Hernandez [facility] ASSIGNMENT OF BENEFITS 2022-02-02 20:03:25 Doctor Juana, [facility] REPORT OF 2021-12-22 05:01:00 Doctor Juana, [facility] REFERRAL- 2021-07-08 06:01:00 Doctor Juana, [facility] REQUEST/RESPONSE [facility] CBC WITH DIFF 2021-06-18 11:17:00 Carlo Crowder [facility] EXTRA TUBE LAV 2021-06-18 11:17:00 Jessica Garcia [facility] VENOUS CORD GAS 2021-06-18 05:10:00 Nicko Terrazas [facility] INTUBATION 2021-06-18 05:04:00 Renee Lopez [facility] SECTION 2021-06-18 04:22:00 Joshua Dexter [facility] CENTRAL NEURAXIAL BLOCK 2021-06-16 19:44:29 Don Frost [facility] CBC WITH DIFF 2021-06-16 04:42:00 Tram Meier [facility] HEPATITIS B SURFACE 2021-06-16 04:42:00 Tram Meier [facility] ANTIGEN [facility] HIV 1/2 AG-AB WITH REFLEX 2021-06-16 04:42:00 [facility] - SYPHILIS 2021-06-16 04:42:00 Tram Meier [facility] IGG/IGM [facility] HB ABO GROUPING 2021-06-16 04:23:00 Tram Meier [facility] RHO (D) IMMUNE GLOBULIN 2021-06-16 04:23:00 Carlo Crowder [facility] COVID-19 (ID NOW RAPID 2021-06-16 03:30:00 Jessica Garcia [facility] TESTING) [facility] LAB ONLY COVID 2021-06-16 03:30:00 Jessica Garcia [facility] INTERPRETATION [facility] Encounters Start End Encounter Admission Attending Care Care Encounter Source Date/Time Date/Time Type Type Clinicians Facility Department ID 2021-04-12 Outpatient [facility] [id number] Legacy 14:40:43 [id number] Critical access hospital 2022-09-09 2022-09-09 Outpatient R CORRINE HERNANDEZ [facility] [id number] Univers 13:00:00 13:00:00 CORRINE HERNANDEZ karlos [facility] 2022-08-15 2022-08-17 [facility] SIN Dexter 1.2.840.114 [id number] Univers 14:24:00 13:39:00 Encounter Joshua EDDY 350.1.13.10 deepthi [facility] 4.2.7.2.686 Radames as [id number] [place] [address] Branch 2022-08-15 2022-08-17 Inpatient P JOSHUA DEXTER [facility] IVETTE 1 [id number] Univers 14:24:00 13:39:00 JOSHUA DEXTER [facility] 2022-08-15 2022-08-15 Surgery SIN Dexter 1.2.840.114 [id number] Univers 20:10:00 22:08:00 Joshua EDDY 350.1.13.10 ity of [facility] 4.2.7.2.686 Radames as [id number] [address] 2022-08-15 2022-08-15 Anesthesia Matheus Reina 1.2.840 .114 [id number] Univers 20:02:00 21:34:00 Event Lisa Ross 350.1.1 3.10 ity of [facility] 4.2.7.2.686 Radames as [id number] [address] 2022-08-10 2022-08-10 Outpatient Kera BARTHOLOMEW [facility] [id number] Univers 16:30:00 16:30:00 RADHA [facility] 2022-08-03 2022-08-03 Outpatient Kera BARTHOLOMEW [facility] [id number] Univers 12:30:00 12:30:00 RADHA [facility] 2022-08-03 2022-08-03 Patient Doctor SIN 1.2.840.114 [id number] Univers 00:00:00 00:00:00 Secure Msg UnassignedNUNU 350.1.13.10 ity of [place] [facility] 4.2.7.2.686 Radames as [id number] [address] 2022-08-03 2022-08-03 Patient Puma COLILLIE 1.2.392.436 [id number] Univers 00:00:00 00:00:00 Secure Msg Radha N CUSTOMER FIELD REPRESENTATIVE 350.1.13.[address] [facility] 4.2.7.2.686 Radames as MATERNAL [id number] [facility] ical & CHILD [address] [place] [address] 2022-07-27 2022-07-27 Outpatient Kera BARTHOLOMEW [facility] [id number] Univers 12:45:00 13:34:28 RADHA lacey [facility] 2022-07-27 2022-07-27 Routine Puma COLILLIE 1.2.413.084 [id number] Univers 12:45:00 13:34:28 Radha N CUSTOMER FIELD REPRESENTATIVE 350.1.13.10 i ty of Visit REGIONAL 4.2.7.2.686 Radames as MATERNAL [id number] [facility] CH[facility] [address] [place] [address] 2022-07-27 2022-07-27 Letter [facility] 1.2.176.177 [id number] Univers 00:00:00 00:00:00 (Out) Radha N CUSTOMER FIELD REPRESENTATIVE 350.1.13.10 it y of REGIONAL 4.2.7.2.686 Radames as MATERNAL [id number] [facility] CH[facility] [address] [place] [address] 2022-07-21 2022-07-21 Telephone [facility] 1.2.840.114 [id number] Univers 00:00:00 00:00:00 Radah N CUSTOMER FIELD REPRESENTATIVE 350.1.13.[address] [facility] 4.2.7.2.686 Radames as MATERNAL [id number] [facility] & CHILD [address] [place] [address] 2022-07-20 2022-07-20 Routine [facility] [id number] Univers 10:45:00 12:09:40 Radha N CUSTOMER FIELD REPRESENTATIVE 350.1.13.10 i ty of Visit [facility] 4.2.7.2.686 Radames as MATERNAL [id number] [facility] & [address] 2022-07-20 2022-07-20 Outpatient P WAN [facility] [id number] Univers 10:00:00 10:29:34 LINDA lacey [facility] 2022-07-20 2022-07-20 Supportive Employment Case Manager 1, [facility] 1.2. 840.114 [id number] Univers 10:00:00 10:29:34 Visit Linda Blas CUSTOMER FIELD REPRESENTATIVE 350.1.13.[address] [facility] 4.2.7.2.686 Radames as MATERNAL [id number] [facility] CHILD [address] [place] [address] 2022-07-06 2022-07-06 [facility] [id number] Univers 07:15:00 08:05:[address] [facility] 2022-07-06 2022-07-06 [facility] 1.2.128.364 [id number] Univers 07:15:00 08:05:14 Radha Jacky CUSTOMER FIELD REPRESENTATIVE 350.1.13.10 i ty of Visit [facility] 4.2.7.2.686 Radames as MATERNAL [id number] [facility] & CHILD [address] [place] [address] 2022-07-06 2022-07-06 Orders Doctor SIN 1.2.840.114 [id number] Univers 00:00:00 00:00:00 Only Unassigned, NUNU 350.1.13.10 ity of [place] [facility] 4.2.7.2.686 Radames as [id number] [address] 2022-06-14 2022-06-14 [facility] [id number] Univers 15:15:00 15:15:00 LU neff [facility] 2022-05-31 2022-05-31 [facility] [id number] Univers 15:30:00 16:32:[address] [facility] 2022-05-31 2022-05-31 [facility] 1.2.840.114 [id number] Univers 15:30:00 16:32:05 Lu Oviedo CUSTOMER FIELD REPRESENTATIVE 350.1.13.[address] [facility] 4.2.7.2.686 Radames as MATERNAL [id number] [address] 2022-05-18 2022-05-18 Case [facility] 1.2.840.114 [id number] Univers 00:00:00 00:00:00 Management Lu Oviedo CUSTOMER FIELD REPRESENTATIVE 350.1.13.10 ity of REGIONAL 4.2.7.2.686 Radames as MATERNAL [id number] [address] 2022-05-17 2022-05-17 Outpatient [facility] [id number] Univers 15:45:00 16:20:[address] [facility] 2022-05-17 2022-05-17 [facility] 1.2.840.114 [id number] Univers 15:45:00 16:20:29 Lu Oviedo CUSTOMER FIELD REPRESENTATIVE 350.1.13.10 ity of Visit REGIONAL 4.2.7.2.686 Radames as MATERNAL [id number] [facility] ical & CHILD [address] [place] [address] 2022-05-03 2022-05-03 Outpatient R JENARO [facility] [id number] Univers 15:15:00 15:31:26 LU ity o f [facility] 2022-05-03 2022-05-03 [facility]ine [facility] 1.2.840.114 [id number] Univers 15:15:00 15:31:26 Lu Oviedo CUSTOMER FIELD REPRESENTATIVE 350.1.13.10 ity of Visit REGIONAL 4.2.7.2.686 Radames as MATERNAL [id number] [facility] ical & CHILD [address] [place] [address] 2022-05-03 2022-05-03 Letter [facility] 1.2.840.114 [id number] Univers 00:00:00 00:00:00 (Out) Lu Oviedo CUSTOMER FIELD REPRESENTATIVE 350.1.13.10 ity of REGIONAL 4.2.7.2.686 Radames as MATERNAL [id number] [facility] ical & CHILD [address] [place] [address] 2022-04-27 2022-04-27 Corey Vargas [facility] 1.2.171.251 [id number] Univers 00:00:00 00:00:00 Pea-Rmchp CUSTOMER FIELD REPRESENTATIVE 350.1.13.10 ity of Provider/Hi REGIONAL 4.2.7.2.686 [place] gh MATERNAL [phone] Med ical & CHILD [address] [place] [address] 2022-03-29 2022-03-29 Jeff Montes [facility] 1.2.840.114 [id number] Univers 00:00:00 00:00:00 Management Fabiola Shetty CUSTOMER FIELD REPRESENTATIVE 350.1.13.10 ity of REGIONAL 4.2.7.2.686 Radames as MATERNAL [id number] Med ical & CHILD [address] [place] [address] 2022-03-29 2022-03-29 Abstract David [facility] 1.2.243.172 [id number] Univers 00:00:00 00:00:00 Corrine CUSTOMER FIELD REPRESENTATIVE 350.1.13.[address] [facility] 4.2.7.2.686 Radames as MATERNAL [id number] [facility] ical & CHILD [address] [place] [address] 2022-03-26 2022-03-26 Routine Risk, Pea-Rmchp Provider/High [facility] 1.2.840.114 [id number] Univers 14:15:00 14:20:36 Bin Diane CUSTOMER FIELD REPRESENTATIVE 350.1 .13.10 ity of Visit Fabiola Montes [facility] 4.2.7.2.686 [place] MATERNAL [phone] [facility] ical & CHILD [address] [place] [address] 2022-03-26 2022-03-26 Outpatient P BENEDICTO [facility] [id number] Univers 13:00:00 13:35:40 BIN ity of [facility] 2022-03-26 2022-03-26 Supportive Employment Case Manager [facility] Room [facility] 1.2. 840.114 [id number] Univers 13:00:00 13:35:40 Visit Bin Diane CUSTOMER FIELD REPRESENTATIVE 350.1. 13.[address] [facility] 4.2.7.2.686 Radames as MATERNAL [phone] [facility] ical & CHILD [address] [place] [address] 2022-03-02 2022-03-02 Outpatient Kera EASON [facility] [id number] Univers 15:15:00 15:15:[address] [facility] 2022-02-24 2022-02-24 Orders Doctor SIN 1.2.840.114 [id number] Univers 00:00:00 00:00:00 Only Unassigned, NUNU 350.1.13.10 ity of [place] [facility] 4.2.7.2.686 Radames as [id number] [address] 2022-02-02 2022-02-02 Outpatient KASANDRA RUBALCAVA [facility] [id number] Univers 15:15:00 15:58:06 LONPUMAKASANDRA ity [facility] 2022-02-02 2022-02-02 Routine Provider, Lisseth [facility] 1 .2.840.114 [id number] Univers 15:15:00 15:58:06 Kasandra Valentino CUSTOMER FIELD REPRESENTATIVE 350.1.13.[address] [facility] 4.2.7.2.686 Radames as MATERNAL [id number] [facility] & [address] 2022-02-02 2022-02-02 Orders Doctor ISN 1.2.840.114 [id number] Univers 00:00:00 00:00:00 Only Unassigned, NUNU 350.1.13.10 ity of [place] [address]..2.686 Radames as [phone] [address] 2022-01-19 2022-01-19 Outpatient R CORRINE HERNANDEZ [facility] [id number] Univers 13:00:00 13:00:00 CORRINE HERNANDEZ [facility] 2022-01-07 2022-01-07 Supportive Employment Case Manager 1, [facility] Room [facility] 1.2. 840.114 [id number] Univers 11:30:00 12:00:00 Visit Leda Roca CUSTOMER FIELD REPRESENTATIVE 350.1.13.10 ity of [address]686 Radames as MATERNAL [id number] [facility] & [address] 2022-01-07 2022-01-07 Outpatient P [facility] [id number] Univers 11:30:00 11:30:[address] [facility] 2022-01-07 2022-01-07 Outpatient P LEDA ROCA [facility] [id number] Univers 11:30:00 11:30:00 LEDA ROCA [facility] 2022-01-07 2022-01-07 Abstract David [facility] 1.2.708.029 [id number] Univers 00:00:00 00:00:00 Corrine CUSTOMER FIELD REPRESENTATIVE 350.1.13.10 it y of [place] [address].2.7.2.686 Radames as MATERNAL [phone] [facility] ical & CHILD [address] [place] [address] 2021-12-24 2021-12-24 Telephone [facility] 1.2.840.114 [id number] Univers 00:00:00 00:00:00 Corrine CUSTOMER FIELD REPRESENTATIVE 350.1.13.10 it y of REGIONAL 4.2.7.2.686 Radames as MATERNAL [id number] [facility] & CHILD [address] [place] [address] 2021-12-22 2021-12-22 Initial [facility] 1.2.840.114 [id number] Univers 08:30:00 09:44:31 Corrine CUSTOMER FIELD REPRESENTATIVE 350.1.13.10 i ty of Visit REGIONAL 4.2.7.2.686 Radames as MATERNAL [id number] [address] 2021-12-22 2021-12-22 Outpatient R CORRINE HERNANDEZ [facility] [id number] Univers 08:30:00 09:44:31 CORRINE HERNANDEZ [facility] 2021-12-22 2021-12-22 Orders Doctor SIN 1.2.840.114 [id number] Univers 00:00:00 00:00:00 Only Unassigned, NUNU 350.1.13.10 ity of [place] [facility] 4.2.7.2.686 Radames as [id number] [address] 2021-07-08 2021-07-08 Orders Doctor SIN 1.2.840.114 [id number] Univers 00:00:00 00:00:00 Only Unassigned, NUNU 350.1.13.10 ity of [place] [facility] 4.2.7.2.686 Radames as [id number] [address] 2021-07-03 2021-07-03 [facility] 1.2.840.114 [id number] Univers 00:00:00 00:00:00 Blanca Gaines CUSTOMER FIELD REPRESENTATIVE 350.1.13.10 i ty of REGIONAL 4.2.7.2.686 Radames as MATERNAL [id number] [facility] & CHILD [address] [place] [address] 2021-06-24 2021-06-24 Outpatient R JENARO [facility] [id number] Univers 14:00:00 14:35:13 LU neff michael [facility] 2021-06-24 2021-06-24 [facility] Fp Nrpt Pills Class [facility] 1.2.840.114 [id number] Univers 14:00:00 14:15:00 Visit Lu Eason CUSTOMER FIELD REPRESENTATIVE 350.1.13.10 ity [facility] 4.2.7.2.686 Radames as MATERNAL [id number] [facility] ical & CHILD [address] [place] [address] 2021-06-24 2021-06-24 Outpatient R JENARO [facility] [id number] Univers 14:00:00 14:00:00 LU neff michael [facility] 2021-06-21 2021-06-21 SIN [place] 1.2.840.114 [id number] Univers 00:00:00 00:00:00 Management Guilherme EDDY 350.1.13.10 ity [facility] 42.7.2.686 Radames as [id number] [facility] [address] 2021-06-20 2021-06-20 Telephone SIN Martin 1.2.840.114 [id number] Univers 00:00:00 00:00:00 Marni NUNU 350.1.13.10 it y [facility] 4.2.7.2.686 Radames as [id number] [facility] [address] 2021-06-15 2021-06-19 Inpatient P JOSE [facility] IVETTE [id number] Univers 21:04:00 13:36:00 JESSICA ity of [facility] 2021-06-15 2021-06-19 Hospital SIN Garcia 1.2.840.114 [id number] Univers 21:04:00 13:36:00 Encounter Jessica EDDY 350.1.13.10 ity [facility] 42.7.2.686 Radames as [phone] [facility] [address] 2021-06-17 2021-06-17 Surgery SIN Dexter 1.2.840.114 [id number] Univers 22:10:00 23:55:00 Joshua EDDY 350.1.13.10 ity of [facility] 4.2.7.2.686 Radames as 616.8033741 [facility] [address] [place] 2021-06-16 2021-06-17 Anesthesia Don lazcano 1.2.840. 114 [id number] Univers 13:36:00 23:44:00 Event Deborah Hoffman 350.1.13.10 ity [place] [address].7.2.686 Radames as [id number] [facility] [address] 2021-06-16 2021-06-17 Anesthesia TvDon lazcano 1.2.840. 114 [id number] Univers 13:36:00 23:44:00 Event Deborah Hoffman 350.1.13.10 ity [place] [address].2.7.2.686 Radames as [id number] [facility] [address] 2021-06-17 2021-06-17 Outpatient R DELFINA [facility] [id number] Univers 13:45:00 13:45:00 BLANCA [facility] 2021-06-15 2021-06-15 Inpatient P JOSE [facility] IVETTE [id number] Univers 21:04:00 21:04:00 JESSICA [facility] 2021-06-15 2021-06-15 Supportive Employment Case Manager 1, Mari Room [facility] 1.2. 840.114 [id number] Univers 13:00:00 13:33:11 Visit Vega Ramos CUSTOMER FIELD REPRESENTATIVE 350.1.13.10 ity [place] [address].2.7.2.686 Radames as MATERNAL [id number] [facility] [address] [place] [address] 2021-06-15 2021-06-15 Outpatient P MUSHTAQ [facility] IVETTE [id number] Univers 13:00:00 13:33:11 [facility] 2021-06-15 2021-06-15 Outpatient P MUSHTAQ [facility] [id number] Univers 13:00:00 13:33:11 [facility] 2021-06-15 2021-06-15 [facility] [id number] Univers 13:00:00 13:00:00 VEGA ity [facility] 2021-06-10 2021-06-10 Outpatient R [facility] [id number] Univers 09:30:00 09:30:00 BLANCA ity [facility] 2021-06-01 2021-06-01 Routine [facility] 1.2.840.114 [id number] Univers 10:03:53 10:43:36 Blanca L CUSTOMER FIELD REPRESENTATIVE 350.1.13.10 ity of Visit REGIONAL 4.2.7.2.686 Radames as MATERNAL [id number] [facility] [address] [place] [address] 2021-06-01 2021-06-01 Outpatient R [facility] [id number] Univers 10:00:00 10:43:36 BLANCA ity [facility] 2021-05-18 2021-05-18 Routine [facility] 1.2.840.114 [id number] Univers 08:38:13 09:12:41 Blanca L CUSTOMER FIELD REPRESENTATIVE 350.1.13.10 ity of Visit REGIONAL 4.2.7.2.686 Radames as MATERNAL [id number] [address] 2021-05-18 2021-05-18 Outpatient R [facility] [id number] Univers 08:30:00 09:12:41 BLANCA ity [facility] 2021-05-04 2021-05-04 Routine [facility] 1.2.840.114 [id number] Univers 08:36:41 09:12:41 Lu Preet CUSTOMER FIELD REPRESENTATIVE 350.1.13.10 ity of Visit REGIONAL 4.2.7.2.686 Radames as MATERNAL [id number] [facility] & [address] 2021-05-04 2021-05-04 [facility] [id number] Univers 08:30:00 09:12:41 LU lacey o f [facility] 2021-04-20 2021-04-20 Routine Provider, [facility] 1 .2.840.114 [id number] Univers 15:50:31 16:18:22 Radha Bartholomew CUSTOMER FIELD REPRESENTATIVE 350.1.13.10 ity of Visit REGIONAL 4.2.7.2.686 Radames as MATERNAL [id number] [facility] [address] [place] [address] 2021-04-20 2021-04-20 Outpatient R [facility] [id number] Univers 15:45:00 15:45:00 ity [facility] 2021-04-17 2021-04-17 Orders Doctor SIN 1.2.840.114 [id number] Univers 00:00:00 00:00:00 Only Unassigned, NUNU 350.1.13.10 ity of [place] [facility] 4.2.7.2.686 Radames as [id number] [address] 2021-03-31 2021-03-31 Patient Jose [facility] 1.2.840.114 [id number] Univers 00:00:00 00:00:00 Secure Msg Cassandra CUSTOMER FIELD REPRESENTATIVE 350.1.13.10 ity of REGIONAL 4.2.7.2.686 Radames as MATERNAL [id number] [address] 2021-03-30 2021-03-30 [facility] .2.840.114 [id number] Univers 15:17:31 16:35:25 Cassandra Garcia CUSTOMER FIELD REPRESENTATIVE 350.1.13.[address] [facility] 4.2.7.2.686 Radames as MATERNAL [id number] [facility] & CHILD [address] [place] [address] 2021-03-30 2021-03-30 Outpatient R JOSE [facility] [id number] Univers 15:45:00 15:45:00 CASSANDRA ity [facility] 2021-03-23 2021-03-23 Outpatient R [facility] [id number] Univers 15:15:00 15:15:00 ity [facility] 2021-03-10 2021-03-10 [facility] [id number] Univers 16:00:00 16:00:00 BLANCA [facility] 2021-03-05 2021-03-05 Outpatient Kera [facility] [id number] Univers 10:30:00 10:30:00 RADHA [facility] 2021-02-26 2021-02-26 Supportive Employment Case Manager Ultrasound, SusanMfoliver [facility] 1.2 .840.114 [id number] Univers 12:59:33 13:59:33 Visit Mohan Kaur CUSTOMER FIELD REPRESENTATIVE 350.1.13.[address] [facility] 4.2.7.2.686 Radames as MATERNAL [id number] Med ical & CHILD 369 [facility] 2021-02-26 2021-02-26 Outpatient P [facility] [id number] Univers 13:00:00 13:00:00 [facility] 2021-02-24 2021-02-24 Outpatient Kera [facility] [id number] Univers 13:00:00 13:00:00 RADHA [facility] 2021-02-14 2021-02-14 Outpatient R LIDYA [facility] [id number] Univers 10:00:00 10:00:00 ATTENDING [facility] 2021-02-12 2021-02-12 Telephone [facility] 1.2.840.114 [id number] Univers 00:00:00 00:00:00 Henry Faye CUSTOMER FIELD REPRESENTATIVE 350.1.13.[address] [facility] 4.2.7.2.686 Radames as MATERNAL [id number] Med ical & CHILD 107 [facility] 2021-02-12 2021-02-12 Telephone [facility] 1.2.840.114 [id number] Univers 00:00:00 00:00:00 Radha Rico CUSTOMER FIELD REPRESENTATIVE 350.1.13.[address] [facility] 4.2.7.2.686 Radames as MATERNAL [id number] Med ical & CHILD 124 [facility] 2021-02-10 2021-02-10 Supportive Employment Case Manager Lab, Tito-Rmchp [facility] 1.2.840. 114 [id number] Univers 16:49:01 16:49:16 Visit Henry Mathis CUSTOMER FIELD REPRESENTATIVE 350.1.13. 10 ity of REGIONAL 4.2.7.2.686 Radames as MATERNAL [id number] [facility] & CHILD [address] [place] [address] 2021-02-10 2021-02-10 Outpatient R DELFINA [facility] [id number] Univers 16:00:00 16:00:00 HENRY lacey o f [facility] 2021-02-09 2021-02-09 Telephone [facility] 1.2.840.114 [id number] Univers 00:00:00 00:00:00 Radha N CUSTOMER FIELD REPRESENTATIVE 350.1.13.[address] [facility] 4.2.7.2.686 Radames as MATERNAL [id number] [address] 2021-01-29 2021-01-29 Telephone [facility] 1.2.840.114 [id number] Univers 00:00:00 00:00:00 Radha Rico CUSTOMER FIELD REPRESENTATIVE 350.1.13.[address] [facility] 4.2.7.2.686 Radames as MATERNAL [id number] [facility] & CHILD [address] [place] [address] 2021-01-27 2021-01-27 Outpatient R PUMA [facility] [id number] Univers 13:15:00 13:15:00 RADHA lacey of [facility] 2021-01-27 2021-01-27 Initial [facility] 1.2.193.486 [id number] Univers 11:10:18 11:40:18 Radha Rico CUSTOMER FIELD REPRESENTATIVE 350.1.13.10 i ty of Visit REGIONAL 4.2.7.2.686 Radames as MATERNAL 258.1366051 [facility] [address] [place] [address] 2021-01-27 2021-01-27 Orders Doctor SIN 1.2.840.114 [id number] Univers 00:00:00 00:00:00 Only Unassigned, NUNU 350.1.13.10 ity of [place] [facility] 4.2.7.2.686 Radames as [id number] [address] Results Test Description Test Time Test Comments Results Result Comments Source CBC WITH DIFF 2022-08-17 10:17:25 Test Item Value Reference Range Interpretation Comme nts WBC (test code = 6690-2) 8.74 See_Comment [A utomated message] The system which Somo nerated this result transmit yeny reference range: 4.30 - 1 1.10 10*3/?L. The reference r tana was not used to interpr et this result as normal/abnor mal. RBC (test code = 789-8) 4.01 See_Comment [Au tomated message] The system which Somo nerated this result transmit yeny reference range: 3.93 - 5 .25 10*6/?L. The reference r tana was not used to interpr et this result as normal/abnor mal. HGB (test code = 718-7) 8.7 g/dL 11.6-15.0 L HCT (test code = 4544-3) 29.0 % 35.7-45.2 L MCV (test code = 787-2) 72.3 fL 80.6-95.5 L MCH (test code = 785-6) 21.7 pg 25.9-32.8 L MCHC (test code = 786-4) 30.0 g/dL 31.6-35.1 L RDW-SD (test code = 93533-4) 47.4 fL 39.0-49.9 RDW-CV (test code = 788-0) 18.4 % 12.0-15.5 H PLT (test code = 777-3) 148 See_Comment L [Au tomated message] The system which Somo nerated this result transmit yeny reference range: 166 - 35 8 10*3/?L. The reference range was not used to interpret th is result as normal/abnormal . MPV (test code = 08076-8) 11.7 fL 9.5-12.9 IPF % (test code = 7.7 % 1.3-7.7 Platelet count measured by [id number]) fluorescence me thod. NRBC/100 WBC (test code = 0.0 See_Comment [ Automated message] The 2774782878) system which Somo nerated this result transmit yeny reference range: 0.0 - 10 .0 /100 WBCs. The reference r tana was not used to interpr et this result as normal/abnor mal. NRBC x10^3 (test code = See_Comment [Au tomated message] The 4120736987) system which Somo nerated this result transmit yeny reference range: 10*3/?L. The reference range was not u sed to interpret this result as normal/abnormal . GRAN MAT (NEUT) % (test code 62.1 % = 770-8) IMM GRAN % (test code = 0.60 % 8567794486) LYMPH % (test code = 736-9) 27.2 % MONO % (test code = 5905-5) 8.7 % EOS % (test code = 713-8) 1.1 % BASO % (test code = 706-2) 0.3 % GRAN MAT x10^3(ANC) (test 5.42 10*3/uL 1.88-7.09 code = 1610904439) IMM GRAN x10^3 (test code = 0.05 10*3/uL 0.00-0.06 7830145900) LYMPH x10^3 (test code = 2.38 10*3/uL 1.32-3.29 731-0) MONO x10^3 (test code = 0.76 10*3/uL 0.33-0.92 742-7) EOS x10^3 (test code = 0.10 10*3/uL 0.03-0.39 711-2) BASO x10^3 (test code = 0.03 10*3/uL 0.01-0.07 704-7) POLYCHROMASIA (test code = 2+ See_Comment [Automated message] The 27869-4) system which Somo nerated this result transmit yeny reference range: 2+. The reference range was not used to interpret this result as kriss l/abnormal. Lab Interpretation (test Abnormal code = 58588-7) [facility] Packed RBC (in units)2022-08-17 03:29:18 Test Item Value Reference Range Interpretation Comments Cross Match Result Compatible (test code = 4409) ISBT Blood Type Code 7300 (test code = 463020) Unit Blood Type (test B Pos code = 4410) Unit Number (test [id number] code = 4411) Blood Expiration Date & Time (test code = 961091) Status Information Issued (test code = 4412) Product Red Blood Cells Identification (test code = 4413) Product Code (test [id number] Performed at [facility] code = 4414) Laboratory Services - [facility] Blood [address] [address]Tqzk Free: [phone] A No. [id number] [facility] ONLY - SYPHILIS [id number] 15:48:31 Test Item Value Reference Range Interpretation Comments Syphilis IgG/IgM (test Non-reactive Non-reactive code = 24737-1) JESUS (test code = JESUS) Non-reactive - No serologic evidence of T. pallidum infection. Cannot exclude incubating or early syphilis. Submit a second specimen in 2-4 weeks if syphilis is clinically suspected. Equivocal - Further testing to follow. Reactive - Further testing to follow. Lab Interpretation (test Normal code = 22747-4) [facility] ONLY - SYPHILIS [id number] 15:48:31 Test Item Value Reference Range Interpretation Comments Syphilis IgG/IgM (test Non-reactive Non-reactive code = 51885-2) JESUS (test code = JESUS) Non-reactive - No serologic evidence of T. pallidum infection. Cannot exclude incubating or early syphilis. Submit a second specimen in 2-4 weeks if syphilis is clinically suspected. Equivocal - Further testing to follow. Reactive - Further testing to follow. Lab Interpretation (test Normal code = 13845-8) [facility] 14:29:51 Test Item Value Reference Range Interpretation Comments APPEARANCE (test code = Clear Clear 2505598961) COLOR (test code = Yellow Yellow 2577536190) PH (test code = 7.0 4.8-8.0 7847122762) SP GRAVITY (test code = 1.010 1.003-1.030 7598797758) GLU U QUAL (test code = Normal Normal 1356074067) BLOOD (test code = 1+ Negative A 3881121732) KETONES (test code = Negative Negative 5193891845) PROTEIN (test code = Negative Negative 2887-8) UROBILIN (test code = 2.0 mg/dL Normal A 8583103566) BILIRUBIN (test code = Negative Negative 1519910494) NITRITE (test code = Negative Negative 1898190530) LEUK JENNI (test code = 25/uL Negative A 9778252051) RBC/HPF (test code = 4 See_Comment H [Autom ated message] 3396201564) The system [employer] generated this result transmit yeny reference range : 0 - 3 HPF. The refe rence range was not u sed to interpret th is result as normal/abnormal . WBC/HPF (test code = 1 See_Comment [Autom ated message] 1212592307) The system [employer] generated this result transmit yeny reference range : 0 - 5 HPF. The refe rence range was not u sed to interpret th is result as normal/abnormal . BACTERIA (test code = Negative Negative 9503015956) MUCOUS (test code = Slight Negative LPF A 3032002722) Lab Interpretation (test Abnormal code = 05371-8) [facility]23-02-20 14:29:51 Test Item Value Reference Range Interpretation Comments APPEARANCE (test code = Clear Clear 6953503277) COLOR (test code = Yellow Yellow 5166170783) PH (test code = 7.0 4.8-8.0 0563126335) SP GRAVITY (test code = 1.010 1.003-1.030 4167103382) GLU U QUAL (test code = Normal Normal 4578859337) BLOOD (test code = 1+ Negative A 3088246280) KETONES (test code = Negative Negative 8343848630) PROTEIN (test code = Negative Negative 2887-8) UROBILIN (test code = 2.0 mg/dL Normal A 3721183360) BILIRUBIN (test code = Negative Negative 2551203615) NITRITE (test code = Negative Negative 8351938566) LEUK JENNI (test code = 25/uL Negative A 9269617631) RBC/HPF (test code = 4 See_Comment H [Autom ated message] 0720508725) The system [employer] generated this result transmit yeny reference range : 0 - 3 HPF. The refe rence range was not u sed to interpret th is result as normal/abnormal . WBC/HPF (test code = 1 See_Comment [Autom ated message] [id number]) The system [employer] generated this result transmit yeny reference range : 0 - 5 HPF. The refe rence range was not u sed to interpret th is result as normal/abnormal . BACTERIA (test code = Negative Negative 7126065332) MUCOUS (test code = Slight Negative LPF A [id number]) Lab Interpretation (test Abnormal code = 07848-3) [facility] [id number] 14:29:33 Test Item Value Reference Range Interpretation Comments PRE SERUM (test No Hemolysis Performed at [facility] code = 1637) NotedNo [facility] Noted Services - [address] [id number] Free: [phone] A No. [id number] POST ABO & RH B Positive Performed at [facility] (test code = Laboratory 1616) Services - [address] [address]Vhfo Free: [phone] A No. [id number] CLERICAL CK (test Acceptable Performed at [facility] code = 542) Laboratory Services - [address] [id number] Free: [phone] A No. [id number] POST AMOL (test Negative Performed at [facility] code = 1619) Laboratory Services - [address] [address]Kvlu Free: [phone] A No. [id number] POST SERUM (test No Hemolysis Performed a t [facility] code = 1620) NotedNo [facility] Noted Services - [address] [address]Wkfz Free: [phone] A No. [id number] PRELIM RESULT Negative TxRxn Performed at [facility] (test code = Laboratory 3962) Services - [address] [address]Abqq Free: [phone] A No. [id number] PRODUCT (test RBC- See comment [id number] 227Perfo code = 2110) rmed at [facility] Laboratory Services - [address] [address]Mwhx Free: [phone] A No. [id number] [facility]inte[facility] [id number] 14:29:33 Test Item Value Reference Range Interpretation Comments PRE SERUM (test No Hemolysis Performed at [facility] code = 1637) NotedNo [facility] Noted Services - [address] [address]Egwf Free: [phone] A No. [id number] POST ABO & RH B Positive Performed at [facility] (test code = Laboratory 1616) Services - [address] [address]Qrpq Free: [phone] A No. [id number] CLERICAL CK (test Acceptable Performed at [facility] code = 542) Laboratory Services - [place] [id number] Free: [phone] A No. [id number] POST AMOL (test Negative Performed at [facility] code = 1619) Laboratory Services - [address] Free: [phone] A No. [id number] POST SERUM (test No Hemolysis Performed a t [facility] code = 1620) NotedNo [facility] Noted Services - [address] [address]Lmsd Free: [phone] A No. [id number] PRELIM RESULT Negative TxRxn Performed at [facility] (test code = Laboratory 3962) Services - [address] [address]Rjey Free: [phone] A No. [id number] PRODUCT (test RBC- See comment [id number] 227Perfo code = 2110) rmed at [facility] Laboratory Services - [address] [address]Zbyi Free: [phone] A No. [id number] [facility]intePrep[facility] Packed RBC (in units), 1 Units 2022-08-16 11:33:09 Test Item Value Reference Range Interpretation Comments Cross Match Result Compatible (test code = 4409) ISBT Blood Type Code 7300 (test code = 971260) Unit Blood Type (test B Pos code = 4410) Unit Number (test [id number] code = 4411) Blood Expiration Date & Time (test code = 496048) Status Information Issued (test code = 4412) Product Red Blood Cells Identification (test code = 4413) Product Code (test [id number] Performed at [facility] code = 4414) Laboratory Services - [facility] Blood [address] [address]Eikt Free: [phone] A No. [id number] [facility]par Packed RBC (in units), 1 Units 2022-08-16 11:33:09 Test Item Value Reference Range Interpretation Comments Cross Match Result Compatible (test code = 4409) ISBT Blood Type Code 7300 (test code = 179783) Unit Blood Type (test B Pos code = 4410) Unit Number (test [id number] code = 4411) Blood Expiration Date & Time (test code = 982214) Status Information Issued (test code = 4412) Product Red Blood Cells Identification (test code = 4413) Product Code (test [id number] Performed at [facility] code = 4414) Laboratory Services - [facility] Blood [address] [address]Nsmq Free: [phone] A No. [id number] General acute hospital (D) IMMUNE [id number] 03:43:18 Test Item Value Reference Range Interpretation Comments RHIG CANDIDATE? No- see comment Patient i s not a (test code = candidate for R hIg- 5055) Patient is Rh Positive.Perfor med at [facility] Laboratory Services - [facility] Blood [address] Free: [phone] A No. [id number] General acute hospital (D) IMMUNE [id number] 03:43:18 Test Item Value Reference Range Interpretation Comments RHIG CANDIDATE? No- see comment Patient i s not a (test code = candidate for R hIg- 5055) Patient is Rh Positive.Perfor med at [facility] Laboratory Services - [facility] Blood [address] [place] [address]Hwhd Free: [phone] A No. [id number] [facility] B Surface [id number] 22:50:46 Test Item Value Reference Range Interpretation Comments HBsAg Semi-Quantitative (test code = 0.06 Negative 5195-3) [facility] B Surface [id number] 22:50:46 Test Item Value Reference Range Interpretation Comments HBsAg Semi-Quantitative (test code = 0.06 Negative 5195-3) [facility] and Screen - ONCE [id number] 22:19:06 Test Item Value Reference Range Interpretation Comments ABO & RH (test code B POSITIVE Performe d at [facility] = 20) Laboratory Serv [facility] Blood [facility] 01 [facility] s [address]Lqhs Free: [phone] A No. [id number] IAT (test code = Negative Performed a t [facility] 1185) Laboratory [facility] Blood [facility] [address] [place] [address]Jzmw Free: [phone] A No. [id number] [facility] and Screen - ONCE [id number] 22:19:06 Test Item Value Reference Range Interpretation Comments ABO & RH (test code B POSITIVE Performe d at [facility] = 20) Laboratory [facility] Blood [facility] [address] [place] [address]Awde Free: [phone] A No. [id number] IAT (test code = Negative Performed a t [facility] 1185) Laboratory [facility] Blood [facility] [place] [address] s [address]Guqy Free: [phone] A No. [id number] [facility]inteCBC with [id number] 21:48:41 Test Item Value Reference Range Interpretation Comments WBC (test code = 5.55 See_Comment [Automated 3590-2) message] The sy stem which generated this result transmitted reference range : 4.30 - 11.10 10*3/?L. The reference range was not used to interpret this result as normal/abnormal . RBC (test code = 3.88 See_Comment L [Automated 789-8) message] The sy stem which generated this result transmitted reference range : 3.93 - 5.25 10*6/?L. The reference range was not used to interpret this result as normal/abnormal . HGB (test code = 7.7 g/dL 11.6-15.0 L 718-7) HCT (test code = 26.2 % 35.7-45.2 L 4544-3) MCV (test code = 67.5 fL 80.6-95.5 L 787-2) MCH (test code = 19.8 pg 25.9-32.8 L 785-6) MCHC (test code = 29.4 g/dL 31.6-35.1 L 786-4) RDW-SD (test code = 41.2 fL 39.0-49.9 87040-2) RDW-CV (test code = 17.6 % 12.0-15.5 H 788-0) PLT (test code = 183 See_Comment [Automated 777-3) message] The sy stem which generated this result transmitted reference range : 166 - 358 10*3/ ?L. The reference r tana was not used to interpret this result as normal/abnormal . MPV (test code = 10.8 fL 9.5-12.9 87166-8) IPF % (test code = 8.4 % 1.3-7.7 H Platelet count [id number]) measured by fluorescence method. NRBC/100 WBC (test 0.0 See_Comment [Automat ed code = 9869044248) message] The system which generated this result transmitted reference range : 0.0 - 10.0 /100 WBCs. The refer ence range was not u sed to interpret th is result as normal/abnormal . NRBC x10^3 (test code See_Comment [Auto mated = 0011631088) message] The s ystem which generated this result transmitted reference range : 10*3/?L. The reference range was not used to interpret this result as normal/abnormal . GRAN MAT (NEUT) % 62.1 % (test code = 770-8) IMM GRAN % (test code 0.90 % = 3349859594) LYMPH % (test code = 28.1 % 736-9) MONO % (test code = 7.6 % 5905-5) EOS % (test code = 0.9 % 713-8) BASO % (test code = 0.4 % 706-2) GRAN MAT x10^3(ANC) 3.45 10*3/uL 1.88-7.09 (test code = 4739771040) IMM GRAN x10^3 (test 0.05 10*3/uL 0.00-0.06 code = 3762461796) LYMPH x10^3 (test code 1.56 10*3/uL 1.32-3.29 = 731-0) MONO x10^3 (test code 0.42 10*3/uL 0.33-0.92 = 742-7) EOS x10^3 (test code = 0.05 10*3/uL 0.03-0.39 711-2) BASO x10^3 (test code 0.01-0.07 = 704-7) Lab Interpretation Abnormal (test code = 11957-1) [facility] with Mfrqdfrbbvve1405-40-01 21:48:41 Test Item Value Reference Range Interpretation Comments WBC (test code = 5.55 See_Comment [Automated 8090-2) message] The sy stem which generated this result transmitted reference range : 4.30 - 11.10 10*3/?L. The reference range was not used to interpret this result as normal/abnormal . RBC (test code = 3.88 See_Comment L [Automated 025-8) message] The sy stem which generated this result transmitted reference range : 3.93 - 5.25 10*6/?L. The reference range was not used to interpret this result as normal/abnormal . HGB (test code = 7.7 g/dL 11.6-15.0 L 718-7) HCT (test code = 26.2 % 35.7-45.2 L 4544-3) MCV (test code = 67.5 fL 80.6-95.5 L 787-2) MCH (test code = 19.8 pg 25.9-32.8 L 785-6) MCHC (test code = 29.4 g/dL 31.6-35.1 L 786-4) RDW-SD (test code = 41.2 fL 39.0-49.9 34526-7) RDW-CV (test code = 17.6 % 12.0-15.5 H 788-0) PLT (test code = 183 See_Comment [Automated 777-3) message] The sy stem which generated this result transmitted reference range : 166 - 358 10*3/ ?L. The reference r tana was not used to interpret this result as normal/abnormal . MPV (test code = 10.8 fL 9.5-12.9 48690-3) IPF % (test code = 8.4 % 1.3-7.7 H Platelet count [id number]) measured by fluorescence method. NRBC/100 WBC (test 0.0 See_Comment [Automat ed code = 4275069240) message] The system which generated this result transmitted reference range : 0.0 - 10.0 /100 WBCs. The refer ence range was not u sed to interpret th is result as normal/abnormal . NRBC x10^3 (test code See_Comment [Auto mated = 1772302594) message] The s ystem which generated this result transmitted reference range : 10*3/?L. The reference range was not used to interpret this result as normal/abnormal . GRAN MAT (NEUT) % 62.1 % (test code = 770-8) IMM GRAN % (test code 0.90 % = 8239614116) LYMPH % (test code = 28.1 % 736-9) MONO % (test code = 7.6 % 5905-5) EOS % (test code = 0.9 % 713-8) BASO % (test code = 0.4 % 706-2) GRAN MAT x10^3(ANC) 3.45 10*3/uL 1.88-7.09 (test code = 0560284754) IMM GRAN x10^3 (test 0.05 10*3/uL 0.00-0.06 code = 8238147056) LYMPH x10^3 (test code 1.56 10*3/uL 1.32-3.29 = 731-0) MONO x10^3 (test code 0.42 10*3/uL 0.33-0.92 = 742-7) EOS x10^3 (test code = 0.05 10*3/uL 0.03-0.39 711-2) BASO x10^3 (test code 0.01-0.07 = 704-7) Lab Interpretation Abnormal (test code = 37968-1) [facility] URINALYSIS W/O SPECIFIC [id number] 18:49:00 Test Item Value Reference Range Interpretation Comments POCT PH U (test code = 3254) 6 mg/dl 5-8 POCT U LEUK EST (test code = neg Negative - Negative 3263) POCT U NIT (test code = 3262) neg Negative - Negative POCT U PROT (test code = 3259) trace Negative - Negative POCT U GLU (test code = 3256) neg Negative - Negative POCT U KETONE (test code = 3258) neg Negative - Negative POCT U BLD (test code = 3257) neg Negative - Negative Lab Interpretation (test code = Abnormal 72985-0) [facility] URINALYSIS W/O SPECIFIC [id number] 17:54:00 Test Item Value Reference Range Interpretation Comments POCT PH U (test code = 3254) 6 mg/dl 5-8 POCT U LEUK EST (test code = + Negative - Negative 3263) POCT U NIT (test code = 3262) Negative Negative - Negative POCT U PROT (test code = 3259) +++ Negative - Negative POCT U GLU (test code = 3256) Normal Negative - Negative POCT U KETONE (test code = 3258) Negative Negative - Negative POCT U BLD (test code = 3257) Trace Negative - Negative Lab Interpretation (test code = Abnormal 08667-0) [facility] URINALYSIS W/O SPECIFIC [id number] 13:29:00 Test Item Value Reference Range Interpretation Comments POCT PH U (test code = 3254) 5 mg/dl 5-8 POCT U LEUK EST (test code = neg Negative - Negative 3263) POCT U NIT (test code = 3262) neg Negative - Negative POCT U PROT (test code = 3259) neg Negative - Negative POCT U GLU (test code = 3256) neg Negative - Negative POCT U KETONE (test code = 3258) neg Negative - Negative POCT U BLD (test code = 3257) neg Negative - Negative [facility] URINALYSIS W/O SPECIFIC [id number] 21:49:00 Test Item Value Reference Range Interpretation Comments POCT PH U (test code = 3254) 7 mg/dl 5-8 POCT U LEUK EST (test code = neg Negative - Negative 3263) POCT U NIT (test code = 3262) neg Negative - Negative POCT U PROT (test code = 3259) neg Negative - Negative POCT U GLU (test code = 3256) neg Negative - Negative POCT U KETONE (test code = 3258) neg Negative - Negative POCT U BLD (test code = 3257) neg Negative - Negative Lab Interpretation (test code = Normal 15062-5) [facility] URINALYSIS W/O SPECIFIC [id number] 21:49:00 Test Item Value Reference Range Interpretation Comments POCT PH U (test code = 3254) 7 mg/dl 5-8 POCT U LEUK EST (test code = neg Negative - Negative 3263) POCT U NIT (test code = 3262) neg Negative - Negative POCT U PROT (test code = 3259) neg Negative - Negative POCT U GLU (test code = 3256) neg Negative - Negative POCT U KETONE (test code = 3258) neg Negative - Negative POCT U BLD (test code = 3257) neg Negative - Negative Lab Interpretation (test code = Normal 34258-5) [facility] URINALYSIS W/O SPECIFIC [id number] 21:43:00 Test Item Value Reference Range Interpretation Comments POCT PH U (test code = 3254) 6 mg/dl 5-8 POCT U LEUK EST (test code = n Negative - Negative 3263) POCT U NIT (test code = 3262) n Negative - Negative POCT U PROT (test code = 3259) n Negative - Negative POCT U GLU (test code = 3256) n Negative - Negative POCT U KETONE (test code = 3258) n Negative - Negative POCT U BLD (test code = 3257) n Negative - Negative Lab Interpretation (test code = Normal 70249-5) [facility] URINALYSIS W/O SPECIFIC [id number] 20:42:00 Test Item Value Reference Range Interpretation Comments POCT PH U (test code = 3254) 7 mg/dl 5-8 POCT U LEUK EST (test code = n Negative - Negative 3263) POCT U NIT (test code = 3262) n Negative - Negative POCT U PROT (test code = 3259) n Negative - Negative POCT U GLU (test code = 3256) n Negative - Negative POCT U KETONE (test code = 3258) n Negative - Negative POCT U BLD (test code = 3257) n Negative - Negative Lab Interpretation (test code = Normal 93019-4) [facility] URINALYSIS W/O SPECIFIC [id number] 18:50:00 Test Item Value Reference Range Interpretation Comments POCT PH U (test code = 3254) 7 mg/dl 5-8 POCT U LEUK EST (test code = neg Negative - Negative 3263) POCT U NIT (test code = 3262) neg Negative - Negative POCT U PROT (test code = 3259) trace Negative - Negative POCT U GLU (test code = 3256) neg Negative - Negative POCT U KETONE (test code = 3258) neg Negative - Negative POCT U BLD (test code = 3257) trace Negative - Negative Lab Interpretation (test code = Abnormal 24805-0) [facility] URINALYSIS W/O SPECIFIC [id number] 20:32:00 Test Item Value Reference Range Interpretation Comments POCT PH U (test code = 3254) 6 mg/dl 5-8 POCT U LEUK EST (test code = neg Negative - Negative 3263) POCT U NIT (test code = 3262) neg Negative - Negative POCT U PROT (test code = 3259) trace Negative - Negative POCT U GLU (test code = 3256) neg Negative - Negative POCT U KETONE (test code = 3258) neg Negative - Negative POCT U BLD (test code = 3257) neg Negative - Negative [facility] with [id number] 12:04:53 Test Item Value Reference Range Interpretation Comments WBC (test code = See_Comment H [Automated 6690-2) message] The system which generated this result transmit yeny reference range : 4.30 - 11.10 10*3/?L. The reference range was not used to interpret this result as normal/abnormal . RBC (test code = See_Comment L [Automated 789-8) message] The system which generated this result transmit yeny reference range : 3.93 - 5.25 10*6/?L. The reference range was not used to interpret this result as normal/abnormal . HGB (test code = 9.7 g/dL 11.6-15.0 L 718-7) HCT (test code = 30.9 % 35.7-45.2 L 4544-3) MCV (test code = 80.1 fL 80.6-95.5 L 787-2) MCH (test code = 25.1 pg 25.9-32.8 L 785-6) MCHC (test code = 31.4 g/dL 31.6-35.1 L 786-4) RDW-SD (test code = 39.9 fL 39.0-49.9 47681-5) RDW-CV (test code = 14.1 % 12.0-15.5 788-0) PLT (test code = See_Comment L [Automated 777-3) message] The system which generated this result transmit yeny reference range : 166 - 358 10*3/ ?L. The reference range was not u sed to interpret th is result as normal/abnormal . MPV (test code = 11.9 fL 9.5-12.9 08398-7) NRBC/100 WBC (test See_Comment [Automat ed code = 0104525484) message] The system which generated this result transmit yeny reference range : 0.0 - 10.0 /100 WBCs. The reference range was not used to interpret this result as normal/abnormal . NRBC x10^3 (test code <0.01 See_Comment [Auto mated = 9498187923) message] The system which generated this result transmit yeny reference range : 10*3/?L. The reference range was not used to interpret this result as normal/abnormal . GRAN MAT (NEUT) % 91.7 % (test code = 770-8) IMM GRAN % (test code 0.60 % = 4973056197) LYMPH % (test code = 4.7 % 736-9) MONO % (test code = 2.9 % 5905-5) EOS % (test code = 0.0 % 713-8) BASO % (test code = 0.1 % 706-2) GRAN MAT x10^3(ANC) 12.73 10*3/uL 1.88-7.09 H (test code = 6089969378) IMM GRAN x10^3 (test 0.09 10*3/uL 0.00-0.06 H code = 3984693457) LYMPH x10^3 (test code 0.65 10*3/uL 1.32-3.29 L = 731-0) MONO x10^3 (test code 0.40 10*3/uL 0.33-0.92 = 742-7) EOS x10^3 (test code = <0.03 0.03-0.39 L 711-2) BASO x10^3 (test code <0.03 0.01-0.07 = 704-7) Lab Interpretation Abnormal (test code = 81741-0) [facility] IMMUNE [id number] 08:45:47 Test Item Value Reference Range Interpretation Comments RHIG CANDIDATE? No- see comment Patient i s not a (test code = candidate for R hIg- 5055) Patient is Rh Positive.Perfor med at [facility] Laboratory Services - [facility] [address] [place] [address]Rcoh Free: [phone] A No. [id number] [facility] PointeVENOUS CORD [id number] 05:22:32 Test Item Value Reference Range Interpretation Comments VENOUS BASE EXCESS, CORD mEq/L (test code = 0774749120) VENOUS PH, CORD (test 7.25-7.45 code = 8405644006) VENOUS PC02, CORD (test See_Comment [Au tomated message] code = 2762482202) The syste m which generated this result transmitted ref erence range: 27 - 49 mmHg. The reference r tana was not used to interpret this result as normal/abnor mal. VENOUS PO2, CORD (test See_Comment H [Aut omated message] code = 9633913904) The syste m which generated this result transmitted ref erence range: 17 - 41 mmHg. The reference r tana was not used to interpret this result as normal/abnor mal. VENOUS BICARBONATE, CORD See_Comment [A utomated message] (test code = 0751053844) The system which generated this result transmitted ref erence range: 12 - 29 mEq/L. The reference r tana was not used to interpret this result as normal/abnor mal. Lab Interpretation (test Abnormal code = 48869-2) [facility] ONLY - SYPHILIS [id number] 17:53:01 Test Item Value Reference Range Interpretation Comments Syphilis IgG/IgM (test Non-reactive Non-reactive code = 56353-6) JESUS (test code = JESUS) Non-reactive - No serologic evidence of T. pallidum infection. Cannot exclude incubating or early syphilis. Submit a second specimen in 2-4 weeks if syphilis is clinically suspected. Equivocal - Further testing to follow. Reactive - Further testing to follow. Lab Interpretation (test Normal code = 95388-7) [facility]inteHIV 1/2 AG-AB WITH [id number] 07:43:05 Test Item Value Reference Range Interpretation Comments HIV Negative Negative Semi-quantitative (test code = 18863-1) JESUS (test code = Non-reactive for HIV-1 JESUS) antigen and HIV-1/HIV-2 antibodies. ?No laboratory evidence of HIV infection. ?Repeat in 2-4 weeks if acute HIV infection is suspected. [facility]inteHepatitis B Surface [id number] 06:22:34 Test Item Value Reference Range Interpretation Comments HBsAg Semi-Quantitative (test code = Negative Negative 5195-3) [facility] and Screen - ONCE [id number] 05:39:15 Test Item Value Reference Range Interpretation Comments ABO & RH (test code B POSITIVE Performe d at [facility] = 20) Laboratory Serv [facility] Blood Bank3 01 [facility] s [address]Qcxb Free: [phone] A No. [id number] IAT (test code = Negative Performed a t [facility] 1185) Laboratory Serv [facility] Blood Bank3 [facility] s [address]Fexh Free: [phone] A No. [id number] [facility] with [id number] 05:12:21 Test Item Value Reference Range Interpretation Comments WBC (test code = See_Comment [Automated 6690-2) message] The sy stem which generated this result transmitted reference range : 4.30 - 11.10 10*3/?L. The reference range was not used to interpret this result as normal/abnormal . RBC (test code = See_Comment L [Automated 789-8) message] The sy stem which generated this result transmitted reference range : 3.93 - 5.25 10*6/?L. The reference range was not used to interpret this result as normal/abnormal . HGB (test code = 9.7 g/dL 11.6-15.0 L 718-7) HCT (test code = 31.5 % 35.7-45.2 L 4544-3) MCV (test code = 81.0 fL 80.6-95.5 787-2) MCH (test code = 24.9 pg 25.9-32.8 L 785-6) MCHC (test code = 30.8 g/dL 31.6-35.1 L 786-4) RDW-SD (test code = 39.6 fL 39.0-49.9 80425-6) RDW-CV (test code = 13.7 % 12.0-15.5 788-0) PLT (test code = See_Comment [Automated 777-3) message] The sy stem which generated this result transmitted reference range : 166 - 358 10*3/ ?L. The reference r tana was not used to interpret this result as normal/abnormal . MPV (test code = 12.2 fL 9.5-12.9 82386-2) NRBC/100 WBC (test See_Comment [Automat ed code = 9620669061) message] The system which generated this result transmitted reference range : 0.0 - 10.0 /100 WBCs. The refer ence range was not u sed to interpret th is result as normal/abnormal . NRBC x10^3 (test code <0.01 See_Comment [Auto mated = 9509242419) message] The s ystem which generated this result transmitted reference range : 10*3/?L. The reference range was not used to interpret this result as normal/abnormal . GRAN MAT (NEUT) % 56.9 % (test code = 770-8) IMM GRAN % (test code 0.80 % = 3971235756) LYMPH % (test code = 32.5 % 736-9) MONO % (test code = 9.0 % 5905-5) EOS % (test code = 0.6 % 713-8) BASO % (test code = 0.2 % 706-2) GRAN MAT x10^3(ANC) 3.59 10*3/uL 1.88-7.09 (test code = 6314979645) IMM GRAN x10^3 (test 0.05 10*3/uL 0.00-0.06 code = 2100490192) LYMPH x10^3 (test code 2.05 10*3/uL 1.32-3.29 = 731-0) MONO x10^3 (test code 0.57 10*3/uL 0.33-0.92 = 742-7) EOS x10^3 (test code = 0.04 10*3/uL 0.03-0.39 711-2) BASO x10^3 (test code <0.03 0.01-0.07 = 704-7) Lab Interpretation Abnormal (test code = 21679-5) [facility]
[2022-11-10] MEDS ORDERED: ACETAMINOPHEN 500 MG TAB ONE (01:03)
[2022-11-10] MEDS ORDERED: NA CHLORIDE 0.9% 1,000 ML ONE (01:03)
[2022-11-10 01:29] LABS: Absolute Lymphocytes (CBC) 3.2 K/uL (0.7-4.9); Hematocrit 31.1 % (36.0-45.0); MCV 80.5 fL (80-100); MPV 9.3 fL (7.6-11.3); RBC Red Blood Cell Count 3.86 M/uL (3.86-4.86); Specific Gravity 1.025 (1.005-1.030); Urine Bacteria None Seen /HPF (<20); Urine Bilirubin NEGATIVE (Negative); Urine Blood 3+ (OVER) (Negative); Urine Clarity Clear (Clear); Urine Color Light-Yellow (Yellow); Urine Glucose NEGATIVE (Negative); Urine Mucus Slight /HPF (None Seen); Urine Protein NEGATIVE (Negative); Urine RBC >50 /HPF (None Seen); Urine Urobilinogen 1+ (Normal); Urine pH 6.5 (5.0-7.0)
[2022-11-10 01:35] LABS: Specific Gravity 1.025 (1.005-1.030)
[2022-11-10 02:03] LABS: Potassium 3.7 mEq/L (3.5-5.1)
--- NOTE | 2022-11-10 02:18 | EDPHYS ---
Physician Documentation [facility] Name: Geraldo Garcia Age: 22 yrs Sex: Female : 2000 Arrival Date: 11/10/2022 Time: 00:15 Bed 7 Private MD: ED Physician Estiven Coello HPI: 11/10 01:00 This 22 yrs old Female presents to ER via Ambulatory with complaints of cp Vaginal Bleeding, + Preg <12wks. 01:00 The patient presents to the emergency department with abdominal pain, of the suprapubic cp area and left lower quadrant, that started today, described as crampy, vaginal bleeding, that is light, with no clots. 01:00 The estimated gestational age is 8 weeks. cp 01:00 course: care: none, Leakage of Fluid: none appreciated, Ultrasound: cp the patient has not had an ultrasound. Associated signs and symptoms: Pertinent negatives: dysuria, fever, nausea, ruptured membranes, vomiting. 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 Last tetanus immunization: < 5 years ago Flu vaccine is not up to date. - Social history:: Smoking status: Patient/guardian denies using tobacco, the patient reports quitting approximately 2 years ago, Patient uses alcohol, occasionally. Patient/guardian denies using street drugs. ROS: 01:05 Constitutional: Negative for body aches, chills, fever, poor PO intake. cp 01:05 Eyes: Negative for injury, pain, redness, and discharge. cp 01:05 ENT: Negative for drainage from ear(s), ear pain, sore throat, difficulty swallowing, difficulty handling secretions. 01:05 Cardiovascular: Negative for chest pain, palpitations. 01:05 Respiratory: Negative for cough, shortness of breath, wheezing. 01:05 Abdomen/GI: Positive for abdominal cramps, Negative for vomiting, diarrhea, constipation. 01:05 Back: Negative for pain at rest, pain with movement. 01:05 Neuro: Negative for altered mental status, headache, weakness. 01:05 All other systems are negative. Exam: 01:10 Constitutional: The patient appears in no acute distress, alert, awake, non-toxic, well cp developed, well nourished. 01:10 Head/Face: Normocephalic, atraumatic. cp 01:10 Eyes: Periorbital structures: appear normal, Conjunctiva: normal, no exudate, no cp injection, Sclera: no appreciated abnormality, Lids and lashes: appear normal, bilaterally. 01:10 ENT: External ear(s): are unremarkable, Nose: is normal, Mouth: Lips: moist, Oral cp mucosa: pink and intact, moist, Posterior pharynx: is normal, airway is patent, no erythema, no exudate. 01:10 Neck: ROM/movement: is normal, is supple, without pain, no range of motions limitations. 01:10 Chest/axilla: Inspection: normal. 01:10 Cardiovascular: Rate: normal, Rhythm: regular. 01:10 Respiratory: the patient does not display signs of respiratory distress, Respirations: normal, no use of accessory muscles, no retractions, labored breathing, is not present, Breath sounds: are clear throughout, no decreased breath sounds, no stridor, no wheezing. 01:10 Abdomen/GI: Inspection: abdomen appears normal, Bowel sounds: active, all quadrants, Palpation: soft, in all quadrants, mild abdominal tenderness, in the suprapubic area and left lower quadrant, rebound tenderness, is not appreciated, involuntary guarding, is not appreciated. 01:10 Back: CVA tenderness, is absent. 01:10 Neuro: Orientation: to person, place \T\ time. Mentation: is normal. Vital Signs: 00:26 BP 108 / 58; Pulse 70; Resp 18; Temp 98(O); Pulse Ox 100% on R/A; Weight 51.26 kg; pf1 Height 5 ft. 1 in. ; Pain 5/10; 02:38 BP 108 / 58; Pulse 65; Resp 16; Pulse Ox 98% on R/A; ll3 00:26 Body Mass Index 21.35 (51.26 kg, 154.94 cm) pf1 00:26 Pain Scale: Adult pf1 MDM: 00:28 Patient medically screened. cp 01:00 Differential diagnosis: STD, ectopic . 02:17 Data reviewed: vital signs, nurses notes, lab test result(s), radiologic studies, cp ultrasound. 02:17 Consideration of Admission/Observation Escalation of care including cp admission/observation considered. I considered the following discharge prescriptions or medication management in the emergency department Medications were administered in the Emergency Department. See MAR. Counseling: I had a detailed discussion with the patient and/or guardian regarding: the historical points, exam findings, and any diagnostic results supporting the discharge/admit diagnosis, lab results, radiology results, the need for outpatient follow up, an OB/Gyne specialist, to return to the emergency department if symptoms worsen or persist or if there are any questions or concerns that arise at home. Response to treatment: the patient's symptoms have mildly improved after treatment, and as a result, I will discharge patient. ED course: VSS. Discussed results of today's testing that showed viable IUP as reported by US tech. Will discharge to home for continued monitoring with threatened miscarriage precautions. 11/10 00:47 Order name: Abo/rh Typing; Complete Time: 02:15 11/10 02:16 Interpretation: Reviewed. 11/10 00:47 Order name: Basic Metabolic Panel; Complete Time: 02:15 11/10 02:15 Interpretation: Normal except: NA 134; CRE 0.52. 11/10 00:47 Order name: CBC with Diff 11/10 01:52 Interpretation: Normal except: HGB 10.4; HCT 31.1; MCH 26.9; RDW 18.6; NATHANIEL% 40.8; LYM% cp 48.0. 11/10 00:47 Order name: Test, Urine; Complete Time: 01:52 11/10 01:53 Interpretation: Reviewed. 11/10 00:47 Order name: Quantitative Hcg; Complete Time: 02:15 11/10 02:16 Interpretation: Reviewed. 11/10 00:47 Order name: Urinalysis w/ reflexes; Complete Time: 01:52 11/10 01:53 Interpretation: Normal except: UBLD 3+ (OVER); UUROB 1+; URBC >50. 11/10 01:35 Order name: CBC Smear Scan EDKY 11/10 00:47 Order name: US Transvaginal Ob cp 11/10 00:47 Order name: IV Saline Lock; Complete Time: 00:54 cp 11/10 00:47 Order name: Labs collected and sent; Complete Time: 00:54 cp 11/10 00:47 Order name: NPO; Complete Time: 00:54 cp Administered Medications: 01:01 Drug: NS 0.9% IV 1000 ml Route: IV; Rate: 1 bolus; Site: right antecubital; kl 02:37 Follow up: Response: No adverse reaction; IV Status: Completed infusion; IV Intake: ll3 1000ml 01:02 Drug: Acetaminophen PO 650 mg Route: PO; kl 02:37 Follow up: Response: No adverse reaction ll3 Disposition Summary: 11/10/22 02:17 Discharge Ordered Location: Home cp Problem: new cp Symptoms: have improved cp Condition: Stable cp Diagnosis - Threatened cp Followup: cp - With: Private Physician - When: 1 week - Reason: Recheck today's complaints Discharge Instructions: - Discharge Summary Sheet cp - Abdominal Pain During cp - Care cp - Threatened Miscarriage cp - Vaginal Bleeding During , First Trimester cp - Activity Restriction During cp Forms: - Medication Reconciliation Form cp - Thank You Letter cp - Antibiotic Education cp - Prescription Opioid Use cp - Work release form ll3 Prescriptions: - [id number] acid - take 1 tablet by ORAL route once daily; 60 tablet; Refills: 0, Product cp Selection Permitted Signatures: Dispatcher [employer] Guerline Durant RN RN Vega Evans PA PA cp Shirlene Phipps RN RN pf1 Anna Polanco RN ll3
--- NOTE | 2022-11-10 02:18 | ER ---
Nurse's Notes [facility] Name: Geraldo Garcia Age: 22 yrs Sex: Female : 2000 Arrival Date: 11/10/2022 Time: 00:15 Bed 7 Private MD: Diagnosis: Threatened Presentation: 11/10 00:26 Chief complaint: Patient states: vaginal bleeding,onset 1 hour ago with LLQ pain and pf1 left lower back pain of 5. Patient stated is currently 7-8 weeks . Patient stated had a baby 2 months ago. A0. 00:26 Coronavirus screen: Vaccine status: Patient reports being unvaccinated. Client denies pf1 travel out of the [place] in the last 14 days. At this time, the client does not indicate any symptoms associated with coronavirus-19. Ebola Screen: Patient negative for fever greater than or equal to 101.5 degrees Fahrenheit, and additional compatible Ebola Virus Disease symptoms. Initial Sepsis Screen: Does the patient meet any 2 criteria? No. Patient's initial sepsis screen is negative. Does the patient have a suspected source of infection? No. Patient's initial sepsis screen is negative. Risk Assessment: Do you want to hurt yourself or someone else? Patient reports no desire to harm self or others. 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 Last tetanus immunization: < 5 years ago Flu vaccine is not up to date. - Social history:: Smoking status: Patient/guardian denies using tobacco, the patient reports quitting approximately 2 years ago, Patient uses alcohol, occasionally. Patient/guardian denies using street drugs. Screenin:59 [facility] ED Fall Risk Assessment (Adult) History of falling in the last 3 months, pf1 including since admission No falls in past 3 months (0 pts) Confusion or Disorientation No (0 pts) Intoxicated or Sedated No (0 pts) Impaired Gait No (0 pts) Mobility Assist Device Used No (0 pt) Altered Elimination No (0 pt) Score/Fall Risk Level 0 - 2 = Low Risk Oriented to surroundings, Maintained a safe environment, Educated pt \T\ family on fall prevention, incl call for assistance when getting out of bed, Assessed \T\ reinforced patient's understanding of fall precautions, Provided non-skid footwear, Hourly rounding (assess needs \T\ fall precautionary measures) done, Used ambulatory aids as needed (educated on \T\ assisted with), Used gait belt as appropriate. Abuse screen: Denies threats or abuse. Nutritional screening: No deficits noted. Tuberculosis screening: No symptoms or risk factors identified. Assessment: 00:57 General: Appears in no apparent distress. comfortable, well groomed, well developed, pf1 Behavior is calm, cooperative, appropriate for age, quiet. Pain: Complains of pain in back and abdomen Pain currently is 5 out of 10 on a pain scale. Neuro: Level of Consciousness is awake, alert, obeys commands, Oriented to person, place, time, situation. Cardiovascular: Capillary refill < 3 seconds Patient's skin is warm and dry. Respiratory: Airway is patent Trachea midline Respiratory effort is even, unlabored, Respiratory pattern is regular, symmetrical. GI: Abdomen is flat, non-distended, Reports lower abdominal pain, cramping. : Reports vaginal bleeding that is. : Reports Patient denies any blood clots. EENT: No deficits noted. No signs and/or symptoms were reported regarding the EENT system. Derm: No deficits noted. No signs and/or symptoms reported regarding the dermatologic system. Musculoskeletal: No deficits noted. No signs and/or symptoms reported regarding the musculoskeletal system. Vital Signs: 00:26 BP 108 / 58; Pulse 70; Resp 18; Temp 98(O); Pulse Ox 100% on R/A; Weight 51.26 kg; pf1 Height 5 ft. 1 in. ; Pain 5/10; 02:38 BP 108 / 58; Pulse 65; Resp 16; Pulse Ox 98% on R/A; ll3 00:26 Body Mass Index 21.35 (51.26 kg, 154.94 cm) pf1 00:26 Pain Scale: Adult pf1 ED Course: 00:16 Patient arrived in ED. ja2 00:21 Vega Mora PA is PHCP. cp 00:21 Estiven Coello MD is Attending Physician. cp 00:50 Inserted saline lock: 20 gauge in right antecubital area, using aseptic technique. Blood collected. 00:54 Abo/rh Typing Sent. kl 00:54 Basic Metabolic Panel Sent. kl 00:54 Test, Urine Sent. kl 00:54 CBC with Diff Sent. kl 00:54 Quantitative Hcg Sent. kl 00:54 Urinalysis w/ reflexes Sent. 00:56 Triage completed. pf1 01:00 Arm band placed on. ll3 02:04 US Transvaginal Ob In Process Unspecified. EDMS 02:37 No provider procedures requiring assistance completed. IV discontinued, intact, ll3 bleeding controlled, No redness/swelling at site. Pressure dressing applied. 02:38 Patient has correct armband on for positive identification. Bed in low position. Call ll3 light in reach. Side rails up X 1. Adult w/ patient. Administered Medications: 01:01 Drug: NS 0.9% IV 1000 ml Route: IV; Rate: 1 bolus; Site: right antecubital; kl 02:37 Follow up: Response: No adverse reaction; IV Status: Completed infusion; IV Intake: ll3 1000ml 01:02 Drug: Acetaminophen PO 650 mg Route: PO; kl 02:37 Follow up: Response: No adverse reaction ll3 Medication: 02:38 VIS not applicable for this client. ll3 Intake: 02:37 IV: 1000ml; Total: 1000ml. ll3 Outcome: 02:17 Discharge ordered by MD. cp 02:37 Discharged to home ambulatory, with significant other. ll3 02:37 Condition: stable 02:37 Discharge instructions given to patient, significant other, Instructed on discharge instructions, follow up and referral plans. medication usage, Demonstrated understanding of instructions, follow-up care, medications, Prescriptions given X 1. 02:39 Patient left the ED. ll3 Signatures: Dispatcher [employer] EDMS Guerline Katz RN RN kl Page, Corey, PA PA cp Alexander, Jessica ja2 Loubet, Lynsea, RN RN ll3 Shirlene Phipps RN RN pf1 Corrections: (The following items were deleted from the chart) 00:56 00:51 Chief complaint: Patient states: vaginal bleeding,onset 1 hour ago with LLQ pain pf1 and left lower back pain of 5. Patient stated is currently 7-8 weeks . Patient stated had a baby 2 months ago. A0 pf1
[2022-11-10 02:57] LABS: Anisocytosis 2+; Blood Morphology Comment NOTED (NOT SEEN); Ovalocytes 1+; Platelet Estimate ADEQ; White Blood Cell Scan OK (OK)
[2022-11-10 03:04] VITALS: BP 108/58; TEMP 98
[2022-11-10 03:06] VITALS: O2SAT 98
--- NOTE | 2022-11-10 10:29 | RAD REPORT ---
EXAM DESCRIPTION: US First Trimester , Transabdominal and Transvaginal CLINICAL HISTORY: Abd cramping, ; Vaginal bleeding TECHNIQUE: Real-time transabdominal and transvaginal obstetrical ultrasound of the maternal pelvis a nd a first trimester with image documentation. Transvaginal imaging was used for better e valuation of the fetus and adnexa. COMPARISON: No relevant prior studies available. FINDINGS: Gestation: Single intrauterine gestational sac. Mean sac diameter measures 14.8 mm cor responding to an estimated gestational age of 6 weeks 2 days. Garten-rump length measures 6.3 mm cor responding to an estimated gestational age of 6 weeks 4 days. There is a small yolk sac. ca rdiac activity measures 131 BPM. Prominent heterogeneous area along the left anterior aspect of the gestational sac measuring approximately 2.7 x 1.5 x 1.4 cm. Placenta/amniotic fluid: Cannot be adequately evaluated due to the early gestational age. Uterus/cervix: The uterus is anteverted and measures 9.7 x 4.8 x 7.1 cm. No myometrial mass. Ovaries: Neither ovary is visualized. Free fluid: Small amount of free fluid within the cul-de-sac. IMPRESSION: 1. Single live intrauterine gestation. Moderate subchorionic hemorrhage. 2. Estimated gestational age by ultrasound is 6 weeks 4 days. 3. Estimated due date by ultrasound is 07/02/2023. Electronically signed by: Sb Zimmerman MD 11/10/2022 2:39 AM CDT Due to temporary technical issues with the PACS/Fluency reporting system, reports are being signed by the in house radiologist without review as a courtesy to ensure prompt reporting. The interpreting r adiologist is fully responsible for the content of the report.
== END 2022-11-10 02:39 | disposition home or self-care (01) ==
LOC: ER 00:15
DX: O20.0 Threatened abortion (principal); Z3A.08 8 weeks gestation of pregnancy
CPT/HCPCS: 85025; 81001; 80048; 36415; 86900; 81025; 86901; 84702; 76817; J7030